=== PATIENT | female | born 1935 | race Caucasian/White ===

== ENCOUNTER → 2017-07-28 09:49 | Outpatient (CLI) | payer MEDICARE, MEDICAID, SELFPAY ==
[2017-07-28 10:22] LABS: Basophils % 0.8 % (0.1-2.0); Eosinophils # 0.3 K/mm3 (0.0-0.4); Eosinophils % 7.5 % (0.1-12.0); Hematocrit 26.3 % (37.0-47.0); Hemoglobin 8.1 g/dL (12.2-16.2); Lymphocytes # 1.2 K/mm3 (0.7-4.5); Lymphocytes % 28.3 K/mm3 (10-50); Mean Corpuscular HGB Conc 30.9 g/dL (31.8-35.4); Mean Corpuscular Hemoglobin 22.8 pg (27.0-31.2); Mean Platelet Volume 8.8 fl (7.4-10.4); Monocytes # 0.3 K/mm3 (0.1-1.0); Monocytes % 8.2 % (1.7-9.3); Neutrophils # 2.3 K/mm3 (1.8-7.8); Neutrophils % 55.3 % (37.0-80.0); Platelet Count 341 K/mm3 (142-424); Red Blood Count 3.56 M/mm3 (4.20-5.40); White Blood Count 4.1 K/mm3 (4.8-10.8)
[2017-07-28 11:20] LABS: Iron 14 ug/dl (28-170)
[2017-07-29 08:23] LABS: Iron 16 ug/dL (27-139); Iron Saturation 4 % (15-55); UIBC 377 ug/dL (118-369)
[2017-07-31 10:53] LABS: Immunoglobulin A, Qn 223 mg/dL (64-422); Tissue Transglutaminase IgA Ab <2 U/mL (0-3); Tissue Transglutaminase IgG Ab <2 U/mL (0-5)
== END ==
PROVIDERS: PCP Family Medicine Geriatric Medicine; Visit Provider Internal Medicine
DX: R06.09 Other forms of dyspnea (principal); D64.9 Anemia, unspecified; R53.83 Other fatigue
CPT/HCPCS: 36415; 82784; 83516; 83540; 83550; 85025

== ENCOUNTER → 2017-08-27 15:15 | Outpatient (CLI) | payer MEDICARE, MEDICAID, SELFPAY ==
[2017-08-27 16:11] LABS: Basophils % 0.7 % (0.1-2.0); Eosinophils # 0.3 K/mm3 (0.0-0.4); Eosinophils % 5.5 % (0.1-12.0); Hematocrit 28.2 % (37.0-47.0); Hemoglobin 8.4 g/dL (12.2-16.2); Lymphocytes # 1.5 K/mm3 (0.7-4.5); Lymphocytes % 26.1 K/mm3 (10-50); Mean Corpuscular HGB Conc 29.7 g/dL (31.8-35.4); Mean Corpuscular Hemoglobin 21.6 pg (27.0-31.2); Mean Corpuscular Volume 72.6 fl (81-99); Mean Platelet Volume 7.7 fl (7.4-10.4); Monocytes # 0.4 K/mm3 (0.1-1.0); Monocytes % 6.6 % (1.7-9.3); Neutrophils # 3.5 K/mm3 (1.8-7.8); Neutrophils % 61.1 % (37.0-80.0); Platelet Count 396 K/mm3 (142-424); Red Blood Count 3.88 M/mm3 (4.20-5.40); Red Cell Distribution Width 14.7 % (11.5-17.5); White Blood Count 5.7 K/mm3 (4.8-10.8)
[2017-08-27 19:28] LABS: Alanine Aminotransferase 21 U/L (12-78); Albumin Level 3.7 gm/dL (3.4-5.0); Albumin/Globulin Ratio 1.2 (1.1-1.8); Alkaline Phosphatase 110 U/L (46-116); Anion Gap 14.2 mEq/L (5-15); Aspartate Amino Transferase 14 U/L (15-37); Bilirubin,Total 0.4 mg/dL (0.2-1.0); Blood Urea Nitrogen 7 mg/dL (7-18); Calcium 8.6 mg/dL (8.5-10.1); Carbon Dioxide 28 mmol/L (21.0-32.0); Chloride 102 mmol/L (98-107); Creatinine,Serum 0.84 mg/dL (0.55-1.02); Estimated Glomerular Filt Rate 65 ml/min (>60); Free T4 (Free Thyroxine) 1.02 ng/dl (0.76-1.46); GFR (African American) 79 ML/MIN (>60); Glucose 90 mg/dL (74-106); Potassium 3.2 mmoL/L (3.5-5.1); Sodium 141 mmol/L (136-145); Thyroid Stimulating Hormone 2.14 uIU/ml (0.358-3.740); Total Protein,Serum 6.7 gm/dL (6.4-8.2)
[2017-08-29 15:18] LABS: Peripheral Smear Review Scanned Result
[2017-08-29 18:30] LABS: Folate 6.2 ng/mL (>3.0); Vitamin B12 431 pg/mL (232-1245)
== END ==
PROVIDERS: Visit Provider Nurse Practitioner Family
DX: D50.9 Iron deficiency anemia, unspecified (principal); I10 Essential (primary) hypertension
CPT/HCPCS: 36415; 80053; 82607; 82746; 84439; 84443; 85025

== ENCOUNTER → 2017-09-16 14:56 | Outpatient (POV) | payer MEDICARE, MEDICAID, SELFPAY ==
[2017-09-16 15:26] LABS: Basophils % 0.7 % (0.1-2.0); Eosinophils # 0.2 K/mm3 (0.0-0.4); Eosinophils % 3.7 % (0.1-12.0); Hematocrit 30.2 % (37.0-47.0); Lymphocytes # 1.4 K/mm3 (0.7-4.5); Lymphocytes % 24.8 K/mm3 (10-50); Mean Corpuscular HGB Conc 29.8 g/dL (31.8-35.4); Mean Corpuscular Hemoglobin 21.6 pg (27.0-31.2); Mean Corpuscular Volume 72.4 fl (81-99); Mean Platelet Volume 8.1 fl (7.4-10.4); Monocytes # 0.3 K/mm3 (0.1-1.0); Monocytes % 5.1 % (1.7-9.3); Neutrophils # 3.6 K/mm3 (1.8-7.8); Neutrophils % 65.8 % (37.0-80.0); Platelet Count 386 K/mm3 (142-424); Red Blood Count 4.18 M/mm3 (4.20-5.40); Red Cell Distribution Width 15.7 % (11.5-17.5); Reticulocyte % (Auto) 1.6 % (0.9-3.2); White Blood Count 5.5 K/mm3 (4.8-10.8)
[2017-09-16 18:13] LABS: Ferritin 8 ng/mL (8-388)
[2017-09-18 08:25] LABS: Iron 17 ug/dL (27-139); UIBC 459 ug/dL (118-369)
[2017-09-18 09:48] LABS: Iron Saturation 4 % (15-55)
== END ==
PROVIDERS: Visit Provider Nurse Practitioner
DX: D50.9 Iron deficiency anemia, unspecified (principal)
CPT/HCPCS: 36415; 82728; 83550; 85025; 85044

== ENCOUNTER → 2017-09-17 12:00 | Outpatient (CLI) | payer MEDICARE, MEDICAID, SELFPAY ==
[2017-09-18 14:15] LABS: Occult Blood,Stool Negative (Negative)
[2017-09-18 14:16] LABS: Occult Blood,Stool Negative (Negative)
== END ==
PROVIDERS: Visit Provider Nurse Practitioner
DX: D50.9 Iron deficiency anemia, unspecified (principal)
CPT/HCPCS: 82272; G0328

== ENCOUNTER → 2017-09-18 13:11 | Outpatient (CLI) | payer MEDICARE, MEDICAID, SELFPAY ==
[2017-09-18 14:16] LABS: Occult Blood,Stool Negative (Negative)
== END ==
PROVIDERS: Visit Provider Nurse Practitioner
DX: D50.9 Iron deficiency anemia, unspecified (principal)
CPT/HCPCS: 82272; G0328

== ENCOUNTER 2017-09-28 12:40 | Outpatient (CLI) | payer MEDICARE, MEDICAID, SELFPAY ==
[2017-09-28 13:18] VITALS: BP 152/81; PULSE 81; RESP 18; TEMP 36.4; O2SAT 97
[2017-09-28 13:33] VITALS: BP 151/79; PULSE 79; RESP 18; O2SAT 96
[2017-09-28 13:48] VITALS: BP 157/80; PULSE 80; RESP 18; O2SAT 97
[2017-09-28 14:04] VITALS: BP 150/72; PULSE 78; RESP 18; O2SAT 97
[2017-09-28 14:20] VITALS: BP 154/81; PULSE 85; RESP 18; TEMP 36.5; O2SAT 96
== END 2017-09-28 14:30 | disposition home or self-care (01) ==
LOC: INF 12:43
PROVIDERS: Family Provider Family Medicine Geriatric Medicine; PCP Nurse Practitioner Family; Visit Provider Internal Medicine
DX: D50.9 Iron deficiency anemia, unspecified (principal); D64.9 Anemia, unspecified; T45.4X5A Adverse effect of iron and its compounds, initial encounter
CPT/HCPCS: 96365; J1756

== ENCOUNTER → 2017-10-01 12:44 | Outpatient (CLI) | payer MEDICARE, MEDICAID, SELFPAY | PROVIDERS: PCP Internal Medicine Adolescent Medicine; Visit Provider Internal Medicine | DX: G47.33 Obstructive sleep apnea (adult) (pediatric) (principal) | CPT/HCPCS: G0399 ==

== ENCOUNTER 2017-10-05 12:25 | Outpatient (CLI) | payer MEDICARE, MEDICAID, SELFPAY ==
[2017-10-05 12:54] VITALS: BP 152/84; PULSE 76; RESP 18; TEMP 36.3; O2SAT 97
[2017-10-05 13:09] VITALS: BP 149/89; PULSE 74; RESP 18; O2SAT 97
[2017-10-05 13:24] VITALS: BP 151/80; PULSE 75; RESP 18; O2SAT 97
[2017-10-05 13:45] VITALS: BP 154/82; PULSE 71; RESP 18; TEMP 36.5; O2SAT 96
== END 2017-10-05 13:50 | disposition home or self-care (01) ==
LOC: INF 12:41
PROVIDERS: Family Provider Family Medicine Geriatric Medicine; PCP Internal Medicine Adolescent Medicine; Visit Provider Internal Medicine
DX: D50.9 Iron deficiency anemia, unspecified (principal); T45.4X5A Adverse effect of iron and its compounds, initial encounter
CPT/HCPCS: 96365; J1756

== ENCOUNTER 2017-10-12 12:35 | Outpatient (CLI) | payer MEDICARE, MEDICAID, SELFPAY ==
[2017-10-12 13:05] VITALS: BP 153/79; PULSE 73; RESP 18; TEMP 36.8
[2017-10-12 13:35] VITALS: BP 155/91; PULSE 73; RESP 18
[2017-10-12 14:05] VITALS: BP 166/72; PULSE 69; RESP 18
[2017-10-12 14:13] VITALS: BP 166/86; PULSE 69; RESP 18
[2017-10-12 14:20] VITALS: BP 166/86; PULSE 69; RESP 18
== END 2017-10-12 14:33 | disposition home or self-care (01) ==
LOC: INF 12:35
PROVIDERS: Family Provider Family Medicine Geriatric Medicine; PCP Internal Medicine Adolescent Medicine; Visit Provider Internal Medicine
DX: D50.9 Iron deficiency anemia, unspecified (principal); T45.4X5A Adverse effect of iron and its compounds, initial encounter
CPT/HCPCS: 96365; J1756

== ENCOUNTER 2017-10-22 12:46 | Outpatient (CLI) | payer MEDICARE, MEDICAID, SELFPAY ==
[2017-10-22 13:23] VITALS: BP 146/84; PULSE 81; RESP 18; TEMP 36.6; O2SAT 96
[2017-10-22 13:50] VITALS: BP 150/81; PULSE 75; RESP 18
[2017-10-22 14:15] VITALS: BP 134/79; PULSE 75; RESP 20; TEMP 36.6; O2SAT 97
[2017-10-22 14:30] VITALS: BP 146/84; PULSE 79; RESP 18
== END 2017-10-22 14:35 | disposition home or self-care (01) ==
LOC: INF 12:46
PROVIDERS: Family Provider Family Medicine Geriatric Medicine; PCP Internal Medicine Adolescent Medicine; Visit Provider Internal Medicine
DX: D50.9 Iron deficiency anemia, unspecified (principal); D64.9 Anemia, unspecified
CPT/HCPCS: 96365; J1756

== ENCOUNTER → 2017-10-28 13:54 | Outpatient (CLI) | payer MEDICARE, MEDICAID, SELFPAY ==
--- NOTE | 2017-10-28 13:57 | XR_ITS ---
XR acute abdomen series Ordering Physician: Estela Hills Patient Age: 81 years: Female HISTORY: ITS.REASON: ABD PAIN S/P RECENT COLONOSCOPY, ANEMIA TECHNIQUE: Upright chest with flat and upright views of abdomen COMPARISON : 2 view chest 05/22/2017 CT chest... February 2017. CT abdomen January 15 FINDINGS :...... CHEST:: No free air beneath the diaphragm no acute findings Stable chest lungs clear nothing definitely acute. No CHF. No focal infiltrate or consolidation. Tiny nodular density midlung most likely compatible with partially calcified granuloma here and at left base as seen on previous CT 03/23/2017 Tortuous aorta..Hiatal hernia accounts for density retrocardiac region Previous RCT repair right shoulder ABDOMEN FLAT AND UPRIGHT IMPRESSION: Nonspecific bowel gas pattern. Moderate stool and gas throughout the large bowel most evident at the right and transverse colon. No bowel dilatation or obstruction. No organomegaly. Postsurgical changes right abdomen and 2 additional small linear metallic densities project over the right colon either ingested elements or possible reflect postsurgical changes here since December 2016. Less likely an overlying clothing No organomegaly prominent degenerative changes T spine with levoscoliosis. -----IMPRESSION------ 1. Nonspecific bowel gas pattern no bowel dilatation or obstruction. No free air Moderate stool throughout the right and transverse colon stool 2. Stable chest no active disease. Lungs clear Hiatal hernia. Density again noted. Old granulomas disease
== END ==
PROVIDERS: Family Provider Family Medicine Geriatric Medicine; PCP Nurse Practitioner Family; Visit Provider Nurse Practitioner
DX: R10.9 Unspecified abdominal pain (principal); D64.9 Anemia, unspecified
CPT/HCPCS: 74021

== ENCOUNTER → 2017-10-29 19:30 | Outpatient (CLI) | payer MEDICARE, MEDICAID, SELFPAY ==
[2017-11-03 12:19] LABS: Occult Blood,Stool Positive (Negative)
== END ==
PROVIDERS: Visit Provider Internal Medicine Gastroenterology
DX: D64.9 Anemia, unspecified (principal)
CPT/HCPCS: 82272; G0328

== ENCOUNTER → 2017-10-31 15:00 | Outpatient (CLI) | payer MEDICARE, MEDICAID, SELFPAY ==
[2017-11-03 12:19] LABS: Occult Blood,Stool Negative (Negative)
== END ==
PROVIDERS: Visit Provider Internal Medicine Gastroenterology
DX: D64.9 Anemia, unspecified (principal)
CPT/HCPCS: 82272; G0328

== ENCOUNTER → 2017-11-01 15:00 | Outpatient (CLI) | payer MEDICARE, MEDICAID, SELFPAY ==
[2017-11-03 12:20] LABS: Occult Blood,Stool Negative (Negative)
== END ==
PROVIDERS: Visit Provider Internal Medicine Gastroenterology
DX: D64.9 Anemia, unspecified (principal)
CPT/HCPCS: 82272; G0328

== ENCOUNTER → 2017-11-12 15:53 | Outpatient (CLI) | payer MEDICARE, MEDICAID, SELFPAY ==
[2017-11-12 16:13] LABS: Basophils % 0.6 % (0.1-2.0); Eosinophils # 0.3 K/mm3 (0.0-0.4); Eosinophils % 3.8 % (0.1-12.0); Lymphocytes # 1.8 K/mm3 (0.7-4.5); Lymphocytes % 27.9 K/mm3 (10-50); Mean Corpuscular HGB Conc 31.7 g/dL (31.8-35.4); Mean Corpuscular Hemoglobin 24.6 pg (27.0-31.2); Mean Corpuscular Volume 77.8 fl (81-99); Mean Platelet Volume 8.1 fl (7.4-10.4); Monocytes # 0.4 K/mm3 (0.1-1.0); Monocytes % 6.5 % (1.7-9.3); Neutrophils % 61.1 % (37.0-80.0); Platelet Count 319 K/mm3 (142-424); Red Blood Count 4.88 M/mm3 (4.20-5.40); Red Cell Distribution Width 19.5 % (11.5-17.5); White Blood Count 6.5 K/mm3 (4.8-10.8)
[2017-11-12 21:05] LABS: Ferritin 115 ng/mL (8-388)
[2017-11-14 07:22] LABS: Iron 43 ug/dL (27-139); UIBC 288 ug/dL (118-369)
[2017-11-14 18:39] LABS: Iron Saturation 13 % (15-55)
== END ==
PROVIDERS: Visit Provider Internal Medicine
DX: D50.9 Iron deficiency anemia, unspecified (principal)
CPT/HCPCS: 36415; 82728; 83550; 85025

== ENCOUNTER → 2018-01-20 13:39 | Outpatient (CLI) | payer MEDICARE, MEDICAID, SELFPAY ==
[2018-01-20 14:13] LABS: Basophils % 0.7 % (0.1-2.0); Eosinophils # 0.3 K/mm3 (0.0-0.4); Eosinophils % 5.3 % (0.1-12.0); Hematocrit 38.4 % (37.0-47.0); Hemoglobin 12.4 g/dL (12.2-16.2); Lymphocytes # 1.4 K/mm3 (0.7-4.5); Lymphocytes % 29.3 K/mm3 (10-50); Mean Corpuscular HGB Conc 32.4 g/dL (31.8-35.4); Mean Corpuscular Hemoglobin 26.7 pg (27.0-31.2); Mean Corpuscular Volume 82.6 fl (81-99); Mean Platelet Volume 7.6 fl (7.4-10.4); Monocytes # 0.3 K/mm3 (0.1-1.0); Monocytes % 7.3 % (1.7-9.3); Neutrophils # 2.7 K/mm3 (1.8-7.8); Neutrophils % 57.4 % (37.0-80.0); Platelet Count 295 K/mm3 (142-424); Red Blood Count 4.65 M/mm3 (4.20-5.40); Red Cell Distribution Width 14.8 % (11.5-17.5); White Blood Count 4.7 K/mm3 (4.8-10.8)
[2018-01-20 15:01] LABS: Alanine Aminotransferase 20 U/L (12-78); Albumin Level 3.7 gm/dL (3.4-5.0); Albumin/Globulin Ratio 1.2 (1.1-1.8); Alkaline Phosphatase 116 U/L (46-116); Anion Gap 10.4 mEq/L (5-15); Aspartate Amino Transferase 9 U/L (15-37); Bilirubin,Total 0.3 mg/dL (0.2-1.0); Blood Urea Nitrogen 7 mg/dL (7-18); Calcium 9.3 mg/dL (8.5-10.1); Carbon Dioxide 30 mmol/L (21.0-32.0); Chloride 106 mmol/L (98-107); Creatinine,Serum 0.82 mg/dL (0.55-1.02); Estimated Glomerular Filt Rate 67 ml/min (>60); GFR (African American) 81 ML/MIN (>60); Globulin 3.2 gm/dl (1.3-3.2); Glucose 80 mg/dL (74-106); Potassium 4.4 mmoL/L (3.5-5.1); Sodium 142 mmol/L (136-145); Thyroid Stimulating Hormone 2.39 uIU/ml (0.358-3.740); Total Protein,Serum 6.9 gm/dL (6.4-8.2)
== END ==
PROVIDERS: Visit Provider Internal Medicine
DX: D50.9 Iron deficiency anemia, unspecified (principal); R53.83 Other fatigue
CPT/HCPCS: 36415; 80053; 84443; 85025

== ENCOUNTER → 2018-02-19 12:03 | Outpatient (CLI) | payer MEDICARE, MEDICAID, SELFPAY ==
[2018-02-19 13:21] LABS: Basophils % 0.7 % (0.1-2.0); Eosinophils # 0.4 K/mm3 (0.0-0.4); Eosinophils % 7.3 % (0.1-12.0); Hematocrit 37.4 % (37.0-47.0); Hemoglobin 12.4 g/dL (12.2-16.2); Lymphocytes # 1.2 K/mm3 (0.7-4.5); Mean Corpuscular HGB Conc 33.2 g/dL (31.8-35.4); Mean Corpuscular Volume 84.5 fl (81-99); Mean Platelet Volume 7.5 fl (7.4-10.4); Monocytes # 0.4 K/mm3 (0.1-1.0); Monocytes % 7.7 % (1.7-9.3); Neutrophils % 60.2 % (37.0-80.0); Platelet Count 322 K/mm3 (142-424); Red Blood Count 4.42 M/mm3 (4.20-5.40); Red Cell Distribution Width 14.7 % (11.5-17.5)
[2018-02-19 14:17] LABS: Alanine Aminotransferase 19 U/L (12-78); Albumin Level 3.7 gm/dL (3.4-5.0); Albumin/Globulin Ratio 1.2 (1.1-1.8); Alkaline Phosphatase 123 U/L (46-116); Anion Gap 11.3 mEq/L (5-15); Aspartate Amino Transferase 13 U/L (15-37); Bilirubin,Total 0.5 mg/dL (0.2-1.0); Blood Urea Nitrogen 7 mg/dL (7-18); Calcium 8.9 mg/dL (8.5-10.1); Carbon Dioxide 31 mmol/L (21.0-32.0); Chloride 104 mmol/L (98-107); Creatinine,Serum 0.95 mg/dL (0.55-1.02); Estimated Glomerular Filt Rate 56 ml/min (>60); GFR (African American) 68 ML/MIN (>60); Globulin 3.2 gm/dl (1.3-3.2); Glucose 88 mg/dL (74-106); Potassium 4.3 mmoL/L (3.5-5.1); Sodium 142 mmol/L (136-145); Total Protein,Serum 6.9 gm/dL (6.4-8.2); Uric Acid 4.5 mg/dL (2.6-7.2)
[2018-02-19 15:53] LABS: Erythrocyte Sedimentation Rate 19 mm/hr (0-30)
[2018-02-20 08:19] LABS: Iron 76 ug/dL (27-139); Iron Saturation 25 % (15-55); UIBC 232 ug/dL (118-369)
[2018-02-22 12:55] LABS: RA Latex Turbid. 14.6 IU/mL (0.0-13.9)
[2018-02-24 08:45] LABS: Anti-Cyclic Citrullinated Pept 6 units (0-19); Antinuclear Antibodies, IFA Positive (.)
== END ==
PROVIDERS: PCP Nurse Practitioner Family; Visit Provider Nurse Practitioner Family
DX: D50.9 Iron deficiency anemia, unspecified (principal); I10 Essential (primary) hypertension; M25.50 Pain in unspecified joint; E55.9 Vitamin D deficiency, unspecified
CPT/HCPCS: 36415; 80053; 82652; 83540; 83550; 84550; 85025; 85651; 86038; 86200; 86431

== ENCOUNTER → 2018-07-13 15:40 | Outpatient (CLI) | payer MEDICARE, SELFPAY ==
[2018-07-13 16:35] LABS: Basophils % 0.7 % (0.1-2.0); Eosinophils # 0.2 K/mm3 (0.0-0.4); Eosinophils % 3.6 % (0.1-12.0); Hematocrit 37.5 % (37.0-47.0); Hemoglobin 11.9 g/dL (12.2-16.2); Lymphocytes # 1.7 K/mm3 (0.7-4.5); Lymphocytes % 30.2 % (10-50); Mean Corpuscular HGB Conc 31.8 g/dL (31.8-35.4); Mean Corpuscular Hemoglobin 27.8 pg (27.0-31.2); Mean Corpuscular Volume 87.5 fl (81-99); Mean Platelet Volume 7.1 fl (7.4-10.4); Monocytes # 0.4 K/mm3 (0.1-1.0); Monocytes % 6.4 % (1.7-9.3); Neutrophils # 3.3 K/mm3 (1.8-7.8); Neutrophils % 59.1 % (37.0-80.0); Platelet Count 335 K/mm3 (142-424); Red Blood Count 4.28 M/mm3 (4.20-5.40); Red Cell Distribution Width 13.9 % (11.5-17.5); White Blood Count 5.5 K/mm3 (4.8-10.8)
[2018-07-13 16:51] LABS: Hemoglobin A1C 5.5 % (0.0-7.0)
[2018-07-13 17:13] LABS: Alanine Aminotransferase 21 U/L (12-78); Albumin Level 3.6 gm/dL (3.4-5.0); Albumin/Globulin Ratio 1.1 (1.1-1.8); Alkaline Phosphatase 108 U/L (46-116); Anion Gap 12.5 mEq/L (5-15); Aspartate Amino Transferase 12 U/L (15-37); Bilirubin,Total 0.4 mg/dL (0.2-1.0); Blood Urea Nitrogen 7 mg/dL (7-18); Carbon Dioxide 28 mmol/L (21.0-32.0); Chloride 103 mmol/L (98-107); Chol/HDL Ratio 4.9 (1-3.5); Cholesterol 196 mg/dL (140-200); Creatinine,Serum 0.89 mg/dL (0.55-1.02); Estimated Glomerular Filt Rate 61 ml/min (>60); GFR (African American) 73 ML/MIN (>60); Globulin 3.4 gm/dl (1.3-3.2); Glucose 91 mg/dL (74-106); HDL Cholesterol 40 mg/dL (29-89); LDL Cholesterol 125 mg/dL (0-130); Potassium 4.5 mmoL/L (3.5-5.1); Sodium 139 mmol/L (136-145); Triglycerides 154 mg/dL (30-200); VLDL Cholesterol 31 mg/dL (0-40)
[2018-07-16 17:08] LABS: Vitamin B12 291 pg/mL (232-1245); Vitamin D 25 Hydroxy 34.3 ng/mL (30.0-100.0)
== END ==
PROVIDERS: Visit Provider Internal Medicine Adolescent Medicine
DX: D50.9 Iron deficiency anemia, unspecified (principal); I10 Essential (primary) hypertension; M79.2 Neuralgia and neuritis, unspecified; Z79.899 Other long term (current) drug therapy
CPT/HCPCS: 36415; 80053; 80061; 82607; 82652; 83036; 85025

== ENCOUNTER → 2018-07-23 14:32 | Outpatient (CLI) | payer MEDICARE, MEDICAID, SELFPAY ==
--- NOTE | 2018-07-23 | CA_ITS ---
PROCEDURE: 2-D M-mode and color Doppler study INDICATIONS FOR THE TEST: Chest pain COPD Heart Murmur Tobacco SmokingEX Palpitations Fatigue Syncope Edema Hypertension+Diabetes Mellitus Rheumatic Fever SOB VARGAS Obesity Hyperlipidemia Family History HD + Additional History History of PE's PATIENT INFORMATION HEIGHT: 62 WEIGHT: 151 GENDER: Female B/P: 146/74 2-D/M-MODE INTERPRETATION: 2-D MEASUREMENTS OBSERVED VALUES IN CMS Right Ventricular Dimension (RVDd) 2.3 Interventricular Septum (Thickness)(IVsd) 0.9 Left Ventricular Internal Dimensions(LVIDd) 3.6 Left Ventricular Posterior Wall (Thickness)(LVPWd) 0.9 Aortic Root 2.7 Aortic Cusp Separation 2.1 Left Atrial Dimensions (LAD) 4.4 2D 1. Left atrium is mildly enlarged, left ventricle is normal size, there is mild concentric left ventricular hypertrophy, visually estimated ejection fraction 55% motion abnormality. 2. The right atrium and right ventricle are qualitatively mildly enlarged with normal contractility. 3. The aortic valve is minimally thickened and fibrosed to continue to display mobility. 4. The mitral and tricuspid valve leaflets are minimally thickened 5. The pulmonic valve is poorly visualized. 6. No significant pericardial effusion noted. DOPPLER INTERROGATION: Doppler interrogation of the aortic, mitral and tricuspid valvular presence of mild aortic, mild mitral and tricuspid agitation, calculated of ventricular systolic pressure is 48 mmHg consistent with moderate pulmonary hypertension, grade 1 diastolic dysfunction seen with tissue Doppler evidence of raised left atrial pressure. CONCLUSION: 1. Mildly enlarged left atrium, normal left ventricular size, mild concentric left ventricular hypertrophy, visually estimated ejection fraction 55% with no wall motion abnormality, grade 1 diastolic dysfunction seen with tissue Doppler evidence of raised left atrial pressure. 2. Mildly enlarged right ventricle with normal contractility. 3. Mild aortic, mild mitral and tricuspid, calculated right ventricular systolic pressure is 48 mmHg system with moderate pulmonary hypertension. 4. No Significant pericardial effusion noted.
== END ==
PROVIDERS: PCP Internal Medicine Adolescent Medicine; Visit Provider Internal Medicine Adolescent Medicine
DX: I27.20 Pulmonary hypertension, unspecified (principal)
CPT/HCPCS: 93306

== ENCOUNTER → 2018-10-12 11:26 | Outpatient (POV) | payer MEDICARE, SELFPAY ==
[2018-10-12 12:52] LABS: Basophils % 0.7 % (0.1-2.0); Eosinophils # 0.2 K/mm3 (0.0-0.4); Eosinophils % 4.4 % (0.1-12.0); Hematocrit 38.8 % (37.0-47.0); Lymphocytes # 1.6 K/mm3 (0.7-4.5); Lymphocytes % 30.7 % (10-50); Mean Corpuscular HGB Conc 33.5 g/dL (31.8-35.4); Mean Corpuscular Hemoglobin 28.8 pg (27.0-31.2); Mean Corpuscular Volume 86.1 fl (81-99); Mean Platelet Volume 7.6 fl (7.4-10.4); Monocytes # 0.3 K/mm3 (0.1-1.0); Monocytes % 6.1 % (1.7-9.3); Neutrophils % 58.1 % (37.0-80.0); Platelet Count 329 K/mm3 (142-424); Red Blood Count 4.51 M/mm3 (4.20-5.40); Red Cell Distribution Width 13.7 % (11.5-17.5); White Blood Count 5.1 K/mm3 (4.8-10.8)
== END ==
PROVIDERS: Nurse Practitioner Family; Visit Provider Internal Medicine
DX: D64.9 Anemia, unspecified (principal); J44.9 Chronic obstructive pulmonary disease, unspecified
CPT/HCPCS: 36415; 85025

== ENCOUNTER → 2018-10-13 07:57 | Outpatient (CLI) | payer MEDICARE, SELFPAY ==
--- NOTE | 2018-10-13 08:01 | CT_ITS ---
CT abdomen pelvis wo con CLINICAL INDICATION: Right flank pain, right lower quadrant pain, microscopic hematuria ITS.REASON: MICROSCOPIC HEMATURIA, RT FLANK PAIN ORDERING PHYSICIAN: Gina Rios PATIENT AGE: 82 years COMPARISON: 01/16/2017 TECHNIQUE: Axial images obtained with sagittal and coronal reformats. All CT scans at the facility use one or more dose reduction, viz: automated exposure control, ma/kV adjustment per patient size (including targeted exams where dose is matched to indication, i.e. head), or iterative reconstruction technique. PROCEDURE: Oral Contrast: None IV Contrast: None . FINDINGS: There is a moderate-sized hiatal hernia. There are coronary artery calcifications. Prior cholecystectomy. The liver, spleen, adrenal glands, pancreas, and kidneys have an unremarkable unenhanced appearance. No renal or ureteral calculi.. No obvious renal mass on this unenhanced exam. There is a moderate amount retained colonic feces. There is diverticulosis of the sigmoid colon but no evidence of diverticulitis. Prior appendectomy and hysterectomy. No pelvic mass abnormal fluid collection or focal inflammatory change of the pelvis. Urinary bladder has an unremarkable appearance. There is degenerative disc disease of the lumbar spine. IMPRESSION: 1. No renal or ureteral calculi. 2. Moderate amount of retained colonic feces with sigmoid diverticulosis. 3. Moderate-sized hiatal hernia 4. No acute abdominal or pelvic findings.
== END ==
PROVIDERS: PCP Internal Medicine Adolescent Medicine; Visit Provider Nurse Practitioner Family
DX: R10.9 Unspecified abdominal pain (principal); R31.29 Other microscopic hematuria
CPT/HCPCS: 74176

== ENCOUNTER → 2019-04-04 12:23 | Outpatient (POV) | payer MEDICARE, SELFPAY ==
[2019-04-04 12:57] VITALS: BP 133/65; PULSE 81; RESP 16; O2SAT 95; BMI 28.8
--- NOTE | 2019-04-05 09:01 | HMH.PMCON ---
Assessment and Plan (1) Degenerative disc disease Current visit: Yes Status: Chronic Qualifiers: Spinal region: lumbar Qualified Code(s): M51.36 - Other intervertebral disc degeneration, lumbar region Category: Medical (2) Lumbar spondylosis Current visit: Yes Status: Chronic Category: Medical Code(s): M47.816 - Spondylosis without myelopathy or radiculopathy, lumbar region (3) Knee pain Current visit: Yes Status: Chronic Category: Medical Code(s): M25.569 - Pain in unspecified knee - Assessment and plan all Dx Assessment and Plan for all problems:: We will schedule medial branch block at L3-L4 L4-5 L5-S1 bilaterally. We will see if this is beneficial for the patient. Patient's been instructed to call the office if she has any issues prior to her next appointment. I will follow-up with her after this. We did have a long discussion in regards to the diagnostic nature of this injection. She may be a neurotomy candidate. She is not having any active infections at this time. She is continuing a home stretching program. She is not on any anticoagulation therapy. Dr. Hawkins has reviewed this note and agrees with this plan of care. This note was dictated using voice recognition software and may contain errors or omissions HPI - Data of Consult Consult date: 04/04/19 Requesting Physician: Bianca Galvan APRN Primary Care Provider: Gina Rios APRN - Consult Narrative Reason for consult: Back pain, knee pain History of present illness: Ms. Arriaga is a 83 year old female who presents today for consultation in regards to her back and knee pain. Patient's been seen by neurosurgeons in the past she states Dr. Hutson did not do nothing . Patient states also she has had 30 shots in her knees and she states she now refuses steroid injections because it is like a glass of water she has no numbness and tingling in her legs. She pointed at the pain pump advertisement and she states that ain't going to have a packet put in my back it almost killed my daughter patient states that her daughter had a pain pump put in by a physician in [place] several years ago it was removed the next day. She rates her pain an 8 out of 10 mostly in her low back. She does have noted facet arthropathy and lumbar spondylosis on her MRI. Patient and I discussed medial branch blocks. She states she is willing to try this at this point. She is not on any anticoagulation therapy. She has completed physical therapy and is continuing a home stretching program. We also briefly discussed potential genicular blocks for her knees. CC: Bianca Galvan APRN [facility] History I have reviewed the patient's past medical history: Yes Medical History: Reports:: Asthma, Deep Vein Thrombosis, Depression, Hypertension, Lung Disease (PE history) Denies:: Cancer, Diabetes Mellitus Type 1, Diabetes Mellitus Type 2, Internal Pacemaker, MRSA, Seizures *Have you ever received a pneumonia vaccine?: Yes *Have you received a flu vaccine this season?: Yes Other Medical History: Reports: Anemia, Arthritis, Other. Denies: Blood Transfusion Reaction Other Surgeries: Yes: Cholecystectomy, , Hysterectomy-Total, Thyroidectomy, Other. No: Pacemaker Amputation: No Fractures: Yes (RIGHT ANKLE) - *Social History Smoking Status: Former smoker Tobacco Type: cigarettes # Packs/Day (cigarettes): 1 #Yrs smoked (if former smoker): 9 Alcohol Intake: never Substance Use Type: denies use *Occupational Status:: retired Housing: house Household Members: spouse *Travel in the last 8 weeks: None - Psychiatric History Pschychiatric History:: Reports:: Depression Family Hx:: Diabetes, Cancer, Heart Attack Review of Systems - Review of Systems ROS General: no recent weight change, no fever, no sleep disturbances Respiratory: no cough, no shortness of air, no recurring pulmonary infections Cardiovascular/Peripheral Vascular: No chest pain,
--- NOTE | 2019-04-05 09:04 | P.CONS_ITS ---
Assessment and Plan (1) Degenerative disc disease Current visit: Yes Status: Chronic Qualifiers: Spinal region: lumbar Qualified Code(s): M51.36 - Other intervertebral disc degeneration, lumbar region Category: Medical (2) Lumbar spondylosis Current visit: Yes Status: Chronic Category: Medical Code(s): M47.816 - Spondylosis without myelopathy or radiculopathy, lumbar region (3) Knee pain Current visit: Yes Status: Chronic Category: Medical Code(s): M25.569 - Pain in unspecified knee - Assessment and plan all Dx Assessment and Plan for all problems:: We will schedule medial branch block at L3-L4 L4-5 L5-S1 bilaterally. We will see if this is beneficial for the patient. Patient's been instructed to call the office if she has any issues prior to her next appointment. I will follow- up with her after this. We did have a long discussion in regards to the diagnostic nature of this injection. She may be a neurotomy candidate. She is not having any active infections at this time. She is continuing a home stretching program. She is not on any anticoagulation therapy. Dr. Hawkins has reviewed this note and agrees with this plan of care. This note was dictated using voice recognition software and may contain errors or omissions HPI - Data of Consult Consult date: 04/04/19 Requesting Physician: Bianca Galvan APRN Primary Care Provider: Gian Rios APRN - Consult Narrative Reason for consult: Back pain, knee pain History of present illness: Ms. Arriaga is a 83 year old female who presents today for consultation in regards to her back and knee pain. Patient's been seen by neurosurgeons in the past she states Dr. Hutson did not do nothing . Patient states also she has had 30 shots in her knees and she states she now refuses steroid injections because it is like a glass of water she has no numbness and tingling in her legs. She pointed at the pain pump advertisement and she states that ain't going to have a packet put in my back it almost killed my daughter patient states that her daughter had a pain pump put in by a physician in [place] several years ago it was removed the next day. She rates her pain an 8 out of 10 mostly in her low back. She does have noted facet arthropathy and lumbar spondylosis on her MRI. Patient and I discussed medial branch blocks. She states she is willing to try this at this point. She is not on any anticoagulation therapy. She has completed physical therapy and is continuing a home stretching program. We also briefly discussed potential genicular blocks for her knees. CC: Bianca Galvan APRN [facility] History I have reviewed the patient's past medical history: Yes Medical History: Reports:: Asthma, Deep Vein Thrombosis, Depression, Hypertension, Lung Disease (PE history) Denies:: Cancer, Diabetes Mellitus Type 1, Diabetes Mellitus Type 2, Internal Pacemaker, MRSA, Seizures *Have you ever received a pneumonia vaccine?: Yes *Have you received a flu vaccine this season?: Yes Other Medical History: Reports: Anemia, Arthritis, Other. Denies: Blood Transfusion Reaction Other Surgeries: Yes: Cholecystectomy, , Hysterectomy-Total, Thyroidectomy, Other. No: Pacemaker Amputation: No Fractures: Yes (RIGHT ANKLE) - *Social History Smoking Status: Former smoker Tobacco Type: cigarettes # Packs/Day (cigarettes): 1 #Yrs smoked (if former smoker): 9 Alcohol Intake: never Substance Use Type: denies use *Occupational Status:: retired Housing: house Household Members: spouse *Travel in the last 8 weeks: None - Psychiatric Hi
== END ==
PROVIDERS: PCP Nurse Practitioner Family; Visit Provider Clinical Nurse Specialist Family Health
DX: M51.36 Other intervertebral disc degeneration, lumbar region (principal); M47.816 Spondylosis without myelopathy or radiculopathy, lumbar region; M25.569 Pain in unspecified knee
CPT/HCPCS: 99202

== ENCOUNTER → 2019-04-14 12:31 | Outpatient (CLI) | payer MEDICARE, SELFPAY ==
--- NOTE | 2019-04-14 12:37 | XR_ITS ---
PROCEDURE: XR FOOT WT BEARING RT 3V CLINICAL INDICATION: pain The COMPARISON: Foot pain FINDINGS: Pes planus. Osteoarthritic changes are present at the navicular cuneiform junction and at the cuneiform metatarsal junction at the 1st 2nd and 3rd metatarsals as well as the cuboid metatarsal junction. No fracture or dislocation. There are prominent bony hypertrophic changes at the 1st metatarsal tarsal junction. Mild osteoarthritic changes are present at the 1st metatarsophalangeal joint. Hammertoe deformity is noted at the 2nd toe Other findings:Osteoarthritis of the ankle also noted IMPRESSION: Osteoarthritic change with pes planus Dictated by: Marcus Tellez MD 04/14/2019 16:22 Electronically signed by Marcus Tellez MD in [place] 04/14/2019 16:22
--- NOTE | 2019-04-14 12:37 | XR_ITS ---
PROCEDURE: XR FOOT WT BEARING LT 3V CLINICAL INDICATION: pain COMPARISON: No exams were available for comparison FINDINGS: No fracture or dislocation. No lytic or blastic change. There is normal mineralization. There is pes planus. There are osteoarthritic changes of the metatarsal tarsal joint and the mid cuneiform. Most prominent at the 1st metatarsal tarsal joint with bony protuberance posteriorly. There is hammertoe deformity of the 2nd and 3rd toes with osteoarthritic change of the 1st metatarsophalangeal joint, PIP 2nd digit, osteoarthritis of the 3rd metatarsophalangeal joint and PIP. There is a small calcaneal spur. The lateral view suggests some sclerosis as well as possible lucency in the subchondral region of the talus. Ankle films may confirm. Other findings:None. IMPRESSION: 1. 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 Pes planus. 3. 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 Consider ankle films for further evaluation Dictated by: Marcus Tellez MD 04/14/2019 16:31 Electronically signed by Marcus Tellez MD in [place] 04/14/2019 16:31
== END ==
PROVIDERS: PCP Internal Medicine Adolescent Medicine; Visit Provider Podiatrist
DX: M20.42 Other hammer toe(s) (acquired), left foot (principal); M20.41 Other hammer toe(s) (acquired), right foot
CPT/HCPCS: 73630

== ENCOUNTER → 2019-04-15 13:01 | Outpatient (CLI) | payer MEDICARE, SELFPAY ==
[2019-04-15 15:30] VITALS: PULSE 81
== END ==
PROVIDERS: PCP Internal Medicine Adolescent Medicine; Visit Provider Internal Medicine
DX: J45.909 Unspecified asthma, uncomplicated (principal); R06.02 Shortness of breath
CPT/HCPCS: 94060; 94640

== ENCOUNTER → 2019-05-30 15:03 | Outpatient (POV) | payer MEDICARE, SELFPAY ==
[2019-05-30 15:24] VITALS: BP 167/92; PULSE 85; RESP 18; O2SAT 99; BMI 28.7
--- NOTE | 2019-05-30 15:27 | HMH.PAINSOAP ---
[facility] Pain Management SOAP Note Subjective:: Patient is a very pleasant 83-year-old white female who presents today for follow-up after her medial branch block. Patient is pain-free. Patient's only pain today is in her right knee. Patient and I discussed genicular blocks she is had multiple intra-articular injections with no long-term relief. Patient rates her pain in her me a 4 out of 10. She does state that it makes ADLs difficult. ROS General: no recent weight change, no fever, no sleep disturbances Respiratory: no cough, no shortness of air, no recurring pulmonary infections Cardiovascular/Peripheral Vascular: No chest pain, No palpitations, no edema, no shortness of breath. Gastrointestinal: no new onset incontinence, normal bowel movements reported Genitourinary: no new onset incontinence Musculoskeletal: Right knee pain Psychiatric: normal mood/ affect Neurological: [denies new onset weakness in extremities], [denies new onset balance issues] Objective:: Physical Exam General: Alert and oriented x3, no acute distress, pleasant and cooperative, [on room air] Lungs: Resps E/U, Symmetrical chest expansion, Eyes: PERRL Musculoskeletal: Flexion and extension of lumbar spine somewhat guarded secondary to pain, deep tendon reflexes normal, strength in upper and lower extremities [5/5], [abnormal gait noted] decreased range of motion with right knee Neurological: speech clear, jewel sorter equal, no gross sensory deficits Assessment:: Right knee pain, spondylosis, facet arthropathy Plan:: Good stuff we will set the patient up for right genicular block. I will follow-up with her after this reassess her symptoms at that time she is been instructed to call the office if she has any issues prior to her next appointment. Dr. Hawkins has reviewed this note and agrees with this plan of care. This note was dictated using voice recognition software and may contain errors or omissions [facility] History I have reviewed the patient's past medical history: Yes Medical History: Reports:: Asthma, Deep Vein Thrombosis, Depression, Gastroesophageal Reflux Disease(GERD), Hiatal Hernia, Hypertension, Lung Disease, Pulmonary Embolism Denies:: Cancer, Diabetes Mellitus Type 1, Diabetes Mellitus Type 2, Internal Pacemaker, MRSA, Seizures *Have you ever received a pneumonia vaccine?: Yes *Have you received a flu vaccine this season?: Yes Other Medical History: Reports: Anemia, Arthritis, Other. Denies: Blood Transfusion Reaction Laterality Cases: Other Surgeries: Yes: Cholecystectomy, Colonoscopy, , Hysterectomy-Total, Thyroidectomy, Other. No: Pacemaker Amputation: No Fractures: Yes (RIGHT ANKLE) - *Social History Smoking Status: Former smoker Tobacco Type: cigarettes # Packs/Day (cigarettes): 1 #Yrs smoked (if former smoker): 9 Alcohol Intake: never Substance Use Type: denies use *Occupational Status:: other Housing: house Household Members: spouse *Travel in the last 8 weeks: None - Psychiatric History Pschychiatric History:: Reports:: Depression Family Hx:: Diabetes, Cancer, Heart Attack
== END ==
PROVIDERS: PCP Nurse Practitioner Family; Visit Provider Clinical Nurse Specialist Family Health
DX: M25.561 Pain in right knee (principal); M47.9 Spondylosis, unspecified; M12.9 Arthropathy, unspecified
CPT/HCPCS: 99212

== ENCOUNTER → 2019-09-12 10:48 | Outpatient (CLI) | payer MEDICARE, SELFPAY ==
[2019-09-12 11:34] LABS: Basophils % 0.8 % (0.1-2.0); Eosinophils # 0.3 K/mm3 (0.0-0.4); Eosinophils % 6.1 % (0.1-12.0); Hematocrit 39.9 % (37.0-47.0); Hemoglobin 12.8 g/dL (12.2-16.2); Lymphocytes # 1.5 K/mm3 (0.7-4.5); Lymphocytes % 29.4 % (10-50); Mean Corpuscular HGB Conc 32.1 g/dL (31.8-35.4); Mean Corpuscular Hemoglobin 27.8 pg (27.0-31.2); Mean Corpuscular Volume 86.5 fl (81-99); Mean Platelet Volume 8.4 fl (7.4-10.4); Monocytes # 0.3 K/mm3 (0.1-1.0); Monocytes % 6.3 % (1.7-9.3); Neutrophils % 57.4 % (37.0-80.0); Platelet Count 318 K/mm3 (142-424); Red Blood Count 4.61 M/mm3 (4.20-5.40); Red Cell Distribution Width 13.3 % (11.5-17.5); White Blood Count 5.1 K/mm3 (4.8-10.8)
[2019-09-12 13:30] LABS: Chloride 104 mmol/L (98-107)
[2019-09-12 13:31] LABS: Sodium 140 mmol/L (136-145)
[2019-09-12 13:33] LABS: Alanine Aminotransferase 17 U/L (12-78); Albumin Level 3.8 g/dl (3.5-5.0); Albumin/Globulin Ratio 1.5 (1.1-1.8); Alkaline Phosphatase 71 U/L (38-126); Aspartate Amino Transferase 23 U/L (14-36); Bilirubin,Total 0.4 mg/dl (0.2-1.3); Blood Urea Nitrogen 9 mg/dl (7-17); Calcium 9.7 mg/dl (8.4-10.2); Carbon Dioxide 29 mmol/L (22.0-30.0); Estimated Glomerular Filt Rate 68 ml/min (>60); GFR (African American) 83 ML/MIN (>60); Globulin 2.5 g/dL (1.3-3.2); Glucose 94 mg/dl (74-100); Total Protein,Serum 6.3 g/dl (6.3-8.2)
[2019-09-16 11:22] LABS: Vitamin D 25 Hydroxy 43.9 ng/mL (30.0-100.0)
== END ==
PROVIDERS: Visit Provider Nurse Practitioner Family
DX: I10 Essential (primary) hypertension (principal); Z86.2 Personal history of diseases of the blood and blood-forming organs and certain disorders involving the immune mechanism
CPT/HCPCS: 36415; 80053; 82652; 85025

== ENCOUNTER → 2020-03-16 09:32 | Outpatient (CLI) | payer MEDICARE, SELFPAY ==
--- NOTE | 2020-03-16 09:36 | US_ITS ---
PROCEDURE: US EXTREMITY RT LIMITED CLINICAL INDICATION: BAD ODOR OF URIN Soft tissue mass right sacrum, palpable abnormality right sacrum COMPARISON: CT ABDPELWO CT abdomen pelvis wo con from 10/13/2018 FINDINGS: There is an oval somewhat heterogeneous area of slight increased echogenicity in the subcutaneous region in the right sacral area corresponding to the palpable abnormality measuring 3.5 x 1.2 cm and a 2nd area measuring 3.3 x 1 cm consistent with lipomas. 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 Dictated by: Marcus Tellez MD 03/16/2020 16:26 Marcus Tellez MD in [place] 03/16/2020 16:26
== END ==
PROVIDERS: PCP Nurse Practitioner Family; Visit Provider Nurse Practitioner Family
DX: R82.90 Unspecified abnormal findings in urine (principal)
CPT/HCPCS: 76882

== ENCOUNTER → 2020-04-30 13:33 | Outpatient (CLI) | payer MEDICARE, SELFPAY ==
[2020-04-30 15:23] LABS: Blood Urea Nitrogen 9 mg/dl (7-17); Estimated Glomerular Filt Rate 68 ml/min (>60); GFR (African American) 82 ML/MIN (>60)
== END ==
PROVIDERS: Visit Provider Surgery
DX: Z01.818 Encounter for other preprocedural examination (principal); R10.31 Right lower quadrant pain
CPT/HCPCS: 36415; 82565; 84520

== ENCOUNTER → 2020-05-07 10:00 | Outpatient (CLI) | payer MEDICARE, MEDICAID, SELFPAY ==
--- NOTE | 2020-05-07 10:00 | CT_ITS ---
PROCEDURE: CT ABDOMEN PELVIS W CON CLINICAL INDICATION: Rt lower quad pain/ rt sacroiliac pain Right lower quadrant pain for 1 year COMPARISON: CT ABDPELWO CT abdomen pelvis wo con from 10/13/2018 TECHNIQUE: IV Contrast: 75ML Isovue 370 Oral Contrast None Axial images obtained with sagittal and coronal reformats. All CT scans at the facility use one or more dose reduction, viz: automated exposure control, ma/kV adjustment per patient size (including targeted exams where dose is matched to indication, i.e. head), or iterative reconstruction technique. FINDINGS: LOWER THORAX: There is a medium-sized hiatal hernia. ABDOMEN & PELVIS: There has been a prior cholecystectomy. The liver, spleen, adrenal glands, and pancreas have an unremarkable appearance. No renal or ureteral calculi evident. There is a 1.6 cm cyst along the upper pole of the left kidney. No renal or ureteral calculi. No evidence of appendicitis. There is diverticulosis of the sigmoid colon. No evidence of diverticulitis. No intestinal obstruction or free air. Prior hysterectomy. There are mild osteoarthritic changes of the hips and there are degenerative changes of the lumbar spine with multilevel lumbar spondylosis. There is 4 mm anterolisthesis of L4 on L5. IMPRESSION: 1. No acute abdominal or pelvic findings. 2. Hiatal hernia. 3. Colonic diverticulosis without diverticulitis. Dictated by: Marcus Tellez MD 05/08/2020 13:48 Marcus Tellez MD in [place] 05/08/2020 13:48
== END ==
PROVIDERS: PCP Nurse Practitioner Family; Visit Provider Surgery
DX: R10.31 Right lower quadrant pain (principal)
CPT/HCPCS: 74177; Q9967

== ENCOUNTER 2020-05-17 11:42 | Emergency (ER) | payer MEDICARE, SELFPAY ==
[2020-05-17 12:43] VITALS: BP 118/78; PULSE 68; RESP 18; TEMP 36.9; O2SAT 99; BMI 28.5
--- NOTE | 2020-05-17 12:50 | HMH.EDUTC ---
[facility] [place] Disposition Clinical Impression: Exposure to COVID-19 virus Disposition: Home, Self-Care Condition on Discharge: Good Instructions: Preventing the Spread of Coronavirus Discharge Instructions Additional Instructions: *Monitor Temp, Over the counter Motrin or Tylenol as directed/as needed Tylenol every 4 hours and Motrin every 6 hours (as long as your family doctor has told you that you can take it) for fever or pain. and straight to ER if unable to lower temp less than 101.0 after medication given *Warm salt water gargles may help to soothe the throat *Throat Lozenges *Warm fluids like tea with honey may help to soothe the throat *Sleep elevated *Humidifier/Vaporizer Follow up IMMEDIATELY for new or worsening symptoms or no Noticeable improvement over the next 48-72 hours. 911 for difficulty breathing or swallowing You was tested for today for COVID19 your test result should be back in the next 24-48 hours, you may call to the [facility] later today or tomorrow to see if your test results are back and the result [phone] [facility] hours are 9am-9pm You was given a handout with instructions for Self Quarantine and Self isolation for while you wait on test results and what to do if they are positive If you are positive the Health Dept will be contacting you also Referrals: Gina Rios APRN [Primary Care Provider] - As needed Time of Disposition: 12:54 Medical Decision Making - Skip Inquiry Pt receiving controlled substance: No Skip was queried for this patient: No Vital Signs: 05/17/20 12:43 Temperature 98.4 F Temperature Source Oral Pulse Rate [Radial] 68 Respiratory Rate 18 Blood Pressure [Right Arm] 118/78 Blood Pressure Mean [Right Arm] 91 Blood Pressure Source [Right Arm] Automatic Cuff Blood Pressure Position [Right Arm] Sitting 02 Sat by Pulse Oximetry 99 Oxygen Delivery Method Room Air [facility] [place] HPI - General Stated complaint: covid exposure Time Seen by Provider: 05/17/20 12:50 Mode of Arrival: Ambulatory Source of Information: Patient Limitations: No Limitations Description of Symptoms (Recalled from Triage Doc. by RN): covid exposure HEENT Symptoms (Recalled from RN notes): No Resp Symptoms (Recalled from RN notes): No Skin Symptoms (Recalled from RN notes): No MS Symptoms (Recalled from RN notes): No Functional Status (Recalled from RN notes): wnl - History of Present Illness Provider Complaint: Patient states that she was exposed to COVID by her that tested positive yesterday States that she isnt having any symptoms but family doctor recommended that she come in and get checked - Related Data Home Medications Medication Instructions Recorded Confirmed ergocalciferol (vitamin D2) 50 mcg 50,000 unit PO WEEKLY tab 09/16/17 05/11/20 (2,000 unit) tablet fluticasone propionate 230 2 puff INHALATION Q12H 09/16/17 05/11/20 mcg-salmeterol 21 mcg/actuation HFA inhaler lisinopril 20 mg tablet 20 mg PO DAILY tab 09/16/17 05/11/20 meclizine 25 mg tablet 25 mg PO .prn tab 09/16/17 05/11/20 Metoclopramide HCl [Metoclopramide 5 mg PO POSTTR 04/27/18 05/11/20 10mg Tablet] hydrocodone 5 mg-acetaminophen 325 1 tab PO tab 04/30/20 05/11/20 mg tablet prednisone 5 mg tablet 5 mg PO tab 04/30/20 05/11/20 Allergies Allergy/AdvReac Type Severity Reaction Status Date / Time Penicillins Allergy Unknown I-HIVES Verified 05/11/20 10:48 Sulfa (Sulfonamide Allergy Unknown I-HIVES Verified 05/11/20 10:48 Antibiotics) - Worker's Comp Is this a Worker's Comp case?: No H History - Hepatitis A Screen Drug use history?: No High risk sexual behaviors?: No History of sexually transmitted infection?: No Currently employed?: No Childcare worker?: No Do you have indoor plumbing?: Yes Do you have electricity?: Yes Attestation statement:: This patient has been screened for Hepatitis A risk factors. I have reviewed the patient's past medical history: Yes Medical
[2020-05-17 13:06] VITALS: BP 118/78; PULSE 68; RESP 18; TEMP 36.9; O2SAT 99
== END 2020-05-17 13:06 | disposition home or self-care (01) ==
PROVIDERS: Emergency Provider Nurse Practitioner; PCP Nurse Practitioner Family
DX: Z20.828 Contact with and (suspected) exposure to other viral communicable diseases (principal); I10 Essential (primary) hypertension; J44.9 Chronic obstructive pulmonary disease, unspecified; K21.9 Gastro-esophageal reflux disease without esophagitis; Z79.899 Other long term (current) drug therapy
CPT/HCPCS: G0463; 99201; U0003

== ENCOUNTER 2020-05-29 14:22 | Inpatient (IN) | payer MEDICARE, SELFPAY ==
[2020-05-29] VITALS (15 sets, daily range): BP systolic 95–164; BP diastolic 54–87; PULSE 72–121; RESP 18–37; TEMP 36.6–38.2; O2SAT 88–97; BMI 28.1
--- NOTE | 2020-05-29 14:32 | HMH.EDGENADL ---
ED Disposition Clinical Impression: Acute respiratory failure with hypoxia, COVID-19 virus infection, Hypokalemia, Pneumonia due to COVID-19 virus Pulmonary emboli Qualifiers: Pulmonary embolism type: multiple subsegmental (without acute cor pulmonale) Qualified Code(s): I26.94 - Multiple subsegmental pulmonary emboli without acute cor pulmonale Disposition: Admitted As Inpatient Condition on Discharge: Serious Referrals: Jv Reddy MD [Primary Care Provider] - - Critical Care Critical Care Time: Yes Attestation: On 05/29/20, the high probability of a clinically significant, sudden or life threatening deterioration of the following system(s) required my full and direct attention, intervention and personal management. The time I documented below is in addition to time spent performing reported procedures but includes the following listed in this critical care notation. Total Critical Care Time: 40 Vital system(s) involved:: Respiratory Failure My critical care processes included: Assessment & monitoring of V/S, Initial and Re-exams, Data Review/Interpretation, Coordinating Care, Medication Orders and management, Documentation Medical Decision Making - Medical Records Medical records reviewed: Yes: I reviewed the patient's medical records. MR Comment: The patient was seen here in the urgent treatment center on 05/17/2020 and had a Covid test that returned as negative. Her daughter says that she had a rapid test done at PCP's office after that on 05/21/2020 that came back positive. - Skip Inquiry Pt receiving controlled substance: No Vital Signs: 05/29/20 14:23 05/29/20 14:25 05/29/20 15:30 Temperature 100.7 F H Temperature Source Oral Pulse Rate [Radial] 119 H 121 H Respiratory Rate 34 H 21 Blood Pressure [Right Arm] 164/80 H 150/83 H Blood Pressure Mean [Right Arm] 108 105 Blood Pressure Source [Right Arm] Automatic Cuff Blood Pressure Position [Right Arm] Sitting Sitting 02 Sat by Pulse Oximetry 88 L 93 L 91 L Oxygen Delivery Method Room Air Nasal Cannula Nasal Cannula Oxygen Flow Rate (LPM) 3 4 05/29/20 16:00 05/29/20 16:30 05/29/20 17:00 Temperature Temperature Source Pulse Rate [Radial] 110 H 117 H 113 H Respiratory Rate 37 H 28 H 36 H Blood Pressure [Right Arm] 147/81 H 145/83 H 149/81 H Blood Pressure Mean [Right Arm] 103 103 103 Blood Pressure Source [Right Arm] Automatic Cuff Automatic Cuff Automatic Cuff Blood Pressure Position [Right Arm] Sitting Sitting Sitting 02 Sat by Pulse Oximetry 94 L 95 94 L Oxygen Delivery Method Room Air Room Air Nasal Cannula Oxygen Flow Rate (LPM) 4 05/29/20 18:00 05/29/20 18:30 Temperature Temperature Source Pulse Rate [Radial] 99 H 100 H Respiratory Rate Blood Pressure [Right Arm] 141/87 H 123/71 Blood Pressure Mean [Right Arm] 105 88 Blood Pressure Source [Right Arm] Automatic Cuff Automatic Cuff Blood Pressure Position [Right Arm] Sitting Sitting 02 Sat by Pulse Oximetry 94 L 93 L Oxygen Delivery Method Nasal Cannula Nasal Cannula Oxygen Flow Rate (LPM) 4 4 - Lab Data Lab Results 05/29/20 11:45: D-Dimer 2.47 05/29/20 14:45: PT 12.0 H, INR 1.09, APTT 27.0 05/29/20 14:48: WBC 17.6 H, RBC 4.68, Hgb 13.1, Hct 40.5, MCV 86.5, MCH 28.0, MCHC 32.4, RDW 14.2, Plt Count 364, MPV 8.6, Neut % (Auto) 88.1 H, Lymph % (Auto) 6.9 L, [place] % (Auto) 4.6, Eos % (Auto) 0.2, Baso % (Auto) 0.2, Neut # (Auto) 15.5 H, Lymph # (Auto) 1.2, [place] # (Auto) 0.8, Eos # (Auto) 0.0, Baso # (Auto) 0.0, Total Counted 100, Neutrophils % (Manual) 94 H, Lymphocytes % (Manual) 4 L, Monocytes % (Manual) 2, Platelet Estimate Normal, RBC Morphology Normal 05/29/20 14:48: Sodium 133 L, Potassium 2.9 L*, Chloride 97 L, Carbon Dioxide 27, Anion Gap 11.9, BUN 17, Creatinine 0.80, Estimated Creat Clear 47, Estimated GFR 68, Est GFR ( Amer) 82, Glucose 121 H, Calcium 8.6, Total Bilirubin 1.1, AST 30, ALT 24, Alkaline Phosphatase 91, Troponin I 0.06 H, Total Protein 6.9
--- NOTE | 2020-05-29 14:36 | ECG_ITS ---
APPROVED REPORT Exam: Resting ECG HR:112 bpm ECG Measurements Heart Rate 112 AXES [place] 126 P 46 QRSd 82 QRS -1 QT 346 T 78 QTc 472 Conclusion Sinus tachycardia with premature atrial complexes Nonspecific ST and T wave abnormality Abnormal ECG Electronically signed by : Amauri Lockwood, 05/29/2020 19:04:26
--- NOTE | 2020-05-29 15:06 | XR_ITS ---
PROCEDURE: XR CHEST PORTABLE CLINICAL HISTORY: soa, cough, covid-19 COMPARISON: CR CXR CHEST(2 VIEWS-NOT PORTABLE) from 07/27/2013 CR CXR CHEST(2 VIEWS-NOT PORTABLE) from 01/22/[address] [facility] [address] CHEST W/O CONTRAST from 03/23/2017 DX CXR CHEST(2 VIEWS-NOT PORTABLE) from 05/22/2017 FINDINGS: The cardiomediastinal silhouette and pulmonary vascularity are within normal limits. Areas of infiltrate. The left lung is clear. Postsurgical changes right shoulder. IMPRESSION: Patchy areas of atelectasis or infiltrate in the right upper and right lower lobe. Dictated by: Marcus Tellez MD 05/29/2020 15:56 Marcus Tellez MD in [place] 05/29/2020 15:56
[2020-05-29 15:11] LABS: Basophils % 0.2 % (0.1-2.0); Eosinophils % 0.2 % (0.1-12.0); Hematocrit 40.5 % (37.0-47.0); Hemoglobin 13.1 g/dL (12.2-16.2); Lymphocytes # 1.2 K/mm3 (0.7-4.5); Lymphocytes % 6.9 % (10-50); Mean Corpuscular HGB Conc 32.4 g/dL (31.8-35.4); Mean Corpuscular Volume 86.5 fl (81-99); Mean Platelet Volume 8.6 fl (7.4-10.4); Monocytes # 0.8 K/mm3 (0.1-1.0); Monocytes % 4.6 % (1.7-9.3); Neutrophils # 15.5 K/mm3 (1.8-7.8); Neutrophils % 88.1 % (37.0-80.0); Platelet Count 364 K/mm3 (142-424); Red Blood Count 4.68 M/mm3 (4.20-5.40); Red Cell Distribution Width 14.2 % (11.5-17.5); White Blood Count 17.6 K/mm3 (4.8-10.8)
[2020-05-29 15:14] LABS: Chloride 97 mmol/L (98-107); Sodium 133 mmol/L (136-145)
[2020-05-29 15:17] LABS: Alanine Aminotransferase 24 U/L (12-78); Albumin Level 3.9 g/dl (3.5-5.0); Albumin/Globulin Ratio 1.3 (1.1-1.8); Alkaline Phosphatase 91 U/L (38-126); Anion Gap 11.9 mEq/L (5-15); Aspartate Amino Transferase 30 U/L (14-36); Bilirubin,Total 1.1 mg/dl (0.2-1.3); Blood Urea Nitrogen 17 mg/dl (7-17); Calcium 8.6 mg/dl (8.4-10.2); Carbon Dioxide 27 mmol/L (22.0-30.0); Creatinine Clearance Estimated 47 mL/min (50-200); Estimated Glomerular Filt Rate 68 ml/min (>60); GFR (African American) 82 ML/MIN (>60); Glucose 121 mg/dl (74-100); Total Protein,Serum 6.9 g/dl (6.3-8.2)
--- NOTE | 2020-05-29 15:19 | PC.NURSE ---
Radiology at bedside
--- NOTE | 2020-05-29 15:22 | PC.NURSE ---
Critical lab value: Potassium is 2.9 , MD notified.
[2020-05-29 15:25] LABS: Potassium 2.9 mmoL/L (3.5-5.1)
--- NOTE | 2020-05-29 15:28 | CT_ITS ---
PROCEDURE: CT ANGIO CHEST CLINCIAL INDICATION: soa, covid-19, h/o PE Shortness of air, history of pulmonary embolus, cough, chest pain COMPARISON: CR XR CHEST PORTABLE from 05/29/2020 TECHNIQUE: IV Contrast: 70ML Isovue 370 Axial images obtained with sagittal and coronal reformats. All CT scans at the facility use one or more dose reduction, viz: automated exposure control, ma/kV adjustment per patient size (including targeted exams where dose is matched to indication, i.e. head), or iterative reconstruction technique. FINDINGS: There is no evidence of aortic aneurysm or dissection. There is tortuosity of the descending thoracic aorta. Scattered small bilateral pulmonary emboli noted in the segmental and subsegmental branches of both upper and lower lobes. No large pulmonary embolus. No central embolus and no saddle embolus. There are scattered patchy multi segmental areas of ground-glass attenuation mostly peripheral in nature. This may be seen with Covid19 pneumonia. No effusions are evident. There are changes of COPD in there are scattered areas of atelectasis or fibrotic change. There is some more dense consolidation in the right upper lobe posteriorly which may contain a small central cavitation. There is a calcified granuloma in the left upper lobe. There are degenerative changes in the thoracic spine. There is a moderate-sized hiatal hernia. No evidence of right ventricular strain IMPRESSION: 1. Scattered small segmental and subsegmental pulmonary emboli in both upper and lower lobes. 2. Scattered bilateral multi segmental areas of ground-glass attenuation suspicious for Covid19 pneumonia as described above. Small area of cavitation noted in the right upper lobe posteriorly. 3. Moderate-sized hiatal hernia Dictated by: Marcus Tellez MD 05/29/2020 16:51 Marcus Tellez MD in [place] 05/29/2020 16:51
[2020-05-29 15:29] LABS: Troponin I 0.06 ng/ml (0.00-0.034)
[2020-05-29 15:32] LABS: MANUAL DIFFERENTIAL MANUAL DIFFERENTIAL (MANUAL DIFF)
[2020-05-29 15:42] LABS: Coronavirus 19 IgG Antibody Negative (Negative); Coronavirus 19 IgM Antibody Negative (Negative)
--- NOTE | 2020-05-29 16:01 | PC.NURSE ---
Patient going to Radiology for CT
[2020-05-29 16:08] LABS: Lymphocytes % 4 % (10-50); Monocytes % 2 % (2-9); Neutrophils % 94 % (42-76); Total Cells Counted 100
[2020-05-29 16:09] LABS: Platelet Estimate Normal; RBC Morphology Normal
--- NOTE | 2020-05-29 16:28 | PC.NURSE ---
Pt returning from radiology
[2020-05-29 16:55] LABS: Procalcitonin 0.198 ng/mL (0.0-2.0)
--- NOTE | 2020-05-29 17:04 | PC.NURSE ---
speaking with Doretha
[2020-05-29 17:13] LABS: D-Dimer 2.47 ug/mL (0.15-8.0)
[2020-05-29 17:14] LABS: Microscopic, Urine URINE MICROSCOPIC (MICROSCOPIC)
[2020-05-29 17:22] LABS: Appearance,Urine CLEAR (Clear); Bilirubin,Urine Negative (Negative); Blood, Urine 1+ (Negative); Color,Urine YELLOW (Yellow); Glucose,Urine (UA) Negative (Negative); Ketones,Urine Negative (Negative); Leukocyte Esterase,Urine Negative (Negative); Nitrate,Urine Negative (Negative); Protein,Urine TRACE (Negative); Specific Gravity, Urine 1.015 (1.005-1.030)
[2020-05-29 17:34] LABS: INR 1.09 (0.9-1.1)
--- NOTE | 2020-05-29 17:36 | PC.NURSE ---
PT AND FAMILY UPDATED ON PLAN OF CARE
--- NOTE | 2020-05-29 18:15 | PC.NURSE ---
PT AND FAMILY UPDATED ON PLAN OF CARE
[2020-05-29 19:02] LABS: Troponin I 0.07 ng/ml (0.00-0.034)
--- NOTE | 2020-05-29 19:22 | PC.NURSE ---
received report from [facility]. waiting on pts COVID swabs for admission.
--- NOTE | 2020-05-29 19:53 | PC.NURSE ---
spoke with lab to get COVID swab status. lab stated swab had about 8 minutes left
[2020-05-29 20:15] LABS: Adenovirus,PCR Not Detected (NotDetected); Bordetella Pertussis Not Detected (NotDetected); Chlamydophila Pneumoniae, PCR Not Detected (NotDetected); Coronavirus 229E Not Detected (NotDetected); Coronavirus NL63 Not Detected (NotDetected); Coronavirus OC43 Not Detected (NotDetected); Coronovirus HKU1,PCR Not Detected (NotDetected); Human Metapneumovirus Not Detected (NotDetected); Influenza A, PCR Not Detected (NotDetected); Influenza AH1, 2009 Not Detected (NotDetected); Influenza AH1, PCR Not Detected (NotDetected); Influenza AH3,PCR Not Detected (NotDetected); Influenza B, PCR Not Detected (NotDetected); Mycoplasma Pneumoniae, PCR Not Detected (NotDetected); Parainfluenza 1, PCR Not Detected (NotDetected); Parainfluenza 2, PCR Not Detected (NotDetected); Parainfluenza 3, PCR Not Detected (NotDetected); Parainfluenza 4, PCR Not Detected (NotDetected); Respiratory Syncytial Virus Not Detected (NotDetected); Rhinovirus/Enterovirus Not Detected (NotDetected)
[2020-05-29 20:18] LABS: Coronavirus 19, PCR Detected (NotDetected)
--- NOTE | 2020-05-29 20:30 | PC.NURSE ---
+ COVID results came reported at 2018
[2020-05-29 22:04] LABS: Troponin I 0.05 ng/ml (0.00-0.034)
[2020-05-30] VITALS (17 sets, daily range): BP systolic 115–164; BP diastolic 64–95; PULSE 63–92; RESP 17–26; TEMP 36.6–37.4; O2SAT 90–97; BMI 28.1
--- NOTE | 2020-05-30 01:21 | PC.NURSE ---
She is currently in contact and airborne precautions. Continues on 4LPM n/c. She requested her 's jacket and shoes and that the rest of his belongings be thrown away. She stated she does not want to take all of those germs home. She is soft-spoken. NSR on telemetry with an occasional PACs.
[2020-05-30 06:16] LABS: Chloride 105 mmol/L (98-107)
[2020-05-30 06:17] LABS: Sodium 137 mmol/L (136-145)
[2020-05-30 06:19] LABS: Blood Urea Nitrogen 19 mg/dl (7-17); Creatinine Clearance Estimated 47 mL/min (50-200); Estimated Glomerular Filt Rate 80 ml/min (>60); GFR (African American) 96 ML/MIN (>60)
[2020-05-30 06:20] LABS: Calcium 8.4 mg/dl (8.4-10.2); Carbon Dioxide 27 mmol/L (22.0-30.0); Glucose 142 mg/dl (74-100)
--- NOTE | 2020-05-30 07:11 | HMH.PHAVTE ---
[facility] Pharmacy VTE Monitoring - Patient Demographics Admission date: 05/29/20 Report Date: 05/30/20 Time: 07:11 Allergies/Adverse Reactions: Patient Allergies Penicillins Allergy (Unknown, Verified 05/29/20 21:23) I-HIVES Sulfa (Sulfonamide Antibiotics) Allergy (Unknown, Verified 05/29/20 21:23) I-HIVES Height: 1.6 m Weight: 72.121 kg Patient Problems: Current Active Problems Acute respiratory failure with hypoxia (Acute) COVID-19 virus infection (Acute) Hypokalemia (Acute) Pulmonary emboli (Acute) Pneumonia due to COVID-19 virus (Acute) - VTE Risk Labs: VTE Related Lab Results Hgb 13.1 g/dL (12.2-16.2) 05/29/20 14:48 Hct 40.5 % (37.0-47.0) 05/29/20 14:48 Plt Count 364 K/mm3 (142-424) 05/29/20 14:48 PT 12.0 seconds (9.4-11.8) H 05/29/20 14:45 INR 1.09 (0.9-1.1) 05/29/20 14:45 APTT 27.0 seconds (23.6-34.0) 05/29/20 14:45 BUN 19 mg/dl (7-17) H 05/30/20 05:55 Creatinine 0.70 mg/dl (0.52-1.04) 05/30/20 05:55 Estimated Creat Clear 47 mL/min (50-200) 05/30/20 05:55 VTE Score: 2 Clinical Trial Participant: No - Prophylaxis VTE Prophylaxis Ordered?: Yes Types of VTE Prophylaxis: TEDS Knee High, Pharmacological Location of Applied Device: Bilateral Lower Extremeties Pharmacologic Type: Enoxaparin - VTE Diagnosis Confirmed Treatment or plan recommended: Add Enoxaparin
--- NOTE | 2020-05-30 07:38 | HMH.PHAINT ---
Medication reconciliation completed using pharmacy claims data.
--- NOTE | 2020-05-30 08:25 | HMH.HP ---
*Admission Date: 05/29/20 *Chief complaint: Dyspnea/fatigue *History of present illness: 84-year-old white female with history of COPD and history of recurrent pulmonary embolism diagnosed by Dr. Mcdowell from pulmonology service several years ago who has only been on aspirin therapy recently because of fall risk, who has been living at home with her who has been diagnosed with COVID-19 pneumonitis and went into significant respiratory failure and has been intubated for the past week and last night was transferred to [facility]. I saw her in the office 5 days ago, she had similar symptoms, rapid antigen testing was positive for Covid 19, and we elected to do supportive care as her oxygen saturations were normal as were her vital signs. Unfortunately over the past 24 hours she has become progressively worse, significant dyspnea and fatigue, came to the emergency department, hypoxic, was found on CTA scanning to have recurrent small pulmonary embolism and was admitted to hospital. [facility] History I have reviewed the patient's past medical history: Yes Medical History: Reports:: Asthma, Deep Vein Thrombosis, Depression, Gastroesophageal Reflux Disease(GERD), Hiatal Hernia, Hypertension, Lung Disease, Pulmonary Embolism Denies:: Cancer, Diabetes Mellitus Type 1, Diabetes Mellitus Type 2, Internal Pacemaker, MRSA, Seizures *Have you ever received a pneumonia vaccine?: Yes *Have you received a flu vaccine this season?: Yes Other Medical History: Reports: Anemia, Arthritis, Cataracts, Thyroid Disease, Other. Denies: Blood Transfusion Reaction Laterality Cases: Right: Arthroscopy Shoulder Other Surgeries: Yes: Cholecystectomy, Colonoscopy, , Hysterectomy-Total, Thyroidectomy, Other. No: Pacemaker Amputation: No Fractures: Yes (RIGHT ANKLE) - *Social History Last grade of school completed: 7th or 8th Smoking Status: Former smoker Tobacco Type: cigarettes # Packs/Day (cigarettes): 1 #Yrs smoked (if former smoker): 3 Smoking End Date: 60 years ago Alcohol Intake: never Substance Use Type: denies use *Occupational Status:: retired Housing: house Household Members: spouse *Travel in the last 8 weeks: None - Psychiatric History Pschychiatric History:: Reports:: Depression Family Hx:: Cancer, Heart Attack, Hyperlipidemia, Hypertension Review of Systems - Review of Systems Review of systems:: pertinent systems reviewed and negative unless documented below - Constitutional Reports anorexia, Reports fatigue, Reports fever(s) - Eyes Denies blind spots, Denies bulging eyes - ENT Reports poor balance, Reports dizziness - *Cardiovascular Denies chest pain - *Respiratory Reports chest congestion, Reports cough, Reports shortness of breath, Denies change in phlegm color - *Gastrointestinal Denies abdominal pain - *Neurologic Reports headache(s) Meds Home Medications Medication Instructions Recorded Confirmed Type meclizine 25 mg tablet 25 mg PO DAILYP PRN tab 09/16/17 05/29/20 History hydrocodone 5 mg-acetaminophen 325 1 tab PO BID tab 04/30/20 05/29/20 History mg tablet prednisone 5 mg tablet 5 mg PO DAILY tab 04/30/20 05/29/20 History Metoclopramide HCl [Metoclopramide 5 mg PO DAILY 05/30/20 05/30/20 History 5mg Tab] Pantoprazole Sodium 40 mg PO DAILY 05/30/20 05/30/20 History lisinopriL [Lisinopril 10mg Tab] 10 mg PO DAILY 05/30/20 05/30/20 History Allergies Allergy/AdvReac Type Severity Reaction Status Date / Time Penicillins Allergy Unknown I-HIVES Verified 05/29/20 21:23 Sulfa (Sulfonamide Allergy Unknown I-HIVES Verified 05/29/20 21:23 Antibiotics) Exam Vital signs and Labs for Last 24 Hours: Temp Pulse Resp BP Pulse Ox 97.9 F 66 18 161/85 H 90 L 05/30/20 06:00 05/30/20 06:04 05/30/20 06:00 05/30/20 06:04 05/30/20 06:35 Laboratory Results - last 24 hr 05/29/20 11:45: D-Dimer 2.47 05/29/20 14:45: PT 12.0 H, INR 1.09, APTT 27.0 05/29/20
--- NOTE | 2020-05-30 16:17 | PC.NURSE ---
Remains on 4 L O2 per nasal cannula, tolerating well. Pt does have a productive cough, sputum specimen was sent to lab this shift. Lungs coarse throughout all kim. Pt does c/o a sore throat. Abdomen soft, non-tender w/ active BS. PT had a small BM this shift. Skin intact. No edema present. Pt is independently mobile. Transfer from bed to BSC w/o safety concerns, tolerating activity well. Voiding w/o difficulty. Has ate most of her trays this shift. Has been in contact w/ family and staff @ this shift about her husbands current condition. No needs voiced this shift. Call william w/in reach.
[2020-05-31] VITALS (9 sets, daily range): BP systolic 121–153; BP diastolic 71–75; PULSE 58–94; RESP 18–24; TEMP 36.6–37; O2SAT 91–97; BMI 27.8
--- NOTE | 2020-05-31 03:34 | PC.NURSE ---
Pt has rested well this shift. Pt is A&Ox4. Lung sounds have coarse crackles heard t/o with expiratory wheezing auscultated. Pt continues to be on 4L NC with favorable results. o2 sats maintain between 92-96%. No cough noted this shift. Bowel sounds are active in all 4 quads. Pt continues to take self to BSC independently w/o complaining of SOA or weakness. No other complaints or acute changes at this time. Will continue to monitor.
[2020-05-31 05:52] LABS: Chloride 108 mmol/L (98-107); Potassium 4.3 mmoL/L (3.5-5.1); Sodium 136 mmol/L (136-145)
[2020-05-31 05:54] LABS: Alanine Aminotransferase 15 U/L (12-78); Aspartate Amino Transferase 25 U/L (14-36); Blood Urea Nitrogen 20 mg/dl (7-17); Creatinine Clearance Estimated 46 mL/min (50-200); Estimated Glomerular Filt Rate 80 ml/min (>60); GFR (African American) 96 ML/MIN (>60)
[2020-05-31 05:55] LABS: Albumin Level 2.7 g/dl (3.5-5.0); Alkaline Phosphatase 58 U/L (38-126); Anion Gap 7.3 mEq/L (5-15); Bilirubin,Total 0.5 mg/dl (0.2-1.3); Carbon Dioxide 25 mmol/L (22.0-30.0); Globulin 2.7 g/dL (1.3-3.2); Glucose 104 mg/dl (74-100); Total Protein,Serum 5.4 g/dl (6.3-8.2)
--- NOTE | 2020-05-31 16:12 | PC.NURSE ---
Currently on 3 L O2 per nasal cannula. When ambulating and transferring back and forth to chair from bed pt will desat to 84-86%, but will recover in 5-10 minutes. Lungs remain coarse throughout. Productive cough noted, pt's sputum is thick green and blood tinged. Noted by MD this shift that pt has developed thrush. Oral care provided as well as cleaning her dentures. Pt was started on nystatin suspension. IS has been encourage throughout day. IS @ best =1250. Abdomen is soft,non-tender w/ active BS in all quads. No Bm this shift. Voiding per BSC independently. Skin intact w/ scattered bruising to abdomen from lovenox injections. No edema noted. Pt has been up to chair for meals. Appetite remains poor. Pt has been restless and anxious some of the shift d/t pt's family calling repeatedly throughout shift. Nursing staff have tried to promote rest by turning off lights, adjusting in bed and pulling curtains to the best of our abilities. Staff have spoke w/ family members and let them know that pt is trying to rest, but have continued to call pt's cellphone and room phone. Pt is currently lying in bed watching tv. No needs voiced. Call william w/in reach.
--- NOTE | 2020-05-31 23:19 | HMH.ACPN2 ---
Internal Medicine - PN: Subj *Date: 05/31/20 *Time: 13:30 Interval history: 84-year-old female with COVID-19 pneumonia. Increased oxygen requirement this morning to 8 L. Improved after receiving albuterol nebulizer. Has been producing some thick darkly colored sputum overnight. Afebrile for the past 24 hours. Denies nausea or vomiting. Does complain of being significantly weak however. Also complaining of some oral pain, after removing her dentures is noted to have white plaques on the roof of her mouth. Denies chest pain, confusion. Exam Vital signs and Labs for Last 24 Hours: Temp Pulse Resp BP Pulse Ox 98.6 F 83 22 153/72 H 91 L 05/31/20 20:00 05/31/20 20:00 05/31/20 20:00 05/31/20 20:00 05/31/20 20:00 Laboratory Results - last 24 hr 05/31/20 04:45: Sodium 136, Potassium 4.3, Chloride 108 H, Carbon Dioxide 25, Anion Gap 7.3, BUN 20 H, Creatinine 0.70, Estimated Creat Clear 46, Estimated GFR 80, Est GFR ( Amer) 96, Glucose 104 H D, Calcium 8.0 L, Total Bilirubin 0.5, AST 25, ALT 15 D, Alkaline Phosphatase 58, Total Protein 5.4 L, Albumin 2.7 L, Globulin 2.7, Albumin/Globulin Ratio 1.0 L I & O for Last 24 hours: Intake & Output 05/28/20 05/29/20 05/30/20 05/31/20 23:59 23:59 23:59 23:59 Intake Total 2345 / 2345 2288 / 2288 Output Total 750 / 750 2200 / 2200 Balance 1595 / 1595 88 / 88 Weight 72.121 kg 72 kg 71.441 kg Microbiology Reports for the Last 24 Hours: Microbiology 05/29/20 14:48 Blood Blood Culture - Preliminary NO GROWTH AFTER 48 HOURS 05/29/20 14:48 Blood Blood Culture - Preliminary NO GROWTH AFTER 48 HOURS 05/30/20 09:23 Sputum - Expectorated Sputum Gram Stain - Final 05/30/20 09:23 Sputum - Expectorated Sputum Sputum Culture - Preliminary Narrative: - Constitutional mild distress Comments: Appears weak and tired. Breathing easily. - *Routine HEENT Exam Head: Present: normocephalic Eye: Present: EOMI, PERRL ENT: Present: mucous membranes moist; thrush on hard palate, significant white plaque along gum appreciable after removing her upper dentures - *Routine Neck Exam Present: supple. Absent: lymphadenopathy - *Routine Respiratory Exam Present: CTA bilaterally, no crackle, no wheeze - *Routine Cardiovascular Exam Present: RRR - *Routine Abdominal Exam Present: soft, normoactive bowel sounds. Absent: tenderness - *Routine Extremities Exam Absent: cyanosis, clubbing, edema - *Routine Skin Exam Present: warm. Absent: rash - *Routine Neurological Exam Present: alert, oriented X3 Assessment and Plan (1) Acute respiratory failure with hypoxia Status: Acute Category: Medical Code(s): J96.01 - Acute respiratory failure with hypoxia (2) COVID-19 virus infection Status: Acute Category: Medical Code(s): U07.1 - COVID-19 (3) Pulmonary emboli Status: Acute Qualifiers: Pulmonary embolism type: multiple subsegmental (without acute cor pulmonale) Qualified Code(s): I26.94 - Multiple subsegmental pulmonary emboli without acute cor pulmonale Category: Medical Code(s): I26.99 - Other pulmonary embolism without acute cor pulmonale (4) Thrush Status: Acute Category: Medical Code(s): B37.0 - Candidal stomatitis Initiate nystatin swish and swallow. - Assessment and plan all Dx Assessment and Plan for all problems:: 84-year-old female with acute hypoxemic respiratory failure secondary to COVID-19 pneumonia. Noted to have multiple subsegmental PEs on presentation as well. Admitted to our isolation unit for further management of her respiratory failure and thromboembolic events. - Slight increase in oxygen requirement overnight, however is improved during the day with breathing treatments. - Continue nasal cannula oxygen with goal saturation greater 90% -Continue Lovenox for treatment of PEs. Continue maintenance IV fluids. Patient eati
[2020-06-01] VITALS (9 sets, daily range): BP systolic 132–164; BP diastolic 68–98; PULSE 60–93; RESP 16–21; TEMP 36.7–37.3; O2SAT 90–97; BMI 30.4
--- NOTE | 2020-06-01 04:52 | PC.NURSE ---
While at rest, pt. o2 sat 92-97% on 3l nc; with movement pt. sat 77-80% on 3l nc and recovers slowly. At 0430 pt. transferred to [facility], when back in bed pt. o2 sat sustained at 83-86% on 3.5l nc; increased o2 to 4.5l nc at this time with o2 sat 88-90%, pt. is currently eating a pudding. SOA increases with movement and a nonproductive intermittent cough is noted. Pt. has not c/o n/v/d, dizziness or pain t/o this shift.
[2020-06-01 06:16] LABS: Chloride 107 mmol/L (98-107)
[2020-06-01 06:17] LABS: Potassium 4.2 mmoL/L (3.5-5.1); Sodium 135 mmol/L (136-145)
[2020-06-01 06:19] LABS: Blood Urea Nitrogen 21 mg/dl (7-17); Creatinine Clearance Estimated 46 mL/min (50-200); Estimated Glomerular Filt Rate 95 ml/min (>60); GFR (African American) 115 ML/MIN (>60)
[2020-06-01 06:20] LABS: Alanine Aminotransferase 19 U/L (12-78); Albumin Level 2.7 g/dl (3.5-5.0); Alkaline Phosphatase 44 U/L (38-126); Anion Gap 7.2 mEq/L (5-15); Aspartate Amino Transferase 35 U/L (14-36); Bilirubin,Total 0.6 mg/dl (0.2-1.3); Calcium 8.1 mg/dl (8.4-10.2); Carbon Dioxide 25 mmol/L (22.0-30.0); Globulin 2.8 g/dL (1.3-3.2); Glucose 102 mg/dl (74-100); Total Protein,Serum 5.5 g/dl (6.3-8.2)
[2020-06-01 06:27] LABS: Basophils % 0.1 % (0.1-2.0); Eosinophils % 0.2 % (0.1-12.0); Hematocrit 30.8 % (37.0-47.0); Lymphocytes # 0.8 K/mm3 (0.7-4.5); Lymphocytes % 7.3 % (10-50); Mean Corpuscular HGB Conc 32.3 g/dL (31.8-35.4); Mean Corpuscular Hemoglobin 28.9 pg (27.0-31.2); Mean Corpuscular Volume 89.5 fl (81-99); Mean Platelet Volume 8.8 fl (7.4-10.4); Monocytes # 0.6 K/mm3 (0.1-1.0); Monocytes % 5.5 % (1.7-9.3); Neutrophils # 9.3 K/mm3 (1.8-7.8); Neutrophils % 86.9 % (37.0-80.0); Platelet Count 321 K/mm3 (142-424); Red Blood Count 3.44 M/mm3 (4.20-5.40); Red Cell Distribution Width 14.4 % (11.5-17.5); White Blood Count 10.7 K/mm3 (4.8-10.8)
--- NOTE | 2020-06-01 06:34 | HMH.ACPN2 ---
Internal Medicine - PN: Subj *Date: 06/01/20 *Time: 12:05 Interval history: 84-year-old with Covid pneumonia. Overall did well overnight with essentially stable oxygen requirement. Has significant dyspnea and desaturation with exertion but is otherwise comfortable at rest. No fever in over 24 hours. Hemodynamically stable. Reviewed labs this morning, no significant abnormalities. Patient continues to complain of fatigue, shortness of breath, denies chest pain, nausea, vomiting. Poor appetite but is eating some of her trays Exam Vital signs and Labs for Last 24 Hours: Temp Pulse Resp BP Pulse Ox 98.6 F 60 21 136/73 95 06/01/20 04:00 06/01/20 04:00 06/01/20 04:00 06/01/20 04:00 06/01/20 06:12 I & O for Last 24 hours: Intake & Output 05/29/20 05/30/20 05/31/20 06/01/20 23:59 23:59 23:59 23:59 Intake Total 2345 / 2345 2288 / 2528 240 / 240 Output Total 750 / 750 2200 / 2600 1000 / 1000 Balance 1595 / 1595 88 / -72 -760 / -760 Weight 72.121 kg 72 kg 71.441 kg 78.018 kg Microbiology Reports for the Last 24 Hours: Microbiology 05/29/20 14:48 Blood Blood Culture - Preliminary NO GROWTH AFTER 48 HOURS 05/29/20 14:48 Blood Blood Culture - Preliminary NO GROWTH AFTER 48 HOURS 05/30/20 09:23 Sputum - Expectorated Sputum Gram Stain - Final 05/30/20 09:23 Sputum - Expectorated Sputum Sputum Culture - Preliminary Narrative: - Constitutional mild distress Comments: Appears weak and tired. Breathing easily. - *Routine HEENT Exam Head: Present: normocephalic Eye: Present: EOMI, PERRL ENT: Present: mucous membranes moist; thrush on hard palate, significant white plaque along gum appreciable after removing her upper dentures - *Routine Neck Exam Present: supple. Absent: lymphadenopathy - *Routine Respiratory Exam Present: CTA bilaterally, no crackle, no wheeze - *Routine Cardiovascular Exam Present: RRR - *Routine Abdominal Exam Present: soft, normoactive bowel sounds. Absent: tenderness - *Routine Extremities Exam Absent: cyanosis, clubbing, edema - *Routine Skin Exam Present: warm. Absent: rash - *Routine Neurological Exam Present: alert, oriented X3 Assessment and Plan (1) Acute respiratory failure with hypoxia Status: Acute Category: Medical Code(s): J96.01 - Acute respiratory failure with hypoxia (2) COVID-19 virus infection Status: Acute Category: Medical Code(s): U07.1 - COVID-19 (3) Pulmonary emboli Status: Acute Qualifiers: Pulmonary embolism type: multiple subsegmental (without acute cor pulmonale) Qualified Code(s): I26.94 - Multiple subsegmental pulmonary emboli without acute cor pulmonale Category: Medical Code(s): I26.99 - Other pulmonary embolism without acute cor pulmonale (4) Thrush Status: Acute Category: Medical Code(s): B37.0 - Candidal stomatitis (5) Obesity, Class I, BMI 30-34.9 Status: Chronic Category: Medical Code(s): E66.9 - Obesity, unspecified Complicates all aspects of her care - Assessment and plan all Dx Assessment and Plan for all problems:: 84-year-old female with acute hypoxemic respiratory failure secondary to COVID-19 pneumonia. Noted to have multiple subsegmental PEs on presentation as well. Admitted to our isolation unit for further management of her respiratory failure and thromboembolic events. -Oxygen requirement stable at this time on 4 L nasal cannula oxygen. -Continue breathing treatments as ordered - Continue nasal cannula oxygen with goal saturation greater 88% - Continue Lovenox for treatment of PEs. Continue maintenance IV fluids. Patient eating small portions of her trays, continue protein supplementation with meals. -Continue COVID-19 protocol including vitamins, remdesivir, dexamethasone. -Continue Levaquin 750 mg for coverage of pneumonia given thick dark sputum -Continues to require inpatient m
[2020-06-01 06:36] LABS: MANUAL DIFFERENTIAL MANUAL DIFFERENTIAL (MANUAL DIFF)
[2020-06-01 06:52] LABS: Magnesium 1.8 mg/dl (1.6-2.3)
--- NOTE | 2020-06-01 06:53 | PC.NURSE ---
Pt. has c/o nausea (see md notification). Titrated o2 to 3.5 L nc at this time with o2 sat 90-94%
[2020-06-01 07:39] LABS: Lymphocytes % 5 % (10-50); Monocytes % 5 % (2-9); Neutrophils % 90 % (42-76); Total Cells Counted 100
[2020-06-01 07:41] LABS: Platelet Estimate Normal; RBC Morphology Normal
--- NOTE | 2020-06-01 12:30 | HMH.PTEV ---
Physical Therapy Evaluation Rehab PT IP Evaluation Start: 06/01/20 09:19 Freq: ONCE Status: Active Protocol: Document 06/01/20 12:27 PHORPAT (Rec: 06/01/20 12:30 PHORNE [id number]) Subjective/History History History 84 yowf adm to [facility] with COVID- 19, PE, and PNA. She reports being independent with all mobility at home with cane or walker prior to adm. Subjective Subjective Pt reports no new c/o this am, feels less weak than yesterday. Rehab PT IP Eval Objective Appearance Patient Behavior Appropriate Patient Orientation Person,Place,Time Difficulty following instructions none Speech Pattern Clear Ambulation Patient Able to Ambulate Yes Ambulation Observation IP General Gait Pattern Observation Antalgic Gait Ambulation Distance (feet) 10 Ambulation Assistive Device None Ambulation Ability Supervision/Stand by Balance Ability to Arise Able, uses arms to help Sitting Balance Steady, safe Standing Balance Narrow stance w/o support Dynamic Sitting Balance Ability Good Dynamic Standing Balance Ability Fair Transfers Bed Transfer Ability Independent Chair Transfer Ability Supervision/Stand by Sit to Stand Bed Transfer Ability Supervision/Stand by Sit to Stand Chair Transfer Ability Supervision/Stand by ROM All Extremities PT ROM Status WFL MMT All Extremities PT MMT WFL Rehab PT IP prob,goals,plan Problems Date of Evaluation: 06/01/20 Discharge Plan PT Discharge Plan Pt is independent with all mobility at thie time and only limited physically by O2 requirements with exertion. She is appropriate to return home once medically stable. G -code Required No Eval Complexity Eval Charge Codes 55726 - High Complexity PHYSICIAN CERTIFICATION: I certify the specified therapy services for Yudith Arriaga are required, authorized, and reviewed every 30 days.
--- NOTE | 2020-06-01 13:06 | DIET.NUTRFU ---
PO intakes 30%, pt with nausea today, restlessness at times. Good acceptance protein supplements TID. Pt may have any additional snacks/supplements by request/RN offer at any time.
--- NOTE | 2020-06-01 17:50 | PC.NURSE ---
Patient is sitting in chair in room. Neurologically alert and oriented x 4. Pupils are equal and reactive. Pulmonary patient is on 2l nc. Incentive spirometer in patients room, education given and encouraged patient to use IS 10 times an hour. GI patients appetite is diminished, refused dinner tray and lunch, requested pimento cheese and pudding which patient has eaten. No nausea, vomiting or diarrhea. patient has had roughly 600ml of clear yellow urine in bedside commode. Patient is up ad raina, ambulates well in room. Patient only has one IV now, which is infusing fine. Patient is content with no concerns or complaints.
[2020-06-02] VITALS (11 sets, daily range): BP systolic 143–160; BP diastolic 70–84; PULSE 70–96; RESP 18–24; TEMP 36.6–37.2; O2SAT 90–96; BMI 30.1
--- NOTE | 2020-06-02 03:54 | PC.NURSE ---
Pt. o2 sat at rest is 90-94% on 2l nc. With movement pt. o2 sat 83-88% on 2l nc; during ambulation o2 is increased to 4.5l, pt.'s recovery time to >88% has improved compared to last night. Pt. currently on 2L nc with o2 sat 90%. Pt. is more talkative tonight and expresses the desire to go home. Some SOA reported at rest and is increased with movement or conversation.
--- NOTE | 2020-06-02 06:48 | PC.NURSE ---
Attempted several times to obtain labs, unable to obtain blood sample for lab. Contacted lab at [phone] to notify dept of this; stated they would send someone from the department to obtain labs.
--- NOTE | 2020-06-02 08:02 | HMH.ACPN2 ---
Internal Medicine - PN: Subj *Date: 06/02/20 *Time: 08:02 Interval history: 84-year-old female with COVID-19 pneumonia, acute hypoxemic respiratory failure. Doing better over the past 24 hours. Tolerating weaning of oxygen down to 2 L and maintaining saturations in the low 90s. Today is day 4 of 5 of room does appear. Tolerating fair p.o. intake. Physical therapy saw her yesterday and feels that she is appropriate to go home as she is at her baseline level of function. Weakness is mainly related to hypoxia with exertion she desaturates fairly easily however at rest is quite comfortable. Has family at home (her daughter) who can assist with her care as well. Denies chest pain, nausea, vomiting. Still complains of weakness and shortness of breath with exertion. Of note, mouth still sore but improving with treatment for thrush with nystatin Exam Vital signs and Labs for Last 24 Hours: Temp Pulse Resp BP Pulse Ox 98.6 F 82 24 156/77 H 91 L 06/02/20 04:00 06/02/20 04:00 06/02/20 04:00 06/02/20 04:00 06/02/20 06:53 I & O for Last 24 hours: Intake & Output 05/30/20 05/31/20 06/01/20 06/02/20 23:59 23:59 23:59 23:59 Intake Total 2345 / 2345 2288 / 2528 2904 / 2904 Output Total 750 / 750 2200 / 2600 2425 / 2425 700 / 700 Balance 1595 / 1595 88 / -72 479 / 479 -700 / -700 Weight 72 kg 71.441 kg 78.018 kg 77.111 kg Microbiology Reports for the Last 24 Hours: Microbiology 05/30/20 09:23 Sputum - Expectorated Sputum Gram Stain - Final 05/30/20 09:23 Sputum - Expectorated Sputum Sputum Culture - Preliminary Staphylococcus aureus Narrative: - Constitutional mild distress; Appears weak and tired. Breathing easily. - *Routine HEENT Exam Head: Present: normocephalic Eye: Present: EOMI, PERRL ENT: Present: mucous membranes moist; thrush on hard palate, improvement in white plaque along gum appreciable after removing her upper dentures - *Routine Neck Exam Present: supple. Absent: lymphadenopathy - *Routine Respiratory Exam Present: CTA bilaterally, no crackle, no wheeze - *Routine Cardiovascular Exam Present: RRR - *Routine Abdominal Exam Present: soft, normoactive bowel sounds. Absent: tenderness - *Routine Extremities Exam Absent: cyanosis, clubbing, edema - *Routine Skin Exam Present: warm. Absent: rash - *Routine Neurological Exam Present: alert, oriented X3 Assessment and Plan (1) Acute respiratory failure with hypoxia Status: Acute Category: Medical Code(s): J96.01 - Acute respiratory failure with hypoxia (2) COVID-19 virus infection Status: Acute Category: Medical Code(s): U07.1 - COVID-19 (3) Pulmonary emboli Status: Acute Qualifiers: Pulmonary embolism type: multiple subsegmental (without acute cor pulmonale) Qualified Code(s): I26.94 - Multiple subsegmental pulmonary emboli without acute cor pulmonale Category: Medical Code(s): I26.99 - Other pulmonary embolism without acute cor pulmonale (4) Thrush Status: Acute Category: Medical Code(s): B37.0 - Candidal stomatitis (5) Obesity, Class I, BMI 30-34.9 Status: Chronic Category: Medical Code(s): E66.9 - Obesity, unspecified - Assessment and plan all Dx Assessment and Plan for all problems:: 84-year-old female with acute hypoxemic respiratory failure secondary to COVID-19 pneumonia. Noted to have multiple subsegmental PEs on presentation as well. Admitted to our isolation unit for further management of her respiratory failure and thromboembolic events. - Oxygen requirement somewhat improved down to 2 L nasal cannula oxygen. Anticipate discharge home with oxygen when patient medically appropriate for discharge; titrate oxygen to goal saturation greater than 88% - Continue breathing treatments as ordered - Continue Lovenox for treatment of PEs; would benefit from transition to oral anticoagulant when discharged home to continue for t
[2020-06-02 08:40] LABS: Basophils % 0.1 % (0.1-2.0); Eosinophils # 0.1 K/mm3 (0.0-0.4); Eosinophils % 0.7 % (0.1-12.0); Hematocrit 32.7 % (37.0-47.0); Hemoglobin 10.7 g/dL (12.2-16.2); Lymphocytes # 1.2 K/mm3 (0.7-4.5); Lymphocytes % 9.9 % (10-50); Mean Corpuscular HGB Conc 32.6 g/dL (31.8-35.4); Mean Corpuscular Hemoglobin 28.6 pg (27.0-31.2); Mean Corpuscular Volume 87.8 fl (81-99); Mean Platelet Volume 8.6 fl (7.4-10.4); Monocytes # 0.6 K/mm3 (0.1-1.0); Monocytes % 5.5 % (1.7-9.3); Neutrophils # 9.7 K/mm3 (1.8-7.8); Neutrophils % 83.7 % (37.0-80.0); Platelet Count 422 K/mm3 (142-424); Red Blood Count 3.73 M/mm3 (4.20-5.40); Red Cell Distribution Width 14.9 % (11.5-17.5); White Blood Count 11.6 K/mm3 (4.8-10.8)
[2020-06-02 08:45] LABS: Potassium 3.4 mmoL/L (3.5-5.1); Sodium 136 mmol/L (136-145)
[2020-06-02 08:46] LABS: Chloride 102 mmol/L (98-107)
[2020-06-02 08:47] LABS: Blood Urea Nitrogen 20 mg/dl (7-17); Creatinine Clearance Estimated 50 mL/min (50-200); Estimated Glomerular Filt Rate 80 ml/min (>60); GFR (African American) 96 ML/MIN (>60)
[2020-06-02 08:48] LABS: Alanine Aminotransferase 20 U/L (12-78); Alkaline Phosphatase 64 U/L (38-126); Anion Gap 8.4 mEq/L (5-15); Aspartate Amino Transferase 34 U/L (14-36); Bilirubin,Total 0.6 mg/dl (0.2-1.3); Calcium 8.5 mg/dl (8.4-10.2); Carbon Dioxide 29 mmol/L (22.0-30.0); Globulin 2.9 g/dL (1.3-3.2); Glucose 94 mg/dl (74-100); Total Protein,Serum 5.9 g/dl (6.3-8.2)
[2020-06-02 08:49] LABS: Magnesium 1.7 mg/dl (1.6-2.3)
--- NOTE | 2020-06-02 09:13 | PC.NURSE ---
cleaned denture cup out, brushed teeth and and rinsed put teeth back in denture cup with half water and half mouth wash. patient watched staff as this was done.
--- NOTE | 2020-06-02 10:07 | XR_ITS ---
PROCEDURE: XR CHEST PORTABLE CLINICAL HISTORY: progression of pneumonia COMPARISON: CR CXR CHEST(2 VIEWS-NOT PORTABLE) from 01/22/2016 DX CXR CHEST(2 VIEWS-NOT PORTABLE) from 05/22/[address] ANGIO CHEST from 05/29/2020 CR XR CHEST PORTABLE from 05/29/2020 FINDINGS: Mild cardiomegaly without failure. There is a small hiatal hernia. Peripheral ground-glass opacities in the right lower lobe and left perihilar region noted unchanged on the right and slightly worse in the left perihilar area. No acute bony abnormalities. IMPRESSION: Bilateral ground-glass opacities consistent with pneumonia unchanged on the right and slightly worse in the left perihilar region Dictated by: Marcus Tellez MD 06/02/2020 15:44 Marcus Tellez MD in [facility] 06/02/2020 15:44
--- NOTE | 2020-06-02 10:42 | PC.NURSE ---
Have called and ensured radiology that pt has a cxr ordered. States she will be here as soon as possible. Also, notified [facility] pt needed a vanc IV dosed and Dr. eRddy made aware as well when rounding this am. Dr. Reddy has chose to hold off on vanc at this time. PRN docusate/senna ordered 1 /day as well per Dr. Reddy. Will cont to mx this shift.
--- NOTE | 2020-06-02 17:16 | PC.NURSE ---
Pt is alert and oriented x 4. Remains on 2 L NC. RR even and unlabored at this time. NAD. Pt has sit up to chair some this shift. IV saline locked. No complaints at this time, has had no further c/o of nausea or pain. CB in reach. Scattered geovani exp. rhonchi. Did give prn senna/docusate and pt has not had a successful bm thus far. No edema noted. Has been sinus arrythmia on tele. Currently sats 93% on 2 L. VSS. Remains safe, will cont to mx.
--- NOTE | 2020-06-02 17:16 | PC.NURSE ---
pt stated her family was bringing her supper, she demanded i throw the supper out from the hospital.
--- NOTE | 2020-06-02 17:18 | PC.NURSE ---
nurse oskar offered wash cloths and towels with basin for bath and patient refused all the above.
[2020-06-03] VITALS (10 sets, daily range): BP systolic 130–157; BP diastolic 64–86; PULSE 60–84; RESP 18–24; TEMP 36.7–37.2; O2SAT 85–95; BMI 29.2
--- NOTE | 2020-06-03 04:53 | PC.NURSE ---
Pt A&OX4 rhonchi t/o. O2 sats upper 90s on 2L NC. pt medicated for nausea per MAR x 1. pt voids per BSC. pt has rested quietly this shift
[2020-06-03 07:04] LABS: Basophils % 0.2 % (0.1-2.0); Eosinophils # 0.1 K/mm3 (0.0-0.4); Eosinophils % 1.2 % (0.1-12.0); Hematocrit 27.8 % (37.0-47.0); Lymphocytes # 1.1 K/mm3 (0.7-4.5); Lymphocytes % 15.1 % (10-50); Mean Corpuscular HGB Conc 30.8 g/dL (31.8-35.4); Mean Corpuscular Hemoglobin 27.1 pg (27.0-31.2); Mean Corpuscular Volume 87.9 fl (81-99); Monocytes # 0.6 K/mm3 (0.1-1.0); Monocytes % 7.5 % (1.7-9.3); Neutrophils # 5.6 K/mm3 (1.8-7.8); Neutrophils % 75.9 % (37.0-80.0); Platelet Count 364 K/mm3 (142-424); Red Blood Count 3.16 M/mm3 (4.20-5.40); Red Cell Distribution Width 14.2 % (11.5-17.5); White Blood Count 7.3 K/mm3 (4.8-10.8)
[2020-06-03 07:15] LABS: Magnesium 1.7 mg/dl (1.6-2.3)
[2020-06-03 07:53] LABS: Hemoglobin 8.6 g/dL (12.2-16.2)
--- NOTE | 2020-06-03 08:20 | HMH.ACPN2 ---
Internal Medicine - PN: Subj *Date: 06/03/20 *Time: 11:56 Interval history: Ms. Arriaga has done well overnight. Slept better last night per her report. Still no bowel movement but denies nausea, vomiting. Tolerating portions of her nutrition, staying well-hydrated with good p.o. intake. No IV fluids running at this time. Mouth intervally improved but still sore. Overall she states she is feeling better today. Still has significant fatigue however. Afebrile, normotensive. Saturations in the low 90s on 2 L nasal cannula. Exam Vital signs and Labs for Last 24 Hours: Temp Pulse Resp BP Pulse Ox 98.9 F 60 20 154/70 H 93 L 06/03/20 04:00 06/03/20 04:00 06/03/20 04:00 06/03/20 04:00 06/03/20 07:20 Laboratory Results - last 24 hr 06/02/20 08:35: WBC 11.6 H, RBC 3.73 L, Hgb 10.7 L, Hct 32.7 L, MCV 87.8, MCH 28.6, MCHC 32.6, RDW 14.9, Plt Count 422 D, MPV 8.6, Neut % (Auto) 83.7 H, Lymph % (Auto) 9.9 L, Bee % (Auto) 5.5, Eos % (Auto) 0.7, Baso % (Auto) 0.1, Neut # (Auto) 9.7 H, Lymph # (Auto) 1.2, Bee # (Auto) 0.6, Eos # (Auto) 0.1, Baso # (Auto) 0.0 06/02/20 08:35: Magnesium 1.7 06/02/20 08:35: Sodium 136, Potassium 3.4 L, Chloride 102, Carbon Dioxide 29, Anion Gap 8.4, BUN 20 H, Creatinine 0.70, Estimated Creat Clear 50, Estimated GFR 80, Est GFR ( Amer) 96, Glucose 94, Calcium 8.5, Total Bilirubin 0.6, AST 34, ALT 20, Alkaline Phosphatase 64, Total Protein 5.9 L, Albumin 3.0 L D, Globulin 2.9, Albumin/Globulin Ratio 1.0 L 06/03/20 05:20: WBC 7.3 D, RBC 3.16 L, Hgb 8.6 L D, Hct 27.8 L, MCV 87.9, MCH 27.1, MCHC 30.8 L, RDW 14.2, Plt Count 364, MPV 9.0, Neut % (Auto) 75.9, Lymph % (Auto) 15.1, Bee % (Auto) 7.5, Eos % (Auto) 1.2, Baso % (Auto) 0.2, Neut # (Auto) 5.6, Lymph # (Auto) 1.1, Bee # (Auto) 0.6, Eos # (Auto) 0.1, Baso # (Auto) 0.0 06/03/20 05:20: Magnesium 1.7 I & O for Last 24 hours: Intake & Output 05/31/20 06/01/20 06/02/20 06/03/20 23:59 23:59 23:59 23:59 Intake Total 2288 / 2528 2904 / 2904 960 / 960 250 / 250 Output Total 2200 / 2600 2425 / 2425 2100 / 2100 900 / 900 Balance 88 / -72 479 / 479 -1140 / -1140 -650 / -650 Weight 71.441 kg 78.018 kg 77.111 kg 74.843 kg Microbiology Reports for the Last 24 Hours: Microbiology 05/30/20 09:23 Sputum - Expectorated Sputum Gram Stain - Final 05/30/20 09:23 Sputum - Expectorated Sputum Sputum Culture - Preliminary Staphylococcus aureus Narrative: - Constitutional No acute distress; Appears weak and tired. Breathing easily/bili on 2 L nasal cannula - *Routine HEENT Exam Head: Present: normocephalic Eye: Present: EOMI, PERRL ENT: Present: mucous membranes moist; improvement in thrush on hard palate, mild erythema roof of mouth. - *Routine Neck Exam Present: supple. Absent: lymphadenopathy - *Routine Respiratory Exam Present: CTA bilaterally, no crackle, no wheeze - *Routine Cardiovascular Exam Present: RRR - *Routine Abdominal Exam Present: soft, normoactive bowel sounds. Absent: tenderness - *Routine Extremities Exam Absent: cyanosis, clubbing, edema - *Routine Skin Exam Present: warm. Absent: rash - *Routine Neurological Exam Present: alert, oriented X3 Assessment and Plan (1) Acute respiratory failure with hypoxia Status: Acute Category: Medical Code(s): J96.01 - Acute respiratory failure with hypoxia (2) COVID-19 virus infection Status: Acute Category: Medical Code(s): U07.1 - COVID-19 (3) Pulmonary emboli Status: Acute Qualifiers: Pulmonary embolism type: multiple subsegmental (without acute cor pulmonale) Qualified Code(s): I26.94 - Multiple subsegmental pulmonary emboli without acute cor pulmonale Category: Medical Code(s): I26.99 - Other pulmonary embolism without acute cor pulmonale (4) Thrush Status: Acute Category: Medical Code(s): B37.0 - Candidal stomatitis (5) Obesity, Class I, BMI 30-34.9 Status: Chronic Category:
--- NOTE | 2020-06-03 11:53 | PC.NURSE ---
Dr. Reddy here and rounded on pt. He d/cd IV doxycycline and is changing to po. Pt currently sating 89 % on RA. Remains safe. Will cont to mx. VSS.
--- NOTE | 2020-06-03 17:54 | PC.NURSE ---
Pt is alert and oriented and able to make needs known. Pt has had food brought from home this shift and did refused lunch and supper trays and ate chicken salad and a milkshake(for lunch) and fish (for supper) from home. Pt is on lovenox for vte. Pt has been up to chair this shift. Pt did desat to 85% on RA. Pt is back on 2 L at this time and currently 94%. CB in reach. Lungs cta/diminished bases, prn stool softner given this shift. Bruising to abd. NO bm at this time. Have encouraged po water and high fiber foods and sitting up in chair. Have encouraged use of incentive spirometer. Has been sinus arrythmia on tele. Remains safe. Will cont to mx. VSS at this time.
[2020-06-04] VITALS: BP 124/70; PULSE 63; PULSE 70; RESP 20; TEMP 36.6; O2SAT 97
[2020-06-04 04:00] VITALS: BP 142/74; PULSE 60; PULSE 65; RESP 22; TEMP 36.2; O2SAT 96
[2020-06-04 06:00] VITALS: BMI 29.0
--- NOTE | 2020-06-04 06:50 | PC.NURSE ---
Pt is A&Ox4 and [place] [facility] [place] in room several time this shift and tolerates well. Pt still c/o being weak and feeling sick and tired . Pt has also c/o the discomfort of the bed. Continues on 2LPM of O2, sao2 94-96% this shift. pt reports SOA with exertion and pt has refused to use combivent inhaler d/t she believes it has worsened her mouth sores. Pt does take nystatin for oral thrush. Pt encouraged to use IS, pt able to get just under 1,000ml. Diminished lungs sounds to posterior. Lovenox per AUG. Pt has has good oral intake and has had 1650ml output. Still no BM, pt on stool softener. Sinus Arrhythmia & NSR with occasional PAC on tele. Call light within reach.
[2020-06-04 06:56] LABS: Chloride 100 mmol/L (98-107); Potassium 3.8 mmoL/L (3.5-5.1); Sodium 134 mmol/L (136-145)
[2020-06-04 06:58] LABS: Basophils % 0.2 % (0.1-2.0); Blood Urea Nitrogen 27 mg/dl (7-17); Creatinine Clearance Estimated 49 mL/min (50-200); Eosinophils # 0.1 K/mm3 (0.0-0.4); Eosinophils % 1.3 % (0.1-12.0); Estimated Glomerular Filt Rate 95 ml/min (>60); GFR (African American) 115 ML/MIN (>60); Hematocrit 29.8 % (37.0-47.0); Hemoglobin 9.9 g/dL (12.2-16.2); Lymphocytes # 1.5 K/mm3 (0.7-4.5); Lymphocytes % 14.5 % (10-50); Mean Corpuscular HGB Conc 33.3 g/dL (31.8-35.4); Mean Corpuscular Hemoglobin 28.7 pg (27.0-31.2); Mean Corpuscular Volume 86.2 fl (81-99); Mean Platelet Volume 8.8 fl (7.4-10.4); Monocytes # 0.6 K/mm3 (0.1-1.0); Neutrophils # 7.9 K/mm3 (1.8-7.8); Platelet Count 419 K/mm3 (142-424); Red Blood Count 3.46 M/mm3 (4.20-5.40); Red Cell Distribution Width 14.6 % (11.5-17.5); White Blood Count 10.1 K/mm3 (4.8-10.8)
[2020-06-04 06:59] LABS: Alanine Aminotransferase 17 U/L (12-78); Albumin Level 2.8 g/dl (3.5-5.0); Alkaline Phosphatase 47 U/L (38-126); Anion Gap 8.8 mEq/L (5-15); Aspartate Amino Transferase 31 U/L (14-36); Bilirubin,Total 0.6 mg/dl (0.2-1.3); Carbon Dioxide 29 mmol/L (22.0-30.0); Globulin 2.7 g/dL (1.3-3.2); Total Protein,Serum 5.5 g/dl (6.3-8.2)
[2020-06-04 07:00] LABS: Calcium 8.4 mg/dl (8.4-10.2); Glucose 83 mg/dl (74-100)
--- NOTE | 2020-06-04 07:25 | HMH.DCSUM ---
General - General Admission date:: 05/29/20 Discharge date: 06/04/20 HPI HPI: 84-year-old white female with history of COPD and history of recurrent pulmonary embolism diagnosed by Dr. Mcdowell from pulmonology service several years ago who has only been on aspirin therapy recently because of fall risk, who has been living at home with her who has been diagnosed with COVID-19 pneumonitis and went into significant respiratory failure and has been intubated for the past week and last night was transferred to [facility]. I saw her in the office 5 days ago, she had similar symptoms, rapid antigen testing was positive for Covid 19, and we elected to do supportive care as her oxygen saturations were normal as were her vital signs. Unfortunately over the past 24 hours she has become progressively worse, significant dyspnea and fatigue, came to the emergency department, hypoxic, was found on CTA scanning to have recurrent small pulmonary embolism and was admitted to hospital. Hospital Course Hospital Course: Ms. Arriaga is an 84-year-old female who presented with acute respiratory failure, ARDS due to COVID-19 pneumonia. She was initiated on supplemental oxygen and COVID-19 protocol including steroids, remdesivir, and vitamin supplementation. Sputum culture positive for staph leading to initiation of doxycycline and discontinuation of empiric Levaquin that was started on admission. She finished her 5-day course of remdesivir and has done quite well during her admission with gradual decrease in her oxygen requirement. Physical therapy assessed her during hospitalization and recommended that she was stable to go home as she was at her baseline function with desaturations with exertion but otherwise independent. Patient tolerated blood pressure regimen, stool softener, regular diet during admission and has been off of IV fluids for over 48 hours maintaining adequate hydration. Extensive discussion with patient on day of discharge about her fatigue and anticipated long course to regain energy back to level of function prior to getting sick. She will continue to need oxygen and nebulizers once home. Finish antibiotics in the outpatient setting. We will have close follow-up with her in the clinic in the next week. Denies chest pain, nausea, vomiting. Had bowel movement on day of discharge. Shortness of breath stable. Remains afebrile. Hemodynamically stable. [place] with her and her daughter today (spoke with daughter over the phone) for more than 30 minutes about discharge planning, follow-up plan, continue treatment course in the outpatient setting, and anticipated time course of illness. Patient and daughter both state understanding. Medically stable for discharge home. DME required as patient has hospital bed, bedside commode, walker is in the home setting. Pt will need Home O2, 2L continuous. RA sat 85% 06/03/20. Also needs Nebulizer. please note Discharge counseling greater than 30 minutes for billing. Objective Vital signs: Temp Pulse Resp BP Pulse Ox 97.9 F 63 20 124/70 97 06/04/20 00:00 06/04/20 00:00 06/04/20 00:00 06/04/20 00:00 06/04/20 00:00 Narrative: - Constitutional No acute distress; Appears weak and tired. Breathing easily/bili on 2 L nasal cannula - *Routine HEENT Exam Head: Present: normocephalic Eye: Present: EOMI, PERRL ENT: Present: mucous membranes moist; improvement in thrush on hard palate, mild erythema roof of mouth. - *Routine Neck Exam Present: supple. Absent: lymphadenopathy - *Routine Respiratory Exam Present: CTA bilaterally, no crackle, no wheeze - *Routine Cardiovascular Exam Present: RRR - *Routine Abdominal Exam Present: soft, normoactive bowel sounds. Absent: tenderness - *Routine Extremities Exam Absent: cyanosis, clubbing, edema - *Routine Skin Exam Present: warm. Absent: rash - *Routine Neurological Exam Present
--- NOTE | 2020-06-04 09:26 | SW/DCPLANNER ---
SET UP HOME 02 AND NEBULIZER FOR THIS PATIENT IN ORDER TO DISCHARGE TO HOME TODAY. GEORGI WILL BE BRINGING A PORTABLE TANK UP TO HER ROOM PRIOR TO DISCHARGE...
[2020-06-04 09:50] VITALS: BP 140/84; PULSE 72; RESP 20; TEMP 36.7; O2SAT 95
[2020-06-04 10:14] VITALS: PULSE 72; RESP 20; O2SAT 95
[2020-06-04 12:00] VITALS: BP 144/80; PULSE 84; RESP 20; TEMP 36.2; O2SAT 94
== END 2020-06-04 12:45 | disposition home or self-care (01) | DRG 177 ==
LOC: ER 17:19 → ICU 05-30 06:32
PROVIDERS: Admitting Provider Internal Medicine Adolescent Medicine; Emergency Provider Emergency Medicine; PCP Internal Medicine Adolescent Medicine; Visit Provider Internal Medicine Adolescent Medicine
DX: U07.1 COVID-19 (principal); J12.89 Other viral pneumonia; J96.01 Acute respiratory failure with hypoxia; I26.94 Multiple subsegmental thrombotic pulmonary emboli without acute cor pulmonale; B37.0 Candidal stomatitis; J44.9 Chronic obstructive pulmonary disease, unspecified; I10 Essential (primary) hypertension; Z79.52 Long term (current) use of systemic steroids; Z88.0 Allergy status to penicillin; Z88.2 Allergy status to sulfonamides; Z79.899 Other long term (current) drug therapy
CPT/HCPCS: 36415; 71045; 71275; 80048; 80053; 81001; 83605; 83735; 84145; 84484; 85007; 85025; 85378; 85610; 85730; 86328; 87040; 87070; 87077; 87186; 87205; 87581; 87633; 87798; 93005; 94640; 94761; 96372; 96374; 96375; 97163; 99282; J2405; Q9967

== ENCOUNTER → 2020-07-10 15:43 | Outpatient (CLI) | payer MEDICARE, SELFPAY ==
--- NOTE | 2020-07-10 16:23 | XR_ITS ---
PROCEDURE: XR CHEST 2V CLINICAL HISTORY: COPD W/ CHRONIC BRONCHITIS COMPARISON: DX CXR CHEST(2 VIEWS-NOT PORTABLE) from 05/22/[address] ANGIO CHEST from 05/29/2020 CR XR CHEST PORTABLE from 05/29/2020 CR XR CHEST PORTABLE from 06/02/2020 FINDINGS: Borderline cardiomegaly without failure. Hiatal hernia is noted. There is an ill-defined parenchymal opacity in the right upper lobe laterally at 5.5 by 2.7 cm. This is not apparent on a previous CT scan of 05/29/2020 and may be related to an area masslike consolidation/pneumonia. Cannot exclude the possibility of a rapidly developing neoplasm. Follow-up suggested. Postsurgical changes in the right shoulder IMPRESSION: 5.5 x 2.7 cm area of masslike consolidation in the right upper lobe which may represent pneumonia. Recommend following till clear as rapidly developing neoplasm is an additional consideration Dictated by: Marcus Tellez MD 07/10/2020 17:44 Marcus Tellez MD in [facility] 07/10/2020 17:44
[2020-07-10 17:01] LABS: Basophils # 0.1 K/mm3 (0-0.2); Basophils % 0.9 % (0.1-2.0); Eosinophils # 0.3 K/mm3 (0.0-0.4); Eosinophils % 4.4 % (0.1-12.0); Hematocrit 30.6 % (37.0-47.0); Hemoglobin 9.4 g/dL (12.2-16.2); Lymphocytes # 1.6 K/mm3 (0.7-4.5); Lymphocytes % 20.4 % (10-50); Mean Corpuscular HGB Conc 30.6 g/dL (31.8-35.4); Mean Corpuscular Hemoglobin 26.5 pg (27.0-31.2); Mean Corpuscular Volume 86.6 fl (81-99); Mean Platelet Volume 8.2 fl (7.4-10.4); Monocytes # 0.6 K/mm3 (0.1-1.0); Monocytes % 7.9 % (1.7-9.3); Neutrophils # 5.1 K/mm3 (1.8-7.8); Neutrophils % 66.4 % (37.0-80.0); Platelet Count 436 K/mm3 (142-424); Red Blood Count 3.54 M/mm3 (4.20-5.40); Red Cell Distribution Width 14.4 % (11.5-17.5); White Blood Count 7.7 K/mm3 (4.8-10.8)
[2020-07-10 17:23] LABS: Alanine Aminotransferase 13 U/L (12-78); Albumin Level 3.5 g/dl (3.5-5.0); Albumin/Globulin Ratio 1.3 (1.1-1.8); Alkaline Phosphatase 74 U/L (38-126); Anion Gap 7.5 mEq/L (5-15); Aspartate Amino Transferase 19 U/L (14-36); Bilirubin,Total 0.4 mg/dl (0.2-1.3); Blood Urea Nitrogen 14 mg/dl (7-17); Calcium 9.7 mg/dl (8.4-10.2); Carbon Dioxide 37 mmol/L (22.0-30.0); Chloride 100 mmol/L (98-107); Estimated Glomerular Filt Rate 60 ml/min (>60); GFR (African American) 72 ML/MIN (>60); Globulin 2.8 g/dL (1.3-3.2); Glucose 143 mg/dl (74-100); Potassium 3.5 mmoL/L (3.5-5.1); Sodium 141 mmol/L (136-145); Total Protein,Serum 6.3 g/dl (6.3-8.2)
[2020-07-10 17:32] LABS: NT Pro Brain Natriuretic Pep. 974 pg/mL (0-450)
== END ==
PROVIDERS: Visit Provider Internal Medicine Adolescent Medicine
DX: I10 Essential (primary) hypertension (principal); J44.9 Chronic obstructive pulmonary disease, unspecified; R06.00 Dyspnea, unspecified
CPT/HCPCS: 36415; 71046; 80053; 83880; 85025

== ENCOUNTER → 2020-08-21 13:49 | Outpatient (CLI) | payer MEDICARE, SELFPAY ==
[2020-08-21 14:30] LABS: Basophils # 0.1 K/mm3 (0-0.2); Basophils % 0.8 % (0.1-2.0); Eosinophils # 0.9 K/mm3 (0.0-0.4); Eosinophils % 12.1 % (0.1-12.0); Hematocrit 31.1 % (37.0-47.0); Hemoglobin 9.7 g/dL (12.2-16.2); Lymphocytes # 1.7 K/mm3 (0.7-4.5); Lymphocytes % 22.3 % (10-50); Mean Corpuscular HGB Conc 31.2 g/dL (31.8-35.4); Mean Corpuscular Hemoglobin 24.4 pg (27.0-31.2); Mean Corpuscular Volume 78.3 fl (81-99); Monocytes # 0.7 K/mm3 (0.1-1.0); Monocytes % 8.6 % (1.7-9.3); Neutrophils # 4.3 K/mm3 (1.8-7.8); Neutrophils % 56.3 % (37.0-80.0); Platelet Count 368 K/mm3 (142-424); Red Blood Count 3.97 M/mm3 (4.20-5.40); Red Cell Distribution Width 15.3 % (11.5-17.5); White Blood Count 7.7 K/mm3 (4.8-10.8)
[2020-08-21 16:13] LABS: Chloride 100 mmol/L (98-107); Sodium 137 mmol/L (136-145)
[2020-08-21 16:16] LABS: Alanine Aminotransferase 13 U/L (12-78); Albumin Level 3.9 g/dl (3.5-5.0); Albumin/Globulin Ratio 1.4 (1.1-1.8); Alkaline Phosphatase 82 U/L (38-126); Aspartate Amino Transferase 28 U/L (14-36); Bilirubin,Total 0.4 mg/dl (0.2-1.3); Blood Urea Nitrogen 13 mg/dl (7-17); Calcium 9.6 mg/dl (8.4-10.2); Carbon Dioxide 33 mmol/L (22.0-30.0); Estimated Glomerular Filt Rate 60 ml/min (>60); GFR (African American) 72 ML/MIN (>60); Globulin 2.8 g/dL (1.3-3.2); Glucose 90 mg/dl (74-100); Total Protein,Serum 6.7 g/dl (6.3-8.2)
[2020-08-21 16:17] LABS: Magnesium 1.8 mg/dl (1.6-2.3)
[2020-08-21 16:25] LABS: NT Pro Brain Natriuretic Pep. 362 pg/mL (0-450)
== END ==
PROVIDERS: Visit Provider Internal Medicine Adolescent Medicine
DX: I10 Essential (primary) hypertension (principal); R06.02 Shortness of breath
CPT/HCPCS: 36415; 80053; 83735; 83880; 85025

== ENCOUNTER 2020-09-04 12:38 | Outpatient (RCR) | payer MEDICARE, SELFPAY ==
--- NOTE | 2020-09-04 16:27 | HMH.SLDYSPHA ---
Speech & Language Evaluation Speech/Language Dysphagia Evaluation Start: 09/04/20 14:35 Freq: ONCE Status: Active Protocol: Document 09/04/20 14:35 CMAY (Rec: 09/04/20 15:01 CMAY [id number]) Dysphagia Assess/Goals/Plan Assessment Date of Evaluation: 09/04/20 Evaluation Type Initial Certification Assessment/Problems Dysphagia Does Patient Qualify for Service Yes Qualify/Failure Comment Based on the results of today' s evaluation, it is recommended that Mrs. Arriaga receive a MBSS to determine a safe diet and r/o possible penetration/aspiration. Recommendations PHYSICIAN CERTIFICATION: The specified therapy services are required, authorized, and reviewed every 30 days. Pt will be seen # times/week 1 for # weeks 12 Diet Recommendations Mechanical Soft Liquid Type Recommendations Normal/Thin SL Swallow Guidelines Standard Aspiration Prec. Dysphagia Swallow Precautions/Strategies Sitting Upright (90 deg), Liquids from Straw,Small Bites and Sips Plan Anticipate reaching STG in # weeks 8 Anticipate reaching LTG in # weeks 12 Pt/Guardian verbally ack understanding Yes of dx/prognosis/goals Pt/Guardian verbally ack understanding Yes of/consent to tx prog G -code Required No Nursing Program Manager Goals Diet Mechanical Soft with Liquids Thin Liquids Education Instructions provided Education provided to patient regarding swallowing safety strategies to implement such as drinking small sips via straw, eating MS foods, sitting upright during intake and sitting upright for at least 45 minutes following intake. Pt/Caregiver able to recall information Able to recall/restate Reinforcement needed No Speech & Language HPI History Present Illness Description of Patient Problem Sore Mouth; Dysphagia Pt/Caregiver Concerns Patient voiced that she has a constant cough when eating/ drinking and when not eating/ drinking that is almost always productive. She reported that she had COVID-19 in early May and now has to wear oxygen every day. She stated that she has had her esophagus
== END 2020-09-04 12:40 | disposition home or self-care (01) ==
LOC: ST 12:38
PROVIDERS: PCP Internal Medicine Adolescent Medicine; Visit Provider Internal Medicine Adolescent Medicine
DX: K13.79 Other lesions of oral mucosa (principal)
CPT/HCPCS: 92610

== ENCOUNTER 2020-09-10 12:27 | Observation (INO) | payer MEDICARE, SELFPAY ==
[2020-09-10] VITALS (29 sets, daily range): BP systolic 124–188; BP diastolic 57–89; PULSE 68–88; RESP 17–20; TEMP 36.4–36.8; O2SAT 78–100; BMI 29.9; BMI 29.5
--- NOTE | 2020-09-10 13:11 | XR_ITS ---
PROCEDURE: XR CHEST PORTABLE CLINICAL HISTORY: rib pain COMPARISON: CT CT ANGIO CHEST from 05/29/2020 CR XR CHEST PORTABLE from 05/29/2020 CR XR CHEST PORTABLE from 06/02/2020 CR XR CHEST 2V from 07/10/2020 FINDINGS: Borderline cardiomegaly without failure. Right upper lobe nodular opacity once again noted measuring 2.4 cm. This appears somewhat less apparent than when compared to 07/10/2020 however, the nodule is better circumscribed on today's exam. Continued follow-up is suggested. There is a small hiatal hernia. There is patchy density in the left lower lobe suggesting an area of atelectasis or infiltrate. No acute bony abnormalities. IMPRESSION: Focal nodular density right upper lobe decreased in size but better circumscribed compared to the previous study. Consider follow-up CT for further evaluation to determine the etiology. Left lower lobe atelectasis or infiltrate. Dictated by: Marcus Tellez MD 09/10/2020 14:02 Marcus Tellez MD in [facility] 09/10/2020 14:02
--- NOTE | 2020-09-10 13:13 | HMH.EDGENADL ---
ED Disposition Clinical Impression: Lung mass LLL pneumonia Qualifiers: Pneumonia type: due to unspecified organism Qualified Code(s): J18.9 - Pneumonia, unspecified organism Disposition: Admitted as Observation Condition on Discharge: Good Instructions: DI for Acute Abdominal Pain Referrals: Jv Reddy MD [Primary Care Provider] - Time of Disposition: 18:29 - Critical Care Critical Care Time: No Attestation: On 09/10/20, the high probability of a clinically significant, sudden or life threatening deterioration of the following system(s) required my full and direct attention, intervention and personal management. The time I documented below is in addition to time spent performing reported procedures but includes the following listed in this critical care notation. Medical Decision Making - Skip Inquiry Pt receiving controlled substance: No Vital Signs: 09/10/20 12:28 09/10/20 13:18 09/10/20 13:29 Temperature 98.1 F Temperature Source Oral Pulse Rate Pulse Rate [Left Radial] 78 Respiratory Rate 18 Blood Pressure Blood Pressure [Right Arm] 161/74 H Blood Pressure Mean Blood Pressure Mean [Right Arm] 103 Blood Pressure Source [Right Arm] Automatic Cuff Blood Pressure Position [Right Arm] Sitting 02 Sat by Pulse Oximetry 98 96 95 Oxygen Delivery Method Nasal Cannula Oxygen Flow Rate (LPM) 2 09/10/20 13:30 09/10/20 13:31 09/10/20 13:50 Temperature Temperature Source Pulse Rate Pulse Rate [Left Radial] Respiratory Rate 18 Blood Pressure 154/71 H Blood Pressure [Right Arm] Blood Pressure Mean 98 Blood Pressure Mean [Right Arm] Blood Pressure Source [Right Arm] Blood Pressure Position [Right Arm] 02 Sat by Pulse Oximetry 95 78 L Oxygen Delivery Method Oxygen Flow Rate (LPM) 09/10/20 14:00 09/10/20 14:15 09/10/20 14:30 Temperature Temperature Source Pulse Rate Pulse Rate [Left Radial] Respiratory Rate 18 18 Blood Pressure 179/83 H 159/77 H Blood Pressure [Right Arm] Blood Pressure Mean 99 104 Blood Pressure Mean [Right Arm] Blood Pressure Source [Right Arm] Blood Pressure Position [Right Arm] 02 Sat by Pulse Oximetry 100 99 99 Oxygen Delivery Method Oxygen Flow Rate (LPM) 09/10/20 14:45 09/10/20 15:00 09/10/20 15:21 Temperature Temperature Source Pulse Rate Pulse Rate [Left Radial] Respiratory Rate Blood Pressure 169/72 H Blood Pressure [Right Arm] Blood Pressure Mean 104 Blood Pressure Mean [Right Arm] Blood Pressure Source [Right Arm] Blood Pressure Position [Right Arm] 02 Sat by Pulse Oximetry 98 99 97 Oxygen Delivery Method Oxygen Flow Rate (LPM) 09/10/20 15:30 09/10/20 15:45 09/10/20 16:00 Temperature Temperature Source Pulse Rate 72 76 Pulse Rate [Left Radial] Respiratory Rate 18 18 Blood Pressure 188/78 H 175/89 H Blood Pressure [Right Arm] Blood Pressure Mean 96 99 Blood Pressure Mean [Right Arm] Blood Pressure Source [Right Arm] Blood Pressure Position [Right Arm] 02 Sat by Pulse Oximetry 99 98 98 Oxygen Delivery Method Oxygen Flow Rate (LPM) 09/10/20 16:43 09/10/20 16:45 09/10/20 17:01 Temperature Temperature Source Pulse Rate Pulse Rate [Left Radial] Respiratory Rate Blood Pressure Blood Pressure [Right Arm] Blood Pressure Mean Blood Pressure Mean [Right Arm] Blood Pressure Source [Right Arm] Blood Pressure Position [Right Arm] 02 Sat by Pulse Oximetry 98 100 95 Oxygen Delivery Method Oxygen Flow Rate (LPM) 09/10/20 17:02 09/10/20 17:15 09/10/20 17:30 Temperature Temperature Source Pulse Rate Pulse Rate [Left Radial] Respiratory Rate Blood Pressure 176/68 H 174/57 H Blood Pressure [Right Arm] Blood Pressure Mean 104 96 Blood Pressure Mean [Right Arm] Blood Pressure Source [Right Arm] Blood Pressure P
--- NOTE | 2020-09-10 13:22 | ECG_ITS ---
APPROVED REPORT Exam: Resting ECG HR:72 bpm ECG Measurements Heart Rate 72 AXES OR 130 P 24 QRSd 80 QRS 2 QT 442 T 26 QTc 483 Conclusion Sinus rhythm with marked sinus arrhythmia with occasional premature ventricular complexes Minimal voltage criteria for LVH, may be normal variant Septal infarct, age undetermined Abnormal ECG Electronically signed by : Amauri Lockwood, 09/11/2020 19:38:03
[2020-09-10 13:35] LABS: Chloride 99 mmol/L (98-107); Potassium 3.8 mmoL/L (3.5-5.1); Sodium 136 mmol/L (136-145)
[2020-09-10 13:38] LABS: Anion Gap 8.8 mEq/L (5-15); Basophils % 0.2 % (0.1-2.0); Blood Urea Nitrogen 26 mg/dl (7-17); Carbon Dioxide 32 mmol/L (22.0-30.0); Creatinine Clearance Estimated 50 mL/min (50-200); Eosinophils % 0.2 % (0.1-12.0); Estimated Glomerular Filt Rate 68 ml/min (>60); GFR (African American) 82 ML/MIN (>60); Glucose 105 mg/dl (74-100); Hematocrit 30.7 % (37.0-47.0); Hemoglobin 9.6 g/dL (12.2-16.2); Lipase 203 U/L (23-300); Lymphocytes # 1.2 K/mm3 (0.7-4.5); Lymphocytes % 7.6 % (10-50); Mean Corpuscular HGB Conc 31.3 g/dL (31.8-35.4); Mean Corpuscular Hemoglobin 25.2 pg (27.0-31.2); Mean Corpuscular Volume 80.3 fl (81-99); Mean Platelet Volume 8.4 fl (7.4-10.4); Monocytes # 1.1 K/mm3 (0.1-1.0); Monocytes % 6.7 % (1.7-9.3); Neutrophils # 13.3 K/mm3 (1.8-7.8); Neutrophils % 85.2 % (37.0-80.0); Platelet Count 421 K/mm3 (142-424); Red Blood Count 3.82 M/mm3 (4.20-5.40); White Blood Count 15.6 K/mm3 (4.8-10.8)
[2020-09-10 13:40] LABS: MANUAL DIFFERENTIAL MANUAL DIFFERENTIAL (MANUAL DIFF)
[2020-09-10 15:27] LABS: Microscopic, Urine URINE MICROSCOPIC (MICROSCOPIC)
--- NOTE | 2020-09-10 15:33 | CT_ITS ---
PROCEDURE: CT ANGIO CHEST CLINCIAL INDICATION: R lung pain, LUQ pain Left lower chest pain COMPARISON: CT CT ANGIO CHEST from 05/29/[address] ABDOMEN PELVIS W CON from 09/10/2020 TECHNIQUE: IV Contrast: 70ML Isovue 370 Axial images obtained with sagittal and coronal reformats. All CT scans at the facility use one or more dose reduction, viz: automated exposure control, ma/kV adjustment per patient size (including targeted exams where dose is matched to indication, i.e. head), or iterative reconstruction technique. FINDINGS: HEART AND MEDIASTINAL STRUCTURES: No evidence of pulmonary embolus, aortic aneurysm, or aortic dissection. Tortuosity noted of the descending thoracic aorta. LUNGS AND PLEURAL SPACES: There is a 3.4 x 1.8 cm masslike area of consolidation with some internal lucencies. There is evidence of old granulomatous disease. Atelectatic changes or scarring is present in the left lung base.. No pleural effusions. The multifocal ground-glass infiltrates have overall improved from the previous exam. BONY STRUCTURES: Degenerative changes thoracic spine UPPER ABDOMEN: Hiatal hernia ADDITIONAL FINDINGS: Asymmetric thickening of the lower left thoracic wall musculature extending into the abdominal wall musculature consistent with hematoma. There is focal rectus sheath hematoma also noted. Please see abdomen report for further description. IMPRESSION: 1. Diffuse enlargement of the left lower thoracic wall and abdominal musculature consistent with hematoma with some mild stranding of the fat in this region. 2. Right upper lobe mass at 3.4 x 1.8 cm. There is some internal lucencies. This could be due to masslike area of pneumonia. Neoplasm is not excluded and follow-up is suggested. There are atelectatic changes in left lower lobe.. 3. No evidence of pulmonary embolus Dictated by: Marcus Tellez MD 09/11/2020 07:14 Marcus Tellez MD in [facility] 09/11/2020 07:14
--- NOTE | 2020-09-10 15:33 | CT_ITS ---
PROCEDURE: CT ABDOMEN PELVIS W CON CLINICAL INDICATION: R lung pain, LUQ pain COMPARISON: CT CT ABDOMEN PELVIS W CON from 05/07/2020 TECHNIQUE: IV Contrast: 75ML Isovue 370 Oral Contrast None Axial images obtained with sagittal and coronal reformats. All CT scans at the facility use one or more dose reduction, viz: automated exposure control, ma/kV adjustment per patient size (including targeted exams where dose is matched to indication, i.e. head), or iterative reconstruction technique. FINDINGS: Asymmetric enlargement noted of the left upper abdominal wall musculature with stranding of the subcutaneous tissues. Asymmetric enlargement of the left rectus abdominus muscle consistent with abdominal musculature and rectus sheath hematoma. The rectus hematoma is approximately 5 cm by 5 cm. Medium-sized hiatal hernia. There has been a prior cholecystectomy with intra and extrahepatic biliary dilatation. The spleen and adrenal glands and pancreas have an unremarkable appearance. There is a small left renal cyst at 14 mm. No renal or ureteral calculi. No evidence of appendicitis. There is colonic diverticulosis but no evidence of diverticulitis. There has been a prior hysterectomy. The bowel gas pattern is nonspecific with some nondistended fluid-filled loops of small bowel. Degenerative changes are present in the lumbar spine. IMPRESSION: 1. Left rectus hematoma. There is diffuse enlargement of the oblique musculature on the left as well consistent with hemorrhage along with some stranding of the subcutaneous soft tissues. 2. Colonic diverticulosis without diverticulitis. Dictated by: Marcus Tellez MD 09/11/2020 07:21 Marcus Tellez MD in [facility] 09/11/2020 07:21
[2020-09-10 15:52] LABS: Appearance,Urine CLEAR (Clear); Bilirubin,Urine Negative (Negative); Blood, Urine Negative (Negative); Color,Urine STRAW (Yellow); Glucose,Urine (UA) Negative (Negative); Ketones,Urine Negative (Negative); Leukocyte Esterase,Urine Negative (Negative); Nitrate,Urine Negative (Negative); Protein,Urine Negative (Negative); Urobilinogen,Urine 0.2 EU/dl (0.2)
[2020-09-10 16:11] LABS: Adenovirus,PCR Not Detected (NotDetected); Bordetella Pertussis Not Detected (NotDetected); Chlamydophila Pneumoniae, PCR Not Detected (NotDetected); Coronavirus 19, PCR Not Detected (NotDetected); Coronavirus 229E Not Detected (NotDetected); Coronavirus NL63 Not Detected (NotDetected); Coronavirus OC43 Not Detected (NotDetected); Coronovirus HKU1,PCR Not Detected (NotDetected); Human Metapneumovirus Not Detected (NotDetected); Influenza A, PCR Not Detected (NotDetected); Influenza AH1, 2009 Not Detected (NotDetected); Influenza AH1, PCR Not Detected (NotDetected); Influenza AH3,PCR Not Detected (NotDetected); Influenza B, PCR Not Detected (NotDetected); Mycoplasma Pneumoniae, PCR Not Detected (NotDetected); Parainfluenza 1, PCR Not Detected (NotDetected); Parainfluenza 2, PCR Not Detected (NotDetected); Parainfluenza 3, PCR Not Detected (NotDetected); Parainfluenza 4, PCR Not Detected (NotDetected); Respiratory Syncytial Virus Not Detected (NotDetected); Rhinovirus/Enterovirus Not Detected (NotDetected)
--- NOTE | 2020-09-10 16:21 | PC.NURSE ---
Patient to ct.
--- NOTE | 2020-09-10 16:40 | PC.NURSE ---
Patient back from ct.
[2020-09-10 16:43] LABS: Bacteria,Urine Trace /lpf; WBC,Urine Occasional #/hpf (0-3)
--- NOTE | 2020-09-10 17:52 | PC.NURSE ---
Provider at bedside discussing results and possible admission.
[2020-09-10 18:04] LABS: Hypochromasia 1+; Lymphocytes % 7 % (10-50); Monocytes % 6 % (2-9); Neutrophils % 87 % (42-76); Total Cells Counted 100
[2020-09-10 18:05] LABS: Platelet Estimate Slight Increase
--- NOTE | 2020-09-10 19:34 | PC.NURSE ---
called lab for update on covid swab, stated it would be about 20min
--- NOTE | 2020-09-10 21:19 | PC.NURSE ---
patient up to floor via wheelchair.
[2020-09-11] VITALS (8 sets, daily range): BP systolic 106–148; BP diastolic 50–68; PULSE 83–103; RESP 16–19; TEMP 36.6–36.8; O2SAT 92–99; BMI 29.6
--- NOTE | 2020-09-11 06:59 | PC.NURSE ---
no acute changes since prior assessment, remains on 2L NC, lungs CTA, no complaints of SOA or chest pain, abdomen is tender to touch, has rested well t/o shift,
--- NOTE | 2020-09-11 07:00 | HMH.HP ---
*Admission Date: 09/10/20 *Chief complaint: Shortness of breath, fatigue *History of present illness: Ms. Arriaga is a pleasant 84-year-old female with a recent diagnosis of Covid back in May. Required hospitalization at that time but has been at home since with the assistance of her daughter. Presented to the ER because of worsening abdominal pain in her left upper quadrant and persistent cough. Of note she has had a cough since her diagnosis in May of Covid. On presentation to the ER, noted to have leukocytosis and some abnormalities on chest imaging including calcified lymph nodes on chest CT and consolidated/masslike lesion right upper lobe. Admitted for possible pneumonia and further work-up of lesion on her chest. On exam this morning she complains of left upper quadrant pain is her main concern. She also reports having had cough overnight that was productive and has had some blood-tinged sputum. Denies nette fever but has had elevated temperatures for herself in the high 99's. [facility] History I have reviewed the patient's past medical history: Yes Medical History: Reports:: Asthma, Deep Vein Thrombosis, Depression, Gastroesophageal Reflux Disease(GERD), Hiatal Hernia, Hypertension, Lung Disease, Palpitations, Pulmonary Embolism Denies:: Cancer, Diabetes Mellitus Type 1, Diabetes Mellitus Type 2, Internal Pacemaker, MRSA, Seizures *Have you ever received a pneumonia vaccine?: Yes *Have you received a flu vaccine this season?: Yes Other Medical History: Reports: Anemia, Arthritis, Cataracts (implants), Thyroid Disease, Other. Denies: Blood Transfusion Reaction Laterality Cases: Right: Arthroscopy Shoulder Other Surgeries: Yes: Cholecystectomy, Colonoscopy, , Hysterectomy-Total, Thyroidectomy, Other. No: Pacemaker Amputation: No Fractures: Yes (RIGHT ANKLE) - *Social History Last grade of school completed: 7th or 8th Smoking Status: Former smoker Tobacco Type: cigarettes # Packs/Day (cigarettes): 1 #Yrs smoked (if former smoker): 3 Alcohol Intake: never Substance Use Type: denies use *Occupational Status:: retired Housing: house Household Members: family *Travel in the last 8 weeks: None - Psychiatric History Pschychiatric History:: Reports:: Depression Family Hx:: Hyperlipidemia, Hypertension Review of Systems - Review of Systems Review of systems:: pertinent systems reviewed and negative unless documented below (14 point review of systems performed, pertinent positives and negatives as per HPI) Meds Home Medications Medication Instructions Recorded Confirmed Type meclizine 25 mg tablet 25 mg PO DAILYP PRN tab 09/16/17 09/10/20 History Metoclopramide HCl [Metoclopramide 5 mg PO DAILY 05/30/20 09/10/20 History 5mg Tab] Pantoprazole Sodium 40 mg PO DAILY 05/30/20 09/10/20 History Ipratropium/Albuterol Sulfate 3 ml IH Q4HP PRN 30 Days #100 06/04/20 09/10/20 Rx [Duoneb 3mL neb] ampul.neb Sennosides/Docusate Sodium 1 tab PO DAILYP PRN 14 Days #14 tab 06/04/20 09/11/20 Rx [Senokot-S Tablet] Ferrous Gluconate [Ferrous 324 mg PO DAILY 09/10/20 09/10/20 History Gluconate 324mg Tab] Furosemide [Furosemide 40MG tAB*] 40 mg PO DAILY 09/10/20 09/10/20 History Quetiapine Fumarate [Seroquel] 100 mg PO HSP PRN 09/10/20 09/11/20 History Ascorbic Acid [Vitamin C] 500 mg PO DAILY 09/11/20 09/11/20 History Aspirin [Aspirin 81mg chewable 81 mg PO DAILY 09/11/20 09/11/20 History tab] Citalopram Hydrobromide 20 mg PO DAILY 09/11/20 09/11/20 History [Citalopram 20mg Tablet] Cyanocobalamin (Vitamin B-12) 1,000 mcg PO DAILY 09/11/20 09/11/20 History [Vitamin B-12 1000mcg Tablet] Ergocalciferol (Vitamin D2) 50,000 unit PO WEEKLY 09/11/20 09/11/20 History [Vitamin D2] Famotidine [Acid Controller] 20 mg PO BID 09/11/20 09/11/20 History Hydrocodone/Acetaminophen 1 each PO TIDP PRN 09/11/20 09/11/20 History [Hydrocodone-Acetamin 5-325 mg] Ipratropium/Albuterol Sulfate 1 puff IH QID
[2020-09-11 07:44] LABS: Basophils % 0.3 % (0.1-2.0); Eosinophils # 0.2 K/mm3 (0.0-0.4); Eosinophils % 1.7 % (0.1-12.0); Hematocrit 30.3 % (37.0-47.0); Hemoglobin 9.3 g/dL (12.2-16.2); Lymphocytes # 2.2 K/mm3 (0.7-4.5); Lymphocytes % 21.1 % (10-50); Mean Corpuscular HGB Conc 30.5 g/dL (31.8-35.4); Mean Corpuscular Hemoglobin 24.6 pg (27.0-31.2); Mean Corpuscular Volume 80.6 fl (81-99); Mean Platelet Volume 8.3 fl (7.4-10.4); Monocytes # 0.9 K/mm3 (0.1-1.0); Neutrophils # 7.2 K/mm3 (1.8-7.8); Platelet Count 424 K/mm3 (142-424); Red Blood Count 3.76 M/mm3 (4.20-5.40); Red Cell Distribution Width 18.3 % (11.5-17.5); White Blood Count 10.5 K/mm3 (4.8-10.8)
--- NOTE | 2020-09-11 08:16 | HMH.PHAVTE ---
[facility] Pharmacy VTE Monitoring - Patient Demographics Admission date: 09/11/20 Report Date: 09/11/20 Time: 08:16 Allergies/Adverse Reactions: Patient Allergies Penicillins Allergy (Unknown, Verified 05/29/20 21:23) I-HIVES Sulfa (Sulfonamide Antibiotics) Allergy (Unknown, Verified 05/29/20 21:23) I-HIVES Height: 1.6 m Weight: 75.892 kg Patient Problems: Current Active Problems Lung mass (Acute) LLL pneumonia (Acute) - VTE Risk Labs: VTE Related Lab Results Hgb 9.3 g/dL (12.2-16.2) L 09/11/20 05:30 Hct 30.3 % (37.0-47.0) L 09/11/20 05:30 Plt Count 424 K/mm3 (142-424) 09/11/20 05:30 BUN 26 mg/dl (7-17) H 09/10/20 13:15 Creatinine 0.80 mg/dl (0.52-1.04) 09/10/20 13:15 Estimated Creat Clear 50 mL/min (50-200) 09/10/20 13:15 Was VTE Risk Assessment Performed: Yes VTE Score: 6 VTE Risk Level: Moderate Risk Clinical Trial Participant: No - Prophylaxis VTE Prophylaxis Ordered?: Yes Types of VTE Prophylaxis: TEDS Knee High
--- NOTE | 2020-09-11 10:05 | HMH.PULMCON ---
*Admission Date: 09/11/20 *Reason for consult:: Pneumonia *History of present illness: Ms. Arriaga is a 84-year-old female carries a diagnosis of COPD, recurrent PE previously anticoagulation recently stopped by her primary care physician, previous smoker, last smoked 65 years ago when she was in 20s, recent diagnosis of COVID-19 pneumonia in May 2021 along with MRSA pneumonia for which she was discharged on doxycycline presented to the hospital with worsening respiratory failure and was admitted to the hospital for further management. [facility] History Medical History: Reports:: Asthma, Deep Vein Thrombosis, Depression, Gastroesophageal Reflux Disease(GERD), Hiatal Hernia, Hypertension, Lung Disease, Palpitations, Pulmonary Embolism Denies:: Cancer, Diabetes Mellitus Type 1, Diabetes Mellitus Type 2, Internal Pacemaker, MRSA, Seizures *Have you ever received a pneumonia vaccine?: Yes *Have you received a flu vaccine this season?: Yes Other Medical History: Reports: Anemia, Arthritis, Cataracts (implants), Thyroid Disease, Other. Denies: Blood Transfusion Reaction Laterality Cases: Right: Arthroscopy Shoulder Other Surgeries: Yes: Cholecystectomy, Colonoscopy, , Hysterectomy-Total, Thyroidectomy, Other. No: Pacemaker Amputation: No Fractures: Yes (RIGHT ANKLE) - *Social History Last grade of school completed: 7th or 8th Smoking Status: Former smoker Tobacco Type: cigarettes # Packs/Day (cigarettes): 1 #Yrs smoked (if former smoker): 3 Alcohol Intake: never Substance Use Type: denies use *Occupational Status:: retired Housing: house Household Members: family *Travel in the last 8 weeks: None - Psychiatric History Pschychiatric History:: Reports:: Depression Family Hx:: Hyperlipidemia, Hypertension ROS - Cons Reports body ache(s), Reports chills - Eyes Reports blurry vision - Card Reports shortness of breath with activity, Reports leg swelling - Resp Respiratory: Reports cough, Reports dyspnea on exertion, Reports excessive phlegm production - GI Gastrointestingal: Reports: system reviewed and no additional complaints, except as docu - [place] Musculoskeletal: Reports joint stiffness Meds Home Medications Medication Instructions Recorded Confirmed Type meclizine 25 mg tablet 25 mg PO DAILYP PRN tab 09/16/17 09/10/20 History Metoclopramide HCl [Metoclopramide 5 mg PO DAILY 05/30/20 09/10/20 History 5mg Tab] Pantoprazole Sodium 40 mg PO DAILY 05/30/20 09/10/20 History Ipratropium/Albuterol Sulfate 3 ml IH Q4HP PRN 30 Days #100 06/04/20 09/10/20 Rx [Duoneb 3mL neb] ampul.tony Sennosides/Docusate Sodium 1 tab PO DAILYP PRN 14 Days #14 tab 06/04/20 09/10/20 Rx [Senokot-S Tablet] Apixaban [Eliquis 5mg tab] 5 mg PO DIRECTED 09/10/20 09/10/20 History Ferrous Gluconate [Ferrous 324 mg PO DAILY 09/10/20 09/10/20 History Gluconate 324mg Tab] Furosemide [Furosemide 40MG tAB*] 40 mg PO DAILY 09/10/20 09/10/20 History Nystatin [Nystatin Susp 500,000 5 ml PO QID 09/10/20 09/10/20 History Units/5mL Udc] Quetiapine Fumarate [Seroquel] 100 mg PO HSP PRN 09/10/20 09/11/20 History Ascorbic Acid [Vitamin C] 500 mg PO DAILY 09/11/20 09/11/20 History Aspirin [Aspirin 81mg chewable 81 mg PO DAILY 09/11/20 09/11/20 History tab] Citalopram Hydrobromide 20 mg PO DAILY 09/11/20 09/11/20 History [Citalopram 20mg Tablet] Cyanocobalamin (Vitamin B-12) 1,000 mcg PO DAILY 09/11/20 09/11/20 History [Vitamin B-12 1000mcg Tablet] Ergocalciferol (Vitamin D2) 50,000 unit PO WEEKLY 09/11/20 09/11/20 History [Vitamin D2] Famotidine [Acid Controller] 20 mg PO BID 09/11/20 09/11/20 History Hydrocodone/Acetaminophen 1 each PO TIDP PRN 09/11/20 09/11/20 History [Hydrocodone-Acetamin 5-325 mg] Ipratropium/Albuterol Sulfate 1 puff IH QID 09/11/20 09/11/20 History [Combivent Respimat Inh] Magnesium 250 mg PO DAILY 09/11/20 09/11/20 History Potassium Gluconate [Potassium] 595 mg PO DAILY
--- NOTE | 2020-09-11 18:51 | PC.NURSE ---
Addendum entered by Shakila Blandon RN 09/11/20 18:56: Pt has been instructed to provide a sputum specimen and a specimen cup is at bedside. Original Note: Pt has been pleasant and cooperative this shift. A&O X4. Pt has complained of pain X3 thus far this shift and received Morphine/[place] per MAR with favorable results. No complaints of SOA. Pt is receiving O2 via NC @ 2 LPM with sats. >90%. Lungs CTA. No edema noted. Pt ambulates independently to/from the bathroom and throughout the room. Pt voids clear, yellow urine without issue. No BM this shift. 20 G peripheral IV in the RT hand is patent and SL. 20 G peripheral IV in the LT AC is patent and SL. VSS. Call light within reach. Will continue to monitor.
[2020-09-12] VITALS (18 sets, daily range): BP systolic 113–186; BP diastolic 62–90; PULSE 84–105; RESP 16–20; TEMP 36.2–36.9; O2SAT 92–99; BMI 29.5
--- NOTE | 2020-09-12 01:24 | PC.NURSE ---
She is A&Ox4. She denies any cough. She is aware of the need for a sputum and the cup is available at the bedside. She is afebrile. She continues in airborne precautions. Denies pain. Ambulates independently with a walker to the bathroom. She refuses the non-skid socks stating she wants to use her own house slippers. Continues on 2LPM n/c.
[2020-09-12 06:27] LABS: Basophils # 0.1 K/mm3 (0-0.2); Basophils % 0.9 % (0.1-2.0); Eosinophils # 0.4 K/mm3 (0.0-0.4); Eosinophils % 4.4 % (0.1-12.0); Hematocrit 30.3 % (37.0-47.0); Hemoglobin 9.4 g/dL (12.2-16.2); Lymphocytes # 1.8 K/mm3 (0.7-4.5); Lymphocytes % 21.8 % (10-50); Mean Corpuscular HGB Conc 31.2 g/dL (31.8-35.4); Mean Corpuscular Hemoglobin 24.9 pg (27.0-31.2); Mean Corpuscular Volume 79.7 fl (81-99); Mean Platelet Volume 7.8 fl (7.4-10.4); Monocytes # 0.8 K/mm3 (0.1-1.0); Monocytes % 9.4 % (1.7-9.3); Neutrophils # 5.3 K/mm3 (1.8-7.8); Neutrophils % 63.5 % (37.0-80.0); Platelet Count 430 K/mm3 (142-424); White Blood Count 8.3 K/mm3 (4.8-10.8)
[2020-09-12 06:34] LABS: Alanine Aminotransferase 20 U/L (12-78); Albumin Level 3.3 g/dl (3.5-5.0); Albumin/Globulin Ratio 1.3 (1.1-1.8); Alkaline Phosphatase 53 U/L (38-126); Anion Gap 10.1 mEq/L (5-15); Aspartate Amino Transferase 21 U/L (14-36); Bilirubin,Total 0.3 mg/dl (0.2-1.3); Blood Urea Nitrogen 22 mg/dl (7-17); Calcium 8.5 mg/dl (8.4-10.2); Carbon Dioxide 30 mmol/L (22.0-30.0); Chloride 101 mmol/L (98-107); Creatinine Clearance Estimated 49 mL/min (50-200); Estimated Glomerular Filt Rate 53 ml/min (>60); GFR (African American) 64 ML/MIN (>60); Globulin 2.6 g/dL (1.3-3.2); Glucose 105 mg/dl (74-100); Potassium 4.1 mmoL/L (3.5-5.1); Sodium 137 mmol/L (136-145); Total Protein,Serum 5.9 g/dl (6.3-8.2)
--- NOTE | 2020-09-12 08:16 | HMH.ACPN2 ---
Internal Medicine - PN: Subj *Date: 09/12/20 *Time: 08:16 Interval history: Patient is pleasant, talkative, oriented x3. Complains of some pain in the left upper quadrant where her abdominal wall hematoma is noted. Breathing has stabilized somewhat, has been able to obtain 1 sputum sample for acid-fast bacilli. Exam Vital signs and Labs for Last 24 Hours: Temp Pulse Resp BP Pulse Ox 98.0 F 84 19 113/67 99 09/12/20 03:54 09/12/20 03:54 09/12/20 03:54 09/12/20 03:54 09/12/20 03:54 Laboratory Results - last 24 hr 09/12/20 05:53: WBC 8.3, RBC 3.80 L, Hgb 9.4 L, Hct 30.3 L, MCV 79.7 L, MCH 24.9 L, MCHC 31.2 L, RDW 18.0 H, Plt Count 430 H, MPV 7.8, Neut % (Auto) 63.5, Lymph % (Auto) 21.8, [place] % (Auto) 9.4 H, Eos % (Auto) 4.4, Baso % (Auto) 0.9, Neut # (Auto) 5.3, Lymph # (Auto) 1.8, [place] # (Auto) 0.8, Eos # (Auto) 0.4, Baso # (Auto) 0.1 09/12/20 05:53: Sodium 137, Potassium 4.1, Chloride 101, Carbon Dioxide 30, Anion Gap 10.1, BUN 22 H, Creatinine 1.00 D, Estimated Creat Clear 49, Estimated GFR 53 L, Est GFR ( Amer) 64 D, Glucose 105 H, Calcium 8.5, Magnesium 2.0, Total Bilirubin 0.3, AST 21, ALT 20, Alkaline Phosphatase 53, Total Protein 5.9 L, Albumin 3.3 L, Globulin 2.6, Albumin/Globulin Ratio 1.3 I & O for Last 24 hours: Intake & Output 09/09/20 09/10/20 09/11/20 09/12/20 11:59 11:59 11:59 11:59 Intake Total 240 / 240 650 / 650 Output Total 0 / 0 0 / 0 Balance 240 / 240 650 / 650 Weight 167 lb 5 oz 167 lb Microbiology Reports for the Last 24 Hours: Microbiology 09/10/20 14:00 Sputum - Expectorated Sputum Gram Stain - Final Narrative: Patient is awake, pleasant. Oriented x3. Anterior lung kim are clear. Has some rhonchi in the lower lung kim posteriorly. Heart rate regular. Abdomen soft, abdominal wall hematoma slightly tender but no evidence of extension over her admission exam from yesterday. Lower abdominal kim are soft and nontender. No edema or clubbing in the extremities. Neurologically intact, no rash Assessment and Plan (1) Abdominal pain Status: Acute Category: Medical Code(s): R10.9 - Unspecified abdominal pain (2) Cough Status: Acute Category: Medical Code(s): R05 - Cough (3) Lung mass Status: Acute Category: Medical Code(s): R91.8 - Other nonspecific abnormal finding of lung field (4) Iron deficiency anemia Status: Acute Category: Medical Code(s): D50.9 - Iron deficiency anemia, unspecified (5) History of COVID-19 Status: Resolved Category: Medical Code(s): Z86.16 - Personal history of COVID-19 (6) Overweight (BMI 25.0-29.9) Status: Chronic Category: Medical - Assessment and plan all Dx Assessment and Plan for all problems:: Continue work-up for possible tuberculosis. Patient in negative pressure room. Follow-up with pulmonary. If patient feels better and we get the appropriate samples patient could be discharged tomorrow with outpatient follow-up for bronchoscopy.
--- NOTE | 2020-09-12 09:32 | HMH.PULMPN ---
Internal Medicine - PN: Subj *Date: 09/12/20 *Time: 09:32 Interval history: No acute respiratory events overnight Exam - Constitutional Constitutional:: Present: no acute distress, comfortable - HENMT Exam HENMT: Present: normocephalic, atraumatic - Eye Exam Eyes:: Present: eyelids normal - Neck Exam Neck:: Present: thyroid normal - Respiratory Exam Respiratory:: Present: able to speak in complete sentences, no respiratory distress, normal respiratory effort, crackles - Cardiovascular Exam Cardiac:: Present: S1, S2 - GI Exam GI:: Present: soft, no hepatosplenomegaly - Skin Exam Skin: Present: warm, no rash, dry - Neurological Exam Neurological: Present: alert, awake, normal cognition - Extremities Exam Extremities: Present: no cyanosis, no clubbing, no edema Assessment and Plan (1) Abdominal pain Status: Acute Category: Medical Code(s): R10.9 - Unspecified abdominal pain (2) Cough Status: Acute Category: Medical Code(s): R05 - Cough (3) Lung mass Status: Acute Category: Medical Code(s): R91.8 - Other nonspecific abnormal finding of lung field (4) Iron deficiency anemia Status: Acute Category: Medical Code(s): D50.9 - Iron deficiency anemia, unspecified (5) History of COVID-19 Status: Resolved Category: Medical Code(s): Z86.16 - Personal history of COVID-19 (6) Overweight (BMI 25.0-29.9) Status: Chronic Category: Medical - Assessment and plan all Dx Assessment and Plan for all problems:: #History of COVID-19 pneumonia: # H/O MRSA pneumonia: # Community Acquired Pneumonia: 84-year-old with no significant smoking history, carries a diagnosis COPD and recurrent pulmonary embolism with history of COVID-19 pneumonia in May 2020 but hospital for 3 days and discharged home on doxycycline for her MRSA pneumonia at the time presented to the hospital again with worsening respiratory failure along with cough and productive phlegm. Patient also complains of intermittent streaks of blood with her cough. 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 But however never tested for latent TB infection. Her daughter was treated for latent TB infection. CT chest reviewed and compared from her prior CTA from May 2020, the noted groundglass opacities improved however patient noted to have a new left upper lobe infiltrate with small internal lucencies along with left lower lobe bandlike pulmonary infiltrate / atelectasis . Patient has 1 sputum sample collected for bacterial Gram stain which is any liquid/poor sample. Patient denies any productive phlegm this morning. We will proceed with bronchoscopy. Plan - NPO now (Pt arleth not had her breakfast yet) - We will schedule the patient for bronchoscopy and transbronchial biopsy, will follow with the OR to determine the availability for this procedure. - F/U BC and TB quantiferon - Sputum for Gram stain culture along with ADWOA prep. - Continue clindamycin levofloxacin for possible community-acquired MRSA pneumonia and for pseudomonal coverage - Serum fungal serologies and Aspergillus IgE - Duo nebs Q6 hrs PRN #Thank you for involving pulmonary in this patient care. We will continue to follow.
--- NOTE | 2020-09-12 13:36 | P.PN_ITS ---
[facility] Anesthesia Checklist - Patient Identification Patient Identification: Arm Band - Structural Data Admitted From: Inpatient Planned Operative Procedure/s: Brochoscopy with biopsy Consent for Planned Operative Procedure(s) Verified: Yes Verified Documents: Surgical Consent, History and Physical - NPO Status Verified Time NPO: 06:30 (light breakfast) - Additional verifications Anesthesia Reactions: No Hx Blood Transfusions: No Blood Transfusion Reaction: No - Airway Assessment C-Spine Mobility Assessed: Yes (mp2) TMJ Mobility Assessed: Yes Dentition: Edentulous - Neurological Assessment Level of Consciousness: Awake, Alert - Anesthesia Plan Anesthesia Risk discussed: Yes Anesthesia Plan: Verified ASA Class: III Anesthesia Type: General [facility] History I have reviewed the patient's past medical history: Yes Medical History: Reports:: Asthma, Deep Vein Thrombosis, Depression, Gastroesophageal Reflux Disease(GERD), Hiatal Hernia, Hypertension, Lung Disease, Palpitations, Pulmonary Embolism Denies:: Cancer, Diabetes Mellitus Type 1, Diabetes Mellitus Type 2, Internal Pacemaker, MRSA, Seizures *Have you ever received a pneumonia vaccine?: Yes *Have you received a flu vaccine this season?: Yes Other Medical History: Reports: Anemia, Arthritis, Cataracts (implants), Thyroid Disease, Other. Denies: Blood Transfusion Reaction Anesthesia experience/problems:: nac Laterality Cases: Right: Arthroscopy Shoulder Other Surgeries: Yes: Cholecystectomy, Colonoscopy, , Hysterectomy- Total, Thyroidectomy, Other. No: Pacemaker Amputation: No Fractures: Yes (RIGHT ANKLE) - *Social History Last grade of school completed: 7th or 8th Smoking Status: Former smoker Tobacco Type: cigarettes # Packs/Day (cigarettes): 1 #Yrs smoked (if former smoker): 3 Alcohol Intake: never Substance Use Type: denies use *Occupational Status:: retired Housing: house Household Members: family *Travel in the last 8 weeks: None - Psychiatric History Pschychiatric History:: Reports:: Depression Family Hx:: Hyperlipidemia, Hypertension
--- NOTE | 2020-09-12 14:01 | XR_ITS ---
PROCEDURE: XR CHEST AP CLINICAL INDICATION: RIGHT LUNG BRONCH IN OR 2:29 FLUORO TIME COMPARISON: CR XR CHEST PORTABLE from 06/02/2020 CR XR CHEST 2V from 07/10/[address] ANGIO CHEST from 09/10/2020 CR XR CHEST PORTABLE from 09/10/2020 FINDINGS: Fluoroscopy time: 2 minutes and 29 seconds. Single AP view is submitted demonstrating a bronchus scope in place with biopsy catheter overlying the right lower lobe. IMPRESSION: Fluoroscopic assisted lung biopsy Dictated by: Marcus Tellez MD 10/20/2020 18:49 Marcus Tellez MD in [place] 10/20/2020 18:49
--- NOTE | 2020-09-12 14:02 | P.PN_ITS ---
[facility] Anesthesia Record Part I Intake, IV Amount: 600 Estimated blood loss (mL): 0 Urine output (mL): 0 Blood Pressure: 144/75 SaO2: 93 Pulse Rate: 92 Respiratory Rate: 16 Temperature: 97.1 F Patient is:: Drowsy, Stable Stable to PACU at:: 13:55
--- NOTE | 2020-09-12 14:29 | HMH.BRONCH ---
- Procedure: Date: 09/12/20 Patient Date of :: 1935 Procedure Performed:: Bronchoscopy with bronchoalveolar lavage and transbronchial biopsy Indications:: Pneumonia Performing Provider:: Angela Camacho MD Referring Provider:: Dr. Lockwood Sedation:: General anesthesia Procedure:: Bronchoscopy with bronchoalveolar lavage and transbronchial biopsy: In clinic. Diagnostic bronchoscopy advance the ET tube. Airways were examined up to 6 transbronchial patient noted thick mucoid secretions throughout her airways. No obvious evidence of mucous plugging noted. No bleeding or prior blood clots noted. Airway examination appears grossly normal up to subsegmental bronchi. Bronchoalveolar lavage was performed the right upper with a total of 60 cc instilled with a return of 20 cc. BAL fluid was sent for cell count - differential along with bacterial, fungal and acid-fast staining and culture. Transbronchial biopsies were also performed the right upper lobe under fluoroscopy guidance. A total of 8 biopsies was performed, 6 were sent in formalin for cytopathology. 2 biopsies were sent for bacterial, fungal and AFB staining and culture. Patient tolerated the procedure well without any complications. Entire procedure was performed under airborne isolation precautions. Findings:: See the procedure note Specimens:: Bronchoalveolar lavage and transbronchial biopsy specimens Recommendations:: We will follow with the results Complications:: None Estimated blood obtained (mL): 5
--- NOTE | 2020-09-12 17:19 | HMH.ANESII ---
[facility] Anesthesia Record Part II Discharge Time: 14:35 Destination: Medical Surgical Department PACU nurse assessment reviewed?: Yes Patient Condition:: Good Anesthesia Complications:: None Swallowing reflex intact?: Yes Cyanosis?: No Blood Pressure: 122/90 Pulse Rate: 99 Temperature: 97.1 F Mental Status: Alert & Oriented Pain level:: 0 Nausea and/or vomitting:: None Intake, IV Amount: 0
--- NOTE | 2020-09-12 20:09 | PC.NURSE ---
RA SATS 89%. RETURN PT TO 2L N/C
[2020-09-13] VITALS: BP 115/62; PULSE 93; RESP 20; TEMP 36.5; O2SAT 94
--- NOTE | 2020-09-13 00:33 | PC.NURSE ---
She is A&Ox4. She continues on O2 @ 2LPM n/c. She continues in airborne precautions. Ambulates independently with a walker. Received PRN medication for abdominal pain.
[2020-09-13 03:52] VITALS: BP 104/59; PULSE 80; RESP 18; TEMP 36.7; O2SAT 98
[2020-09-13 05:52] VITALS: BMI 27.8
[2020-09-13 07:00] VITALS: O2SAT 99
[2020-09-13 08:00] VITALS: BP 111/55; PULSE 91; RESP 18; TEMP 36.7; O2SAT 95
--- NOTE | 2020-09-13 08:50 | HMH.DCSUM ---
General - General Admission date:: 09/10/20 Discharge date: 09/13/20 HPI HPI: Ms. Arriaga is a pleasant 84-year-old female with a recent diagnosis of Covid back in May. Required hospitalization at that time but has been at home since with the assistance of her daughter. Presented to the ER because of worsening abdominal pain in her left upper quadrant and persistent cough. Of note she has had a cough since her diagnosis in May of Covid. On presentation to the ER, noted to have leukocytosis and some abnormalities on chest imaging including calcified lymph nodes on chest CT and consolidated/masslike lesion right upper lobe. Admitted for possible pneumonia and further work-up of lesion on her chest. On exam this morning she complains of left upper quadrant pain is her main concern. She also reports having had cough overnight that was productive and has had some blood-tinged sputum. Denies nette fever but has had elevated temperatures for herself in the high 99's. Hospital Course Hospital Course: Patient was admitted to hospital, extensive work-up was undertaken. Patient was found to have CT scan evidence of upper lobe infiltrate suspicious for mycobacterial disease and does have a significant exposure at a young age to tuberculosis. She was placed in negative pressure flow room, and work-up was undertaken including sputum for AFB, QuantiFERON gold testing, etc. Patient had had no symptoms of sputum production or hemoptysis until after her COVID-19 infection earlier this year. Pulmonary was consulted, recommended proceeding to bronchoscopy and this was done yesterday with bronchoalveolar lavage, fungal cultures, AFB cultures and cytology sent. These results obviously will take quite a bit. Patient was also found to have a hematoma just below her left lower costal margin from coughing during her COVID-19 infection. This did not have any areas of expansion and her hemoglobin and hematocrit main stable. This was treated with analgesics and heating pads. She tolerated bronchoscopy well yesterday. This morning is doing well, eating well, moderate pain from her hematoma but otherwise is comfortable. Maintaining her oxygen at her home levels and she will be discharged home. Discharge medication will be clindamycin and levofloxacin for possible postobstructive pneumonia although I would expect this to improve nicely after bronchoscopy. Follow-up will be scheduled in our office and with pulmonology. Objective Vital signs: Temp Pulse Resp BP Pulse Ox 98.1 F 91 H 18 111/55 L 95 09/13/20 08:00 09/13/20 08:00 09/13/20 08:00 09/13/20 08:00 09/13/20 08:00 no acute distress - *Routine HEENT Exam Head: Present: normocephalic Eye: Present: EOMI, PERRL ENT: Present: mucous membranes moist - *Routine Neck Exam Present: supple - *Routine Respiratory Exam Present: rhonchi, other (Good air movement with much clearer lung exam than admission) - *Routine Cardiovascular Exam Present: RRR - *Routine Abdominal Exam Present: soft, normoactive bowel sounds, tenderness Comments: Bulge in the left upper quadrant consistent with her known hematoma and with CT scan reports. No heat, redness and minimal tenderness. - *Routine Extremities Exam Absent: cyanosis, clubbing, edema - *Routine Skin Exam Present: warm. Absent: rash - Detailed Eye Exam Eyelids: Bilateral normal inspection Results Labs on day of discharge: Preliminary micro results at discharge 09/10/20 18:45 Blood Culture - Preliminary Blood NO GROWTH AFTER 48 HOURS 09/10/20 18:45 Blood Culture - Preliminary Blood NO GROWTH AFTER 48 HOURS DS: Diagnosis - Discharge Diagnosis (1) Abdominal pain Status: Chronic (2) Cough Status: Chronic (3) Lung mass Status: Acute (4) Iron deficiency anemia Status: Chronic (5) History of COVID-19 Status: Resolved (6) Overweight (BMI 25.0-29.9) Stat
--- NOTE | 2020-09-13 08:59 | HMH.PULMPN ---
Internal Medicine - PN: Subj *Date: 09/13/20 *Time: 09:44 Interval history: No acute respiratory vents overnight. Exam - Constitutional Constitutional:: Present: no acute distress, comfortable - HENMT Exam HENMT: Present: atraumatic - Eye Exam Eyes:: Present: eyelids normal - Neck Exam Neck:: Present: normal visual inspection, thyroid normal - Respiratory Exam Respiratory:: Present: able to speak in complete sentences, no respiratory distress, normal respiratory effort, crackles - Cardiovascular Exam Cardiac:: Present: S1, S2 - GI Exam Comments: Left upper quadrant tenderness with guarding noted. - Neurological Exam Neurological: Present: alert, awake, normal cognition - Extremities Exam Extremities: Present: no cyanosis, no clubbing, no edema - Psychiatric Exam Psychiatric: Present: normal affect Assessment and Plan (1) Abdominal pain Status: Chronic Category: Medical Code(s): R10.9 - Unspecified abdominal pain (2) Cough Status: Chronic Category: Medical Code(s): R05 - Cough (3) Lung mass Status: Acute Category: Medical Code(s): R91.8 - Other nonspecific abnormal finding of lung field (4) Iron deficiency anemia Status: Chronic Category: Medical Code(s): D50.9 - Iron deficiency anemia, unspecified (5) History of COVID-19 Status: Resolved Category: Medical Code(s): Z86.16 - Personal history of COVID-19 (6) Overweight (BMI 25.0-29.9) Status: Chronic Category: Medical (7) Lung mass Status: Acute Category: Medical Code(s): R91.8 - Other nonspecific abnormal finding of lung field (8) Community acquired pneumonia Status: Acute Category: Medical Code(s): J18.9 - Pneumonia, unspecified organism - Assessment and plan all Dx Assessment and Plan for all problems:: #History of COVID-19 pneumonia: # H/O MRSA pneumonia: # Community Acquired Pneumonia: 84-year-old with no significant smoking history, carries a diagnosis COPD and recurrent pulmonary embolism with history of COVID-19 pneumonia in May 2020 but hospital for 3 days and discharged home on doxycycline for her MRSA pneumonia at the time presented to the hospital again with worsening respiratory failure along with cough and productive phlegm. Patient also complains of intermittent streaks of blood with her cough. 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 But however never tested for latent TB infection. Her daughter was treated for latent TB infection. CT chest reviewed and compared from her prior CTA from May 2020, the noted groundglass opacities improved however patient noted to have a new left upper lobe infiltrate with small internal lucencies along with left lower lobe bandlike pulmonary infiltrate / atelectasis . Patient has 1 sputum sample collected for bacterial Gram stain which is inadequate/poor sample. Given nonproductive cough patient underwent bronchoscopy on 09/13/20 with BAL and transbronchial biopsies of the right upper lobe lesion. Will follow with results. Plan: -Follow with a repeat CT chest in 6 weeks to document resolution/evaluate for underlying possible nodule from the right upper lobe lesion-we will order this during her clinic visit -Follow-up bronchoscopy results in the clinic in 5 days -Continue clindamycin and levofloxacin for a total of 10 days for possible community-acquired MRSA pneumonia and for pseudomonal coverage -Follow with TB QuantiFERON testing, serum beta glucan, galactomannan, urine histo antigen and Aspergillus IgE levels -Continue DuoNebs every 6 hours as needed, patient can be discharged on albuterol as needed -Continue current home long-term oxygen therapy at 2 L #Thank you for involving pulmonary in this patient care. Please call with any further questions or concerns
[2020-09-13 19:43] LABS: QuantiFERON-TB Gold Plus Negative (Negative)
[2020-09-13 19:44] LABS: Fungitell(Beta D-Glucan) Serum <31 pg/mL (<80)
[2020-09-14 12:59] LABS: M003-IgE Aspergillus fumigatus <0.10 kU/L (Class 0)
[2020-09-14 18:31] LABS: Histoplasma Gal'mannan Ag Ur <0.5 (<0.5 ng/mL)
[2020-09-15 08:22] LABS: Aspergillus Antigen, BAL/Serum 0.02 Index (0.00-0.49)
[2020-09-15 19:44] LABS: Aspergillus flavus Negative (Neg:<1:1); Aspergillus fumigatus Negative (Neg:<1:1); Aspergillus niger Negative (Neg:<1:1)
[2020-09-16 02:13] LABS: Blastomyces Antibody Negative (Neg:<1:1)
== END 2020-09-13 11:08 | disposition home or self-care (01) ==
LOC: ER 18:29 → 2ND 19:19
PROVIDERS: Internal Medicine Pulmonary Disease; Admitting Provider Internal Medicine Adolescent Medicine; Emergency Provider Family Medicine; PCP Internal Medicine Adolescent Medicine; Visit Provider Internal Medicine Adolescent Medicine
PROC: (CPT 31624; principal; 2020-09-12 13:00)
DX: J18.9 Pneumonia, unspecified organism (principal); R10.9 Unspecified abdominal pain; Z86.16 Personal history of COVID-19; R91.8 Other nonspecific abnormal finding of lung field; D50.9 Iron deficiency anemia, unspecified; I10 Essential (primary) hypertension; Z88.0 Allergy status to penicillin; Z88.2 Allergy status to sulfonamides; Z79.899 Other long term (current) drug therapy; J45.998 Other asthma
CPT/HCPCS: 31624; 31628; 36415; 71045; 71275; 74160; 74177; 80048; 80053; 81001; 83690; 83735; 85007; 85025; 86003; 86480; 86606; 86612; 87040; 87070; 87077; 87102; 87116; 87186; 87205; 87206; 87220; 87305; 87385; 87449; 87581; 87633; 87798; 88112; 88305; 88312; 89051; 93005; 94640; 94760; 94761; 96365; 99283; G0378; J1956; J2405; Q9967

== ENCOUNTER → 2020-10-04 12:31 | Outpatient (CLI) | payer MEDICARE, SELFPAY ==
--- NOTE | 2020-10-04 12:35 | FL_ITS ---
PROCEDURE: FL BARIUM SWALLOW MODIFIED CLINICAL INDICATION: REFLUX COMPARISON: No exams were available for comparison TECHNIQUE: Patient administered varying consistencies of barium contrast, while viewed in lateral position under real-time fluoroscopy with cine recording. FLUOROSCOPY TIME: The study was performed in conjunction with speech pathologist. Please see that report & recommendations. FINDINGS: Patient was given varying consistencies of barium. There is minimal penetration with large volume of thin. No nette tracheal aspiration.. IMPRESSION: Flash penetration with large volume of thin. Please see speech pathologist report and recommendations. Dictated by: Marcus Tellez MD 10/20/2020 17:16 Marcus Tellez MD in [facility] 10/20/2020 17:16
--- NOTE | 2020-10-04 13:55 | HMH.SLMBS2 ---
Speech & Language Evaluation Speech/Language Mod Barium Swallow Start: 10/04/20 13:38 Freq: once Status: Complete Protocol: Document 10/04/20 13:38 JORGE (Rec: 10/04/20 13:54 JORGE [id number]) General Information General Current Food Consistancy Mechanical Soft,Chopped Meats, Thin Liquids Dentition Upper & Lower Dentures Oxygen Status Nasal Cannula Facial Symmetry Symmetrical Patient Orientation Person,Place,Time Ability to Follow Directions Good Communication Ability No Impairment [facility] [place] Recommendations Diet Dietary Recommendations Mechanical Soft,Thin Liquids Mod Barium Swallow Impressions Summary and Impressions Oral Phase Impression No Impairment (WFL) Oral Phase Summary Ms. Arriaga was given the following consistencies: thins via straw and open cup, pudding, pureed, mechanical soft, regular, and pill with a thin wash. No oral phase impairments noted. Pharyngeal Phase Impression Minimal Impairment Pharyngeal Phase Summary Flash penetration noted with thins via large volume from open cup. Ms. Arriaga was educated in small sips/bites and alternating bite/sip. Speech/Language MBS Assessment/Goals/Plan Assessment Date of Evaluation: 10/04/20 Evaluation Type Initial Certification Assessment/Problems Dysphagia Does Patient Qualify for Service No Qualify/Failure Comment Ms. Arriaga was given education on compensatory strategies to improve overall swallow. Recommendations PHYSICIAN CERTIFICATION: The specified therapy services are required, authorized, and reviewed every 30 days. Dysphagia Swallow Precautions/Strategies Sitting Upright (90 deg),Small Bites and Sips,Alternate Liquids/Solids Plan Pt/Guardian verbally ack understanding Yes of dx/prognosis/goals G -code Required No Mod Barium Swallow Setup Exam Setup Radiologist Marcus Tellez Level of Consciousness Awake,Alert,Appropriate, Follows Commands Position (degrees) 90 Mod Barium Swallow-Lat View Textures Lateral View Food Presentation Thin Liquid via Cup,Thin Liquid via Straw,Pureed Food- Thick,Ground Food- Regular, Barium Tablet,Regular Food, Pudding Oral Phase Labial Closure
== END ==
PROVIDERS: PCP Internal Medicine Adolescent Medicine; Visit Provider Internal Medicine Adolescent Medicine
DX: K13.79 Other lesions of oral mucosa (principal)
CPT/HCPCS: 70371; 92611

== ENCOUNTER → 2020-10-15 11:40 | Outpatient (CLI) | payer MEDICARE, SELFPAY ==
[2020-10-15 12:11] LABS: Basophils # 0.1 K/mm3 (0-0.2); Basophils % 0.8 % (0.1-2.0); Eosinophils # 0.7 K/mm3 (0.0-0.4); Eosinophils % 12.8 % (0.1-12.0); Hematocrit 30.5 % (37.0-47.0); Hemoglobin 9.9 g/dL (12.2-16.2); Lymphocytes # 1.2 K/mm3 (0.7-4.5); Lymphocytes % 20.8 % (10-50); Mean Corpuscular HGB Conc 32.4 g/dL (31.8-35.4); Mean Corpuscular Hemoglobin 26.1 pg (27.0-31.2); Mean Corpuscular Volume 80.5 fl (81-99); Mean Platelet Volume 7.8 fl (7.4-10.4); Monocytes # 0.5 K/mm3 (0.1-1.0); Monocytes % 8.3 % (1.7-9.3); Neutrophils # 3.3 K/mm3 (1.8-7.8); Neutrophils % 57.3 % (37.0-80.0); Platelet Count 287 K/mm3 (142-424); Red Blood Count 3.79 M/mm3 (4.20-5.40); Red Cell Distribution Width 17.6 % (11.5-17.5); White Blood Count 5.7 K/mm3 (4.8-10.8)
[2020-10-15 12:42] LABS: Chloride 98 mmol/L (98-107); Potassium 4.4 mmoL/L (3.5-5.1); Sodium 134 mmol/L (136-145)
[2020-10-15 12:45] LABS: Alanine Aminotransferase 11 U/L (12-78); Albumin/Globulin Ratio 1.7 (1.1-1.8); Alkaline Phosphatase 64 U/L (38-126); Anion Gap 11.4 mEq/L (5-15); Aspartate Amino Transferase 20 U/L (14-36); Bilirubin,Total 0.3 mg/dl (0.2-1.3); Blood Urea Nitrogen 22 mg/dl (7-17); Calcium 9.7 mg/dl (8.4-10.2); Carbon Dioxide 29 mmol/L (22.0-30.0); Estimated Glomerular Filt Rate 43 ml/min (>60); GFR (African American) 52 ML/MIN (>60); Globulin 2.4 g/dL (1.3-3.2); Glucose 110 mg/dl (74-100); Magnesium 2.1 mg/dl (1.6-2.3); Total Protein,Serum 6.4 g/dl (6.3-8.2)
== END ==
PROVIDERS: Visit Provider Internal Medicine Adolescent Medicine
DX: I10 Essential (primary) hypertension (principal); D50.0 Iron deficiency anemia secondary to blood loss (chronic)
CPT/HCPCS: 36415; 80053; 83735; 85025

== ENCOUNTER → 2020-10-30 12:31 | Outpatient (CLI) | payer MEDICARE, SELFPAY ==
--- NOTE | 2020-10-30 13:54 | CT_ITS ---
PROCEDURE: CT CHEST WO CON CLINICAL INDICATION: Nodule follow up COMPARISON: CT CT ANGIO CHEST from 09/10/2020 TECHNIQUE: Axial images obtained with sagittal and coronal reformats. All CT scans at the facility use one or more dose reduction, viz: automated exposure control, ma/kV adjustment per patient size (including targeted exams where dose is matched to indication, i.e. head), or iterative reconstruction technique. FINDINGS: HEART AND MEDIASTINAL STRUCTURES: The right lobe of the thyroid gland is enlarged with a hypodense nodule posteriorly at 11 mm. There is moderate-sized hiatal hernia. No obvious mediastinal adenopathy. There are small mediastinal lymph nodes not significantly changed. Coronary artery calcifications are present. LUNGS AND PLEURAL SPACES: Peripheral right upper lobe mass 3.3 x 2.1 cm appears slightly more prominent compared to the previous study suspicious for neoplasm. The mass does abut the posterior lateral pleural surface but does not appear to extend into the chest wall. No effusions. There is some minimal spiculation of the margins of the mass. Small parenchymal opacity is present in the right upper lobe anteriorly and inferiorly and may be due to an area of atelectasis image 31. There is evidence of old granulomatous disease. There are some atelectatic/fibrotic changes in the right upper lobe posteriorly. Left lower lobe atelectatic changes are present slightly improved.. A 6 mm nodular opacity is noted in the left lower lobe may be very slightly more prominent. No effusions are evident. BONY STRUCTURES: There is a 10 mm lucency involving the right aspect of T6 vertebral body possibly due to a hemangioma. Not significantly changed. UPPER ABDOMEN: Moderate-sized hiatal hernia. The left-sided lower thoracic/upper abdominal hematoma has shown some improvement ADDITIONAL FINDINGS: No other significant abnormalities. IMPRESSION: Persistent right upper lobe mass very slightly larger compared to the previous study highly suspicious for neoplasm. No obvious mediastinal or hilar adenopathy. Mediastinal and hilar evaluation is limited without IV contrast. Other nonacute findings as described above. There is a 6 mm nodular opacity in the left lower lobe slightly more prominent of questionable clinical significance. Continued follow-up suggested. Dictated by: Marcus Tellez MD 10/31/2020 05:33 Marcus Tellez MD in [facility] 10/31/2020 05:33
== END ==
PROVIDERS: PCP Internal Medicine Adolescent Medicine; Visit Provider Internal Medicine Pulmonary Disease
DX: R91.8 Other nonspecific abnormal finding of lung field (principal)
CPT/HCPCS: 71250; 94060; 94726; 94729

== ENCOUNTER → 2020-11-22 10:23 | Outpatient (CLI) | payer MEDICARE, SELFPAY | PROVIDERS: Visit Provider Internal Medicine Gastroenterology | DX: Z01.812 Encounter for preprocedural laboratory examination (principal); Z20.822 Contact with and (suspected) exposure to COVID-19; Z12.11 Encounter for screening for malignant neoplasm of colon | CPT/HCPCS: U0003 ==

== ENCOUNTER 2020-11-23 11:51 | Day surgery (SDC) | payer MEDICARE, SELFPAY ==
[2020-11-21 13:38] VITALS: BMI 30.4
[2020-11-23 12:31] VITALS: BP 132/68; PULSE 78; RESP 18; TEMP 36.6; O2SAT 97
--- NOTE | 2020-11-23 13:26 | HMH.ANESCL ---
[facility] Anesthesia Checklist - Structural Data Admitted From: Home Planned Operative Procedure/s: colonoscopy Consent for Planned Operative Procedure(s) Verified: Yes - Additional verifications Anesthesia Reactions: No Hx Blood Transfusions: No Blood Transfusion Reaction: No - Airway Assessment C-Spine Mobility Assessed: Yes TMJ Mobility Assessed: Yes Dentition: Dentures-good fit - Neurological Assessment Level of Consciousness: Awake, Alert, Appropriate - Anesthesia Plan Anesthesia Risk discussed: Yes Anesthesia Plan: Verified ASA Class: III Anesthesia Type: MAC [facility] History I have reviewed the patient's past medical history: Yes Medical History: Reports:: Asthma, Cancer (uterus), Deep Vein Thrombosis, Depression, Gastroesophageal Reflux Disease(GERD), Hiatal Hernia, Hypertension, Lung Disease, MRSA, Palpitations, Pulmonary Embolism Denies:: Diabetes Mellitus Type 1, Diabetes Mellitus Type 2, Internal Pacemaker, Seizures *Have you ever received a pneumonia vaccine?: Yes *Have you received a flu vaccine this season?: Yes Other Medical History: Reports: Anemia, Arthritis, Cataracts, Thyroid Disease, Other. Denies: Blood Transfusion Reaction Anesthesia experience/problems:: none Laterality Cases: Right: Arthroscopy Shoulder, Bilateral: Cataract Other Surgeries: Yes: Cholecystectomy, Colonoscopy, , Hysterectomy-Total, Thyroidectomy, Other. No: Pacemaker Amputation: No Fractures: Yes (RIGHT ANKLE) - *Social History Last grade of school completed: 7th or 8th Smoking Status: Former smoker Tobacco Type: cigarettes # Packs/Day (cigarettes): 1 #Yrs smoked (if former smoker): 2 Alcohol Intake: never Substance Use Type: denies use *Occupational Status:: retired Housing: house Household Members: children *Travel in the last 8 weeks: None - Psychiatric History Pschychiatric History:: Reports:: Depression Family Hx:: Cancer, Coronary Artery Disease
--- NOTE | 2020-11-23 13:47 | P.PCN_ITS ---
[facility] Procedure Note Procedure Note:: Colonoscopy Procedure Report: Colonoscopy with cold snare polypectomy Endoscopist: Pradeep Thomas II, MD Referring physician: ANNALISE Soares/Jv Reddy MD Date of Procedure: November 23, 2020 Equipment: Olympus 190 variable stiffness pediatric colonoscope Sedation: MAC sedation Indication: Mrs. Arriaga is an 84-year-old female who is here for diagnostic colonoscopy secondary to a recent abnormal PET scan on November 12, 2020. 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 There was no evidence of metastatic disease. There was incidental hypermetabolism in the mid sigmoid colon. The patient has a history of advanced adenomatous colon polyps. She did have a 26 mm adenomatous polyp in September 2017 and her last colonoscopy in April 2018 showed no residual. The original pathology had shown adenomatous polyp with high-grade dysplasia. The patient reports no abdominal pain, rectal bleeding or change in bowel habits. She has had moderate weight loss. Procedure: Prior to the procedure, a history and physical exam was performed, and patient's medications and allergies were reviewed. The risks, benefits and alternatives of the sedation and procedure were discussed with the patient. All questions were answered and informed consent was obtained. The patient was brought to the procedure room. Patient identification and proposed procedure were verified by the physician and the nurse. The patient was placed in a left lateral decubitus position and the scope was passed under direct vision. Throughout the procedure, the patient's blood pressure, pulse, and oxygen saturations were monitored continuously. The colonoscopy was accomplished without difficulty. The patient tolerated the procedure well. Findings: On digital rectal examination there was normal rectal tone. There were no external hemorrhoids. The colonoscope was introduced through the anal canal to the rectum and advanced to the cecum. The ileocecal valve and appendiceal orifice were identified. The scope was advanced a short distance into the ileum which appeared grossly normal. The scope was then withdrawn into the colon. The prior Nadja ink site with large polyp resection was polyp free. There was an adjacent diminutive 4 mm polyp removed via cold snare polypectomy. There were 3 additional diminutive colon polyps (distal ascending (4 mm), transverse x1 (4 mm) and sigmoid x1 (4 mm)) which were all removed via cold snare polypectomy. The cecum, ascending and transverse colon and mucosa were grossly normal. There were scattered extensive diverticuli throughout the descending and sigmoid colon (LEFT colon). There was pericolonic adhesions in the sigmoid colon probably secondary to prior hysterectomy. The rectum itself was normal. Upon retroflexion within the rectum there were grade 2 internal hemorrhoids. The preparation was excellent throughout with Aylett Preparation Score of 9. The cecal time was 12 minutes. Impression: 1. Diminutive colonic polyps x4 2. Extensive left-sided diverticulosis with evidence of sigmoid pericolonic adhesions 3. Grade 2 internal hemorrhoids Plan: I suspect that the adhesions and may be some mild chronic sigmoid diverticulitis resulted in the incidental hypermetabolism on PET scan. I will follow up the polyp histology and I do not feel that she will require any further preventive colonoscopy. She will be due for diagnostic biopsy of the right lobe lung mass.
[2020-11-23 13:50] VITALS: BP 113/64; PULSE 74; RESP 18; TEMP 36.6; O2SAT 91
[2020-11-23 14:00] VITALS: BP 132/94; PULSE 75; RESP 18; O2SAT 100
[2020-11-23 14:14] VITALS: BP 151/78; PULSE 70; RESP 18; O2SAT 100
[2020-11-23 14:20] VITALS: BP 151/78; PULSE 70; RESP 18; O2SAT 99
== END 2020-11-23 14:25 | disposition home or self-care (01) ==
LOC: OUTP 11:54
PROVIDERS: PCP Internal Medicine Adolescent Medicine; Visit Provider Internal Medicine Gastroenterology
PROC: 0DJD8ZZ Inspection of Lower Intestinal Tract, Via Natural or Artificial Opening Endoscopic (ICD-10-PCS; CPT 45378; principal; 2020-11-23 13:00)
DX: K63.5 Polyp of colon (principal); K57.30 Diverticulosis of large intestine without perforation or abscess without bleeding; K64.1 Second degree hemorrhoids; K66.0 Peritoneal adhesions (postprocedural) (postinfection); Z86.010 Personal history of colon polyps; J45.909 Unspecified asthma, uncomplicated; K21.9 Gastro-esophageal reflux disease without esophagitis; I10 Essential (primary) hypertension; Z85.42 Personal history of malignant neoplasm of other parts of uterus; Z86.718 Personal history of other venous thrombosis and embolism; Z86.14 Personal history of Methicillin resistant Staphylococcus aureus infection; Z86.711 Personal history of pulmonary embolism
CPT/HCPCS: 45385; 88305

== ENCOUNTER → 2021-01-08 11:58 | Outpatient (CLI) | payer MEDICARE, SELFPAY ==
[2021-01-08 12:25] LABS: Basophils # 0.1 K/mm3 (0-0.2); Basophils % 0.7 % (0.1-2.0); Eosinophils # 0.5 K/mm3 (0.0-0.4); Eosinophils % 6.9 % (0.1-12.0); Hematocrit 29.5 % (37.0-47.0); Hemoglobin 9.9 g/dL (12.2-16.2); Lymphocytes # 1.2 K/mm3 (0.7-4.5); Lymphocytes % 15.9 % (10-50); Mean Corpuscular HGB Conc 33.6 g/dL (31.8-35.4); Mean Corpuscular Hemoglobin 28.3 pg (27.0-31.2); Mean Corpuscular Volume 84.1 fl (81-99); Mean Platelet Volume 8.2 fl (7.4-10.4); Monocytes # 0.6 K/mm3 (0.1-1.0); Monocytes % 7.9 % (1.7-9.3); Neutrophils # 5.1 K/mm3 (1.8-7.8); Neutrophils % 68.7 % (37.0-80.0); Platelet Count 345 K/mm3 (142-424); Red Cell Distribution Width 14.6 % (11.5-17.5); White Blood Count 7.4 K/mm3 (4.8-10.8)
[2021-01-08 12:37] LABS: Chloride 102 mmol/L (98-107); Potassium 4.9 mmoL/L (3.5-5.1); Sodium 134 mmol/L (136-145)
[2021-01-08 12:39] LABS: Blood Urea Nitrogen 59 mg/dl (7-17)
[2021-01-08 12:40] LABS: Alanine Aminotransferase 14 U/L (12-78); Albumin Level 4.2 g/dl (3.5-5.0); Albumin/Globulin Ratio 1.4 (1.1-1.8); Alkaline Phosphatase 82 U/L (38-126); Anion Gap 14.9 mEq/L (5-15); Aspartate Amino Transferase 17 U/L (14-36); Bilirubin,Total 0.3 mg/dl (0.2-1.3); Calcium 9.2 mg/dl (8.4-10.2); Carbon Dioxide 22 mmol/L (22.0-30.0); Estimated Glomerular Filt Rate 33 ml/min (>60); GFR (African American) 40 ML/MIN (>60); Globulin 3.1 g/dL (1.3-3.2); Glucose 141 mg/dl (74-100); Magnesium 2.3 mg/dl (1.6-2.3); Total Protein,Serum 7.3 g/dl (6.3-8.2)
== END ==
PROVIDERS: Visit Provider Internal Medicine Adolescent Medicine
DX: I10 Essential (primary) hypertension (principal); N39.46 Mixed incontinence
CPT/HCPCS: 36415; 80053; 83735; 85025

== ENCOUNTER 2021-03-02 13:09 | Emergency (ER) | payer MEDICARE, SELFPAY ==
[2021-03-02 15:00] VITALS: BP 145/76; PULSE 72; RESP 18; TEMP 36.2; O2SAT 100; BMI 31.4
--- NOTE | 2021-03-02 15:27 | HMH.EDUTC ---
[facility] [place] Clinical Impression: Exposure to COVID-19 virus Sinusitis Qualifiers: Sinusitis location: unspecified location Chronicity: unspecified Qualified Code(s): J32.9 - Chronic sinusitis, unspecified Disposition: Home, Self-Care Condition on Discharge: Good Instructions: Sinusitis, DI for Sinusitis Additional Instructions: *Monitor Temp, Over the counter Motrin or Tylenol as directed/as needed Tylenol every 4 hours and Motrin every 6 hours (as long as your family doctor has told you that you can take it) for fever or pain. and straight to ER if unable to lower temp less than 101.0 after medication given *Warm salt water gargles may help to soothe the throat *Throat Lozenges *Warm fluids like tea with honey may help to soothe the throat *Sleep elevated *Humidifier/Vaporizer Take medication as prescribed Follow up IMMEDIATELY for new or worsening symptoms or no Noticeable improvement over the next 48-72 hours. 911 for difficulty breathing or swallowing You were tested for today for COVID19 your test result should be back in the next 24-48 hours, You was given written instructions for [facility] portal you can see your results there when they come back you may check it often to see if they are done You was given a handout with instructions for Self Quarantine and Self isolation for while you wait on test results and what to do if they are positive If you are positive the Health Dept will be contacting you also Make sure to take your Vitamins Vit. C Vit D and Zinc if you can take them Referrals: Jv Reddy MD [Primary Care Provider] - As needed Time of Disposition: 15:39 Medical Decision Making - Skip Inquiry Pt receiving controlled substance: No Skip was queried for this patient: No Vital Signs: 03/02/21 15:00 Temperature 97.2 F L Temperature Source Oral Pulse Rate [Right Brachial] 72 Respiratory Rate 18 Blood Pressure [Right Arm] 145/76 H Blood Pressure Mean [Right Arm] 99 Blood Pressure Source [Right Arm] Automatic Cuff Blood Pressure Position [Right Arm] Sitting 02 Sat by Pulse Oximetry 100 Oxygen Delivery Method Room Air Orders (Tests/Meds): ORDERS Category Date Time Status Covid-19 Nasal PCR ([facility] Routine Lab 03/02/21 15:11 Received Medical Decision Narrative: Patient states that she has taken azithromycin in the past without reactions or complications medication discussed with pharmacy [facility] [place] HPI - General Stated complaint: covid symptoms/covid test Time Seen by Provider: 03/02/21 15:27 Mode of Arrival: Ambulatory Source of Information: Patient Limitations: No Limitations Description of Symptoms (Recalled from Triage Doc. by RN): COVID TEST D/T EXPOSURE. C/O DIARRHEA, CONGESTION, COUGH, AND RUNNY NOSE. HEENT Symptoms (Recalled from RN notes): Yes Resp Symptoms (Recalled from RN notes): Yes Skin Symptoms (Recalled from RN notes): No MS Symptoms (Recalled from RN notes): No Functional Status (Recalled from RN notes): WNL - History of Present Illness Provider Complaint: Patient states that she was around someone over a week ago that tested positive for COVID states that she has had a low grade fever, sinus pain and pressure, drainage and cough States that due to symptoms she wanted to get tested for COVID - Related Data Home Medications Medication Instructions Recorded Confirmed meclizine 25 mg tablet 25 mg PO DAILYP PRN tab 09/16/17 11/23/20 Metoclopramide HCl [Metoclopramide 5 mg PO DAILY 05/30/20 11/23/20 5mg Tab] Pantoprazole Sodium 40 mg PO DAILY 05/30/20 11/23/20 Ferrous Gluconate [Ferrous 324 mg PO DAILY 09/10/20 11/23/20 Gluconate 324mg Tab] Furosemide [Furosemide 40MG tAB*] 40 mg PO DAILY 09/10/20 11/23/20 Quetiapine Fumarate [Seroquel] 100 mg PO HSP PRN 09/10/20 11/23/20 Ascorbic Acid [Vitamin C] 500 mg PO DAILY 09/11/20 11/23/20 Aspirin [Aspirin 81mg chewable 81 mg PO DAILY 09/11/20 11/23/20 tab] Citalopram Hydrobromide 20 mg PO DAILY 0
[2021-03-02 15:42] VITALS: BP 145/76; PULSE 72; RESP 18; TEMP 36.2; O2SAT 100
== END 2021-03-02 15:50 | disposition home or self-care (01) ==
PROVIDERS: Emergency Provider Nurse Practitioner Family; PCP Internal Medicine Adolescent Medicine
DX: J32.9 Chronic sinusitis, unspecified (principal); Z20.822 Contact with and (suspected) exposure to COVID-19; J45.909 Unspecified asthma, uncomplicated; K21.9 Gastro-esophageal reflux disease without esophagitis; I10 Essential (primary) hypertension; Z79.899 Other long term (current) drug therapy
CPT/HCPCS: G0463; 99202; U0003

== ENCOUNTER 2021-07-09 16:49 | Emergency (ER) | payer MEDICARE, SELFPAY ==
--- NOTE | 2021-07-09 17:02 | XR_ITS ---
PROCEDURE INFORMATION: Exam: XR Chest Exam date and time: 07/09/2021 5:02 PM Age: 85 years old Clinical indication: Cough TECHNIQUE: Imaging protocol: XR of the chest. Views: 1 view. COMPARISON: CT CHEST WO CON 10/30/2020 1:55 PM FINDINGS: Lungs: Unremarkable. No consolidation. Pleural spaces: Unremarkable. No pleural effusion. No pneumothorax. Heart/Mediastinum: Hiatal hernia. No cardiomegaly. Vasculature: Tortuosity of the thoracic aorta. Bones/joints: No acute findings. Postoperative change in the proximal right humerus. IMPRESSION: No acute findings.
[2021-07-09 17:18] VITALS: BP 204/104; PULSE 64; RESP 20; TEMP 37.1; O2SAT 98; BMI 23.6
--- NOTE | 2021-07-09 17:37 | HMH.EDGENADL ---
ED Disposition Clinical Impression: Generalized weakness, Poor appetite Disposition: Home, Self-Care Condition on Discharge: Good Instructions: DI for Muscle Weakness Referrals: Jv Reddy MD [Primary Care Provider] - - Critical Care Critical Care Time: No Attestation: On 07/09/21, the high probability of a clinically significant, sudden or life threatening deterioration of the following system(s) required my full and direct attention, intervention and personal management. The time I documented below is in addition to time spent performing reported procedures but includes the following listed in this critical care notation. Medical Decision Making - Medical Records Medical records reviewed: Yes: I reviewed the patient's medical records. - Skip Inquiry Pt receiving controlled substance: No Vital Signs: 07/09/21 17:18 Temperature 98.7 F Temperature Source Oral Pulse Rate [Left Radial] 64 Respiratory Rate 20 Blood Pressure [Right Arm] 204/104 H Blood Pressure Mean [Right Arm] 137 02 Sat by Pulse Oximetry 98 Oxygen Delivery Method Nasal Cannula Oxygen Flow Rate (LPM) 2 - Lab Data Lab Results 07/09/21 18:20: WBC 7.7, RBC 4.29, Hgb 11.5 L, Hct 36.9 L, MCV 86.1, MCH 26.8 L, MCHC 31.2 L, RDW 15.9, Plt Count 195, MPV 8.8, Neut % (Auto) 70.4, Lymph % (Auto) 16.9, [place] % (Auto) 7.6, Eos % (Auto) 2.7, Baso % (Auto) 2.4 H, Neut # (Auto) 5.4, Lymph # (Auto) 1.3, [place] # (Auto) 0.6, Eos # (Auto) 0.2, Baso # (Auto) 0.2 07/09/21 18:20: Sodium 130 L, Potassium 4.4, Chloride 95 L, Carbon Dioxide 26, Anion Gap 13.4, BUN 13, Creatinine 0.80, Estimated Creat Clear 46, Estimated GFR 68, Est GFR ( Amer) 82, Glucose 99, Calcium 9.0, Total Bilirubin 0.5, AST 29, ALT 18, Alkaline Phosphatase 108, Troponin I < 0.01, Total Protein 6.7, Albumin 3.9, Globulin 2.8, Albumin/Globulin Ratio 1.4 07/09/21 18:20: SARS-CoV-2 (PCR) Not detected, Influenza A Untype (PCR) Not detected, Influenza Type B (PCR) Not detected 07/09/21 18:20: NT-Pro-B Natriuret Pep 522 H Result diagrams: 07/09/21 18:20 07/09/21 18:20 Orders (Tests/Meds): ED MEDICATIONS Discontinued Medications Generic Name Dose Route Start Last Admin Trade Name Freq PRN Reason Stop Dose Admin Hydralazine HCl 20 mg 07/09/21 17:36 Hydralazine 20mg/Ml Vial IV 07/09/21 17:37 ONCE ONE ORDERS Category Date Time Status Troponin I Q3H Lab 07/09/21 20:15 Ordered Troponin I Q3H Lab 07/09/21 23:15 Ordered Urinalysis and Microscopic Stat Lab 07/09/21 17:02 Ordered - Radiology Data #1 Image(s): Chest Image Reviewed: Yes I reviewed the patient's radiology results, Yes I reviewed the patient's radiology image, Yes I have reviewed radiologist's interpretation Preliminary Findings: Normal/NAD - Reevaluation(s) Time: 19:34 Reevaluation #1: On reevaluation, the patient is feeling much better. Laboratory work is relatively benign. Patient's blood pressure is significantly improved she is hemodynamically stable at this point. At this time I do not see any reason to admit the patient to the hospital. She was encouraged to increase her oral intake at home. She is to follow-up with primary care physician in 24 hours. Given strict return precautions. Verbalized understanding. Medical Decision Narrative: 85-year-old female presented to the emergency department with some generalized weakness. Patient has a longstanding history of past medical history. She appears to be presenting with just some weakness and failure to thrive. Overall the patient appears appropriate. She is saturating well on her normal home oxygen requirements. Work-up initiated. General Adult HPI - General Chief complaint: Weakness Stated complaint: has not eaten in 2 wk Time Seen by Provider: 07/09/21 17:25 Mode of Arrival: Wheelchair Limitations: No Limitations Description of Symptoms (Recalled from ER Triage Doc. by RN): pt to ed c/o weakness and loss of appeti
--- NOTE | 2021-07-09 18:26 | PC.NURSE ---
v/s delayed due to attempted IV access
[2021-07-09 18:31] LABS: Coronavirus 19, PCR Not Detected (NotDetected); Influenza A, PCR Not Detected (NotDetected); Influenza B, PCR Not Detected (NotDetected)
[2021-07-09 18:34] LABS: Basophils # 0.2 K/mm3 (0-0.2); Basophils % 2.4 % (0.1-2.0); Eosinophils # 0.2 K/mm3 (0.0-0.4); Eosinophils % 2.7 % (0.1-12.0); Hematocrit 36.9 % (37.0-47.0); Hemoglobin 11.5 g/dL (12.2-16.2); Lymphocytes # 1.3 K/mm3 (0.7-4.5); Lymphocytes % 16.9 % (10-50); Mean Corpuscular HGB Conc 31.2 g/dL (31.8-35.4); Mean Corpuscular Hemoglobin 26.8 pg (27.0-31.2); Mean Corpuscular Volume 86.1 fl (81-99); Mean Platelet Volume 8.8 fl (7.4-10.4); Monocytes # 0.6 K/mm3 (0.1-1.0); Monocytes % 7.6 % (1.7-9.3); Neutrophils # 5.4 K/mm3 (1.8-7.8); Neutrophils % 70.4 % (37.0-80.0); Platelet Count 195 K/mm3 (142-424); Red Blood Count 4.29 M/mm3 (4.20-5.40); Red Cell Distribution Width 15.9 % (11.5-17.5); White Blood Count 7.7 K/mm3 (4.8-10.8)
[2021-07-09 18:47] LABS: Chloride 95 mmol/L (98-107)
[2021-07-09 18:48] LABS: Potassium 4.4 mmoL/L (3.5-5.1); Sodium 130 mmol/L (136-145)
[2021-07-09 18:50] LABS: Alanine Aminotransferase 18 U/L (12-78); Alkaline Phosphatase 108 U/L (38-126); Aspartate Amino Transferase 29 U/L (14-36); Bilirubin,Total 0.5 mg/dl (0.2-1.3); Blood Urea Nitrogen 13 mg/dl (7-17); Creatinine Clearance Estimated 46 mL/min (50-200); Estimated Glomerular Filt Rate 68 ml/min (>60); GFR (African American) 82 ML/MIN (>60)
[2021-07-09 18:51] LABS: Albumin Level 3.9 g/dl (3.5-5.0); Albumin/Globulin Ratio 1.4 (1.1-1.8); Anion Gap 13.4 mEq/L (5-15); Carbon Dioxide 26 mmol/L (22.0-30.0); Globulin 2.8 g/dL (1.3-3.2); Glucose 99 mg/dl (74-100); Total Protein,Serum 6.7 g/dl (6.3-8.2)
--- NOTE | 2021-07-09 18:51 | PC.NURSE ---
still attempting IV access
[2021-07-09 19:00] LABS: NT Pro Brain Natriuretic Pep. 522 pg/mL (0-450)
[2021-07-09 19:03] LABS: Troponin I < 0.01 ng/ml (0.00-0.034)
[2021-07-09 20:05] VITALS: BP 122/78; PULSE 62; RESP 20; TEMP 37.1; O2SAT 98
== END 2021-07-09 20:07 | disposition home or self-care (01) ==
PROVIDERS: Emergency Provider Emergency Medicine; PCP Internal Medicine Adolescent Medicine
DX: R53.83 Other fatigue (principal); R63.0 Anorexia; J44.9 Chronic obstructive pulmonary disease, unspecified; I10 Essential (primary) hypertension; K21.9 Gastro-esophageal reflux disease without esophagitis; F33.1 Major depressive disorder, recurrent, moderate; Z87.891 Personal history of nicotine dependence; Z20.822 Contact with and (suspected) exposure to COVID-19
CPT/HCPCS: 71045; 80053; 83880; 84484; 85025; 99282; C9803; U0003; U0005

== ENCOUNTER → 2021-09-23 17:20 | Outpatient (CLI) | payer MEDICARE, SELFPAY | PROVIDERS: Visit Provider Internal Medicine Adolescent Medicine | DX: L89.90 Pressure ulcer of unspecified site, unspecified stage (principal) | CPT/HCPCS: 87070; 87077; 87186; 87205 ==

== ENCOUNTER 2021-09-26 13:58 | Emergency (ER) | payer MEDICARE, SELFPAY ==
[2021-09-26] VITALS (9 sets, daily range): BP systolic 150–179; BP diastolic 72–104; PULSE 67–92; RESP 14–20; TEMP 36.6–36.7; O2SAT 92–99; BMI 23.6
--- NOTE | 2021-09-26 14:02 | HMH.EDNVD ---
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, stage 4 Disposition: Home, Self-Care Condition on Discharge: Good Instructions: DI for Hypokalemia, Nausea and Vomiting-Adult Additional Instructions: follow up PCP and wound care next week Prescriptions: Ondansetron [Zofran 4mg ODT] 4 mg PO TIDP PRN #15 tab PRN Reason: Nausea And Vomiting Transmission Status: Pending to [id number] Referrals: Jv Reddy MD [Primary Care Provider] - - Critical Care Critical Care Time: No Attestation: On , the high probability of a clinically significant, sudden or life threatening deterioration of the following system(s) required my full and direct attention, intervention and personal management. The time I documented below is in addition to time spent performing reported procedures but includes the following listed in this critical care notation. Medical Decision Making - Medical Records Medical records reviewed: Yes: I reviewed the patient's medical records. - Skip Inquiry Pt receiving controlled substance: No Vital Signs: 09/26/21 13:59 09/26/21 14:31 09/26/21 15:01 Temperature 98.0 F Temperature Source Oral Pulse Rate 67 79 Pulse Rate [Left Radial] 87 Respiratory Rate 20 18 18 Blood Pressure 161/86 H 160/81 H Blood Pressure [Right Arm] 161/86 H Blood Pressure Mean 111 101 Blood Pressure Mean [Right Arm] 111 Blood Pressure Source [Right Arm] Automatic Cuff Blood Pressure Position [Right Arm] Sitting 02 Sat by Pulse Oximetry 97 96 99 Oxygen Delivery Method Room Air Nasal Cannula Nasal Cannula Oxygen Flow Rate (LPM) 2 2 09/26/21 15:30 09/26/21 16:00 09/26/21 16:30 Temperature Temperature Source Pulse Rate 75 79 82 Pulse Rate [Left Radial] Respiratory Rate 14 Blood Pressure 170/92 H 166/92 H 152/72 H Blood Pressure [Right Arm] Blood Pressure Mean 118 125 132 Blood Pressure Mean [Right Arm] Blood Pressure Source [Right Arm] Blood Pressure Position [Right Arm] 02 Sat by Pulse Oximetry 98 Oxygen Delivery Method Oxygen Flow Rate (LPM) 09/26/21 17:00 09/26/21 17:32 Temperature Temperature Source Pulse Rate 80 92 H Pulse Rate [Left Radial] Respiratory Rate 16 16 Blood Pressure 179/99 H 172/104 H Blood Pressure [Right Arm] Blood Pressure Mean 125 116 Blood Pressure Mean [Right Arm] Blood Pressure Source [Right Arm] Blood Pressure Position [Right Arm] 02 Sat by Pulse Oximetry 98 92 L Oxygen Delivery Method Oxygen Flow Rate (LPM) - Lab Data Lab Results 09/26/21 14:27: WBC 7.3, RBC 3.70 L, Hgb 10.5 L, Hct 32.4 L, MCV 87.4, MCH 28.3, MCHC 32.4, RDW 17.3, Plt Count 421, MPV 8.6, Neut % (Auto) 62.3, Lymph % (Auto) 26.1, [place] % (Auto) 7.5, Eos % (Auto) 3.1, Baso % (Auto) 1.0, Neut # (Auto) 4.6, Lymph # (Auto) 1.9, [place] # (Auto) 0.6, Eos # (Auto) 0.2, Baso # (Auto) 0.1 09/26/21 14:27: Sodium 132 L, Potassium 2.5 L*, Chloride 94 L, Carbon Dioxide 36 H, Anion Gap 4.5 L, BUN 10, Creatinine 0.70, Estimated Creat Clear 40, Estimated GFR 79, Est GFR ( Amer) 96, Glucose 89, Calcium 7.7 L, Total Bilirubin 0.5, AST 27, ALT 15, Alkaline Phosphatase 97, Total Protein 5.4 L, Albumin 2.8 L, Globulin 2.6, Albumin/Globulin Ratio 1.1, Lipase 144 09/26/21 14:27: SARS-CoV-2 (PCR) Not detected, Influenza A Untype (PCR) Not detected, Influenza Type B (PCR) Not detected 09/26/21 17:15: Urine Color Yellow, Urine Appearance Clear, Urine pH 6.0, Ur Specific [place] <= 1.005, Urine Protein Negative, Urine Glucose (UA) Negative, Urine Ketones Negative, Urine Blood Negative, Urine Nitrate Negative, Urine Bilirubin Negative, Urine Urobilinogen 0.2, Ur Leukocyte Esterase Negative, Urine RBC None, Urine WBC 3-5, Ur Squa
[2021-09-26 14:57] LABS: Basophils # 0.1 K/mm3 (0-0.2); Eosinophils # 0.2 K/mm3 (0.0-0.4); Eosinophils % 3.1 % (0.1-12.0); Hematocrit 32.4 % (37.0-47.0); Hemoglobin 10.5 g/dL (12.2-16.2); Lymphocytes # 1.9 K/mm3 (0.7-4.5); Lymphocytes % 26.1 % (10-50); Mean Corpuscular HGB Conc 32.4 g/dL (31.8-35.4); Mean Corpuscular Hemoglobin 28.3 pg (27.0-31.2); Mean Corpuscular Volume 87.4 fl (81-99); Mean Platelet Volume 8.6 fl (7.4-10.4); Monocytes # 0.6 K/mm3 (0.1-1.0); Monocytes % 7.5 % (1.7-9.3); Neutrophils # 4.6 K/mm3 (1.8-7.8); Neutrophils % 62.3 % (37.0-80.0); Platelet Count 421 K/mm3 (142-424); Red Cell Distribution Width 17.3 % (11.5-17.5); White Blood Count 7.3 K/mm3 (4.8-10.8)
[2021-09-26 15:04] LABS: Chloride 94 mmol/L (98-107); Sodium 132 mmol/L (136-145)
[2021-09-26 15:06] LABS: Alanine Aminotransferase 15 U/L (12-78); Aspartate Amino Transferase 27 U/L (14-36); Blood Urea Nitrogen 10 mg/dl (7-17); Coronavirus 19, PCR Not Detected (NotDetected); Creatinine Clearance Estimated 40 mL/min (50-200); Estimated Glomerular Filt Rate 79 ml/min (>60); GFR (African American) 96 ML/MIN (>60); Influenza A, PCR Not Detected (NotDetected); Influenza B, PCR Not Detected (NotDetected)
[2021-09-26 15:07] LABS: Albumin Level 2.8 g/dl (3.5-5.0); Albumin/Globulin Ratio 1.1 (1.1-1.8); Alkaline Phosphatase 97 U/L (38-126); Anion Gap 4.5 mEq/L (5-15); Bilirubin,Total 0.5 mg/dl (0.2-1.3); Calcium 7.7 mg/dl (8.4-10.2); Carbon Dioxide 36 mmol/L (22.0-30.0); Globulin 2.6 g/dL (1.3-3.2); Glucose 89 mg/dl (74-100); Lipase 144 U/L (23-300); Total Protein,Serum 5.4 g/dl (6.3-8.2)
[2021-09-26 15:24] LABS: Potassium 2.5 mmoL/L (3.5-5.1)
--- NOTE | 2021-09-26 15:30 | PC.NURSE ---
aware of potassium
--- NOTE | 2021-09-26 15:55 | CT_ITS ---
PROCEDURE INFORMATION: Exam: CT Abdomen And Pelvis With Contrast Exam date and time: 09/26/2021 4:12 PM Age: 85 years old Clinical indication: Vomiting; Abdominal pain; Generalized; Additional info: N/v, constipation TECHNIQUE: Imaging protocol: Computed tomography of the abdomen and pelvis with contrast. Radiation optimization: All CT scans at this facility use at least one of these dose optimization techniques: automated exposure control; mA and/or kV adjustment per patient size (includes targeted exams where dose is matched to clinical indication); or iterative reconstruction. Contrast material: ISOVUE; Contrast volume: 75 ml; Contrast route: IV; COMPARISON: CT ABDOMEN PELVIS W CON 09/10/2020 4:26 PM FINDINGS: Diaphragm: Moderate hiatal hernia. Liver: Normal. No mass. Gallbladder and bile ducts: Cholecystectomy. The biliary ectasia. Pancreas: Mild atrophy of the pancreas. Spleen: Normal. No splenomegaly. Adrenal glands: Normal. No mass. Kidneys and ureters: 1.5 cm left renal simple cyst. Stomach and bowel: No bowel obstruction or abscess. Appendix: Appendix is not visualized and may be absent. Intraperitoneal space: Unremarkable. No free air. No significant fluid collection. Vasculature: Moderate atherosclerosis. Lymph nodes: Unremarkable. No enlarged lymph nodes. Urinary bladder: Unremarkable as visualized. Reproductive: Hysterectomy. Bones/joints: No acute fracture. Moderate osteoarthritis. Mild scoliosis. Soft tissues: Unremarkable. Other findings: Limited diverticulosis. No other acute disease seen. As above. IMPRESSION: 1. Moderate hiatal hernia. 2. No bowel obstruction or abscess. 3. No other acute disease seen. As above. COMMENTS: Consistent with the [place] [employer]'s Incidental Findings Committee white paper (J Am Carmen Radiol 2018): Any incidental renal lesion less than 1 cm or classified as too small to characterize, or any incidental cystic renal lesion characterized as simple-appearing, is likely benign. No follow-up imaging is recommended for these lesions per consensus recommendations based on imaging criteria.
--- NOTE | 2021-09-26 16:23 | PC.WOUNDNOTE ---
Patient back from CT with RAD techs x 2 by stretcher
[2021-09-26 17:19] LABS: Microscopic, Urine URINE MICROSCOPIC (MICROSCOPIC)
[2021-09-26 17:44] LABS: Appearance,Urine CLEAR (Clear); Bilirubin,Urine Negative (Negative); Blood, Urine Negative (Negative); Color,Urine YELLOW (Yellow); Glucose,Urine (UA) Negative (Negative); Ketones,Urine Negative (Negative); Leukocyte Esterase,Urine Negative (Negative); Nitrate,Urine Negative (Negative); Protein,Urine Negative (Negative); Specific Gravity, Urine <= 1.005 (1.005-1.030); Urobilinogen,Urine 0.2 EU/dl (0.2)
[2021-09-26 18:02] LABS: Bacteria,Urine 3+ /lpf
== END 2021-09-26 18:48 | disposition home or self-care (01) ==
PROVIDERS: Emergency Provider Emergency Medicine; PCP Internal Medicine Adolescent Medicine
DX: E87.6 Hypokalemia (principal); L89.304 Pressure ulcer of unspecified buttock, stage 4; K21.9 Gastro-esophageal reflux disease without esophagitis; I10 Essential (primary) hypertension; Z79.899 Other long term (current) drug therapy; Z88.0 Allergy status to penicillin; Z88.2 Allergy status to sulfonamides
CPT/HCPCS: 74177; 80053; 81001; 83690; 85025; 87086; 87088; 87186; 96365; 96375; 99284; C9803; J2405; Q9967; U0003; U0005

== ENCOUNTER → 2021-10-04 15:07 | Outpatient (CLI) | payer MEDICARE, SELFPAY ==
--- NOTE | 2021-10-04 15:24 | CT_ITS ---
FINAL REPORT CLINICAL HISTORY: FALLS,FREQUENTLY falls x 3 times this week , left eye bruising 100 ml os isovue 370 given FINDINGS: Axial images through the facial bones and sinuses was performed without and with contrast. Sagittal coronal reformatted images were obtained and reviewed. Low-dose technique was utilized. There are fractures involving the left anterior and posterolateral maxillary sinus gaming. Fracture extends to the left inferior orbital rim. There is a fracture of the left lateral orbital wall. Small intraorbital air is identified. The extraocular muscles and globes appear intact. There is a small amount of fluid in the left maxillary sinus, may represent hemorrhage. There is mild left maxillary mucosal thickening. There is an area of soft tissue in the left orbit and face. Left supraorbital scalp hematoma is identified. There is no evidence of contrast enhancement. IMPRESSION: Multiple fractures as detailed above. Fluid in the left maxillary sinus, may represent hemorrhage. Area of soft tissue air in the left orbit and face. Small amount of intraorbital air. Reviewed, Interpreted and Dictated by Gopi De Jesus III, MD Transcribed by Whitley Mahoney Authenticated by Gopi De Jesus III, MD on 10/04/2021 04:36:16 PM [facility]
[2021-10-04 15:36] LABS: Blood Urea Nitrogen 12 mg/dl (7-17); Estimated Glomerular Filt Rate 59 ml/min (>60); GFR (African American) 72 ML/MIN (>60)
== END ==
PROVIDERS: PCP Internal Medicine Adolescent Medicine; Visit Provider Internal Medicine Adolescent Medicine
DX: R29.6 Repeated falls (principal)
CPT/HCPCS: 36415; 70488; 82565; 84520; Q9967

== ENCOUNTER 2021-11-04 14:00 | Outpatient (RCR) | payer MEDICARE, SELFPAY ==
--- NOTE | 2021-09-23 18:08 | HMH.PTOPWND ---
Rehab Outpt Wound Evaluation Rehab OP Wound Evaluation Start: 09/23/21 17:58 Freq: Status: Active Protocol: Document 09/23/21 17:58 PWSHELLIE (Rec: 09/23/21 18:08 PWSHELLIE [id number]) Electronically Signed By Gurmeet Roman, DEBORAH 09/23/21 17:58 Subjective/History History History This is the initial wound clinic evaluation for Yudith Arriaga. Pt is a85 y/o female referred to wound care for non -healing sacral ulcer. Pt's family states she had COVID and was in hospital for extended time. Pt developed stage I's but never complete skin breakdown. Family states pt has been weak since hospitalizations and has had falls at home. They state she fell and caught her bottom on the corner of her TV tray and caused this wound. Since then wound has become infected and non-healing. Subjective Subjective Pt has c/o difficulty and pain w/ movement, transfers, and is mostly non-ambulatory at home Wound Eval Wound Left Sacrum Wound Type Pressure Ulcer Wound Staging Unstageable Query Text:Stage I - Unbroken, red skin, no blanching. Stage II - Skin broken, superficial skin loss involving epidermis alone or also dermis. Partial loss of skin layers. Stage III - Pressure area involves epidermis, dermis and subcutaneous tissue, full thickness skin loss. Stage IV - Pressure area involves epidermis, subcutaneous tissue, bone and other supportive tissue. Full thickness skin loss with extensive destruction of underlying tissue and structures. Wound Length (cm) 5.0 Wound Width (cm) 3.0 Wound Depth (cm) 2.0 Wound Bed Appearance Yellow,Bucio,Slough,Necrotic, Undermining,Tunneling Percentage Granulated (%) 0 Percentage of Slough (%) 100 Percentage of Eschar (Yellow) (%) 80 Percentage of Necrosis ([place]) (%) 20 Wound Margins Description Roll Under Edges Undermining Position 6-12 Undermining Length (cm) 3.0 Undermining Width (cm) 2.5 Undermining Depth (c
== END 2021-11-04 14:05 | disposition home or self-care (01) ==
LOC: PT 14:00
PROVIDERS: PCP Internal Medicine Adolescent Medicine; Visit Provider Internal Medicine Adolescent Medicine
DX: L89.153 Pressure ulcer of sacral region, stage 3 (principal)
CPT/HCPCS: 97163; 97164; 97597

== ENCOUNTER → 2021-11-29 15:28 | Outpatient (CLI) | payer MEDICARE, SELFPAY ==
--- NOTE | 2021-11-29 15:36 | XR_ITS ---
FINAL REPORT CLINICAL HISTORY: COPD WITH CHRONIC BRONCHITIS, pt states there is pain with exertion on the anterior right side of the the chest. COMPARISON: 07/09/2021 FINDINGS: TWO-VIEW CHEST The heart size is normal. The mediastinum is normal. There is a moderate hiatal hernia. There are mild bibasilar opacities, favor atelectasis. Postoperative changes seen in the right shoulder. There is no pneumothorax. IMPRESSION: Bibasilar opacities, favor atelectasis. Reviewed, Interpreted and Dictated by Gopi De Jesus III, MD Transcribed by Whitley Mahoney Authenticated and [facility]
== END ==
PROVIDERS: PCP Internal Medicine Adolescent Medicine; Visit Provider Internal Medicine Adolescent Medicine
DX: J44.9 Chronic obstructive pulmonary disease, unspecified (principal)
CPT/HCPCS: 71046

== ENCOUNTER 2022-01-29 14:37 | Emergency (ER) | payer MEDICARE, SELFPAY ==
--- NOTE | 2022-01-29 15:06 | HMH.EDUTC ---
[facility] Disposition Clinical Impression: COVID-19 Disposition: Home, Self-Care Condition on Discharge: Good Instructions: DI for COVID-19 (Suspected or Confirmed ), Preventing the Spread of Coronavirus Discharge Instructions Additional Instructions: Drink plenty of fluids. Take tylenol or ibuprofen for pain or fever. Take the medications as directed. Follow up with your regular doctor. GO TO THE ER FOR ANY WORSENING SYMPTOMS Prescriptions: Benzonatate [Benzonatate 100mg cap] 100 mg PO TIDP PRN #30 cap PRN Reason: Cough Transmission Status: Received by [facility] levoFLOXacin [Levaquin 500mg tab] 500 mg PO DAILY #7 tab Transmission Status: Pending to [facility] methylPREDNISolone [Medrol] 4 mg PO DIRECTED 6 Days #21 packet Transmission Status: Received by [facility] Referrals: Jv Reddy MD [Primary Care Provider] - Time of Disposition: 16:00 Medical Decision Making - Medical Records Medical records reviewed: No: I reviewed the patient's medical records. - Skip Inquiry Pt receiving controlled substance: No Vital Signs: 01/29/22 15:25 Temperature 98.9 F Temperature Source Oral Pulse Rate [Left] 86 Respiratory Rate 16 Blood Pressure [Right Arm] 149/86 H Blood Pressure Mean [Right Arm] 107 02 Sat by Pulse Oximetry 97 Orders (Tests/Meds): ORDERS Category Date Time Status Chest XR 2 view (NOT portable) [XR chest 2V] Stat Exams 01/29/22 15:16 Taken Covid-19 Nasal PCR ([facility]) Routine Lab 01/29/22 15:11 Received - Radiology Data #1 Image(s): Chest Image Reviewed: Yes I reviewed the patient's radiology image, Yes I have reviewed radiologist's interpretation Preliminary Findings: No Infiltrates Seen [facility] HPI - General Stated complaint: Coughing, shortness breath Time Seen by Provider: 01/29/22 15:06 - History of Present Illness Provider Complaint: She tested positive for covid-19 1 week ago. She is here today to be checked for pneumonia. - Related Data Home Medications Medication Instructions Recorded Confirmed meclizine 25 mg tablet 25 mg PO DAILYP PRN tab 09/16/17 10/10/21 Metoclopramide HCl [Metoclopramide 5 mg PO DAILY 05/30/20 10/10/21 5mg Tab] Pantoprazole Sodium 40 mg PO DAILY 05/30/20 10/10/21 Ferrous Gluconate [Ferrous 324 mg PO DAILY 09/10/20 10/10/21 Gluconate 324mg Tab] Furosemide [Furosemide 40MG tAB*] 40 mg PO DAILY 09/10/20 10/10/21 Ascorbic Acid [Vitamin C] 500 mg PO DAILY 09/11/20 10/10/21 Aspirin [Aspirin 81mg chewable 81 mg PO DAILY 09/11/20 10/10/21 tab] Cyanocobalamin (Vitamin B-12) 1,000 mcg PO DAILY 09/11/20 10/10/21 [Vitamin B-12 1000mcg Tablet] Ergocalciferol (Vitamin D2) 50,000 unit PO WEEKLY 09/11/20 10/10/21 [Vitamin D2] Famotidine [Acid Controller] 20 mg PO BID 09/11/20 10/10/21 Ipratropium/Albuterol Sulfate 1 puff IH QID 09/11/20 10/10/21 [Combivent Respimat Inh] Magnesium 250 mg PO DAILY 09/11/20 10/10/21 Potassium Gluconate [Potassium] 595 mg PO DAILY 09/11/20 10/10/21 Vitamin E 400 unit PO DAILY 09/11/20 10/10/21 Zinc 50 mg PO DAILY 09/11/20 10/10/21 lisinopriL [Lisinopril] 10 mg PO DAILY 09/11/20 10/10/21 Fluticasone/Vilanterol [Breo 1 inh INHALATION DAILY 11/23/20 10/10/21 Ellipta] levoFLOXacin [Levaquin 500mg 500 mg PO DAILY 11/23/20 10/10/21 tab] citalopram 40 mg tablet 40 mg PO DAILY tab 10/10/21 10/10/21 hydrocodone 10 mg-acetaminophen 1 tab PO DAILY tab 10/10/21 10/10/21 325 mg tablet quetiapine 25 mg tablet 25 mg PO DAILY tab 10/10/21 10/10/21 Previous Rx's Medication Instructions Recorded Ipratropium/Albuterol Sulfate 3 ml IH Q4HP PRN 30 Days #100 06/04/20 [Duoneb 3mL neb] ampul.neb Sennosides/Docusate Sodium 1 tab PO DAILYP PRN 14 Days #14 tab 06/04/20 [Senokot-S Tablet] albuterol sulfate 90 mcg/actuation 1 inh INHALATION QID PRN #8.5 g 10/31/20 aerosol inhaler Ondansetron [Zofran 4mg O
--- NOTE | 2022-01-29 15:16 | XR_ITS ---
FINAL REPORT CLINICAL HISTORY: COVID x 1 wk, SOA w CP worsened. Hx COPD COMPARISON: November 29, 2021 FINDINGS: Two views of the chest were obtained. The heart size and pulmonary vascularity are within normal limits. There is a moderate hiatal hernia. There is mild right upper lobe and left lung base opacity. There is no pneumothorax. Postoperative changes are seen in the right shoulder. IMPRESSION: Mild right upper lobe and left base opacity may represent pneumonia. Reviewed, Interpreted and Dictated by Gopi De Jesus III, MD Transcribed by Nicolas Zhu Authenticated and [facility]
[2022-01-29 15:25] VITALS: BP 149/86; PULSE 86; RESP 16; TEMP 37.2; O2SAT 97; BMI 23.9
[2022-01-29 16:05] VITALS: BP 149/86; PULSE 86; RESP 16; TEMP 37.2
== END 2022-01-29 16:06 | disposition home or self-care (01) ==
PROVIDERS: Emergency Provider Nurse Practitioner Family; PCP Internal Medicine Adolescent Medicine
DX: U07.1 COVID-19 (principal); Z87.891 Personal history of nicotine dependence
CPT/HCPCS: 71046; 99212; C9803; G0463; U0003; U0005

== ENCOUNTER → 2022-03-21 14:40 | Outpatient (CLI) | payer MEDICARE, SELFPAY ==
--- NOTE | 2022-03-21 14:43 | CT_ITS ---
FINAL REPORT CLINICAL HISTORY: PULMONARY EMBOLISM,PNEUMONIA OF RT UPPER LOBE FINDINGS: Axial images were obtained from the lung apex to the mid abdomen by computed tomography. Coronal reformatted images were obtained. This study was performed with techniques to keep radiation doses as low as reasonably achievable, (ALARA). Individualized dose reduction techniques using automated exposure control or adjustment of mA and/or kV according to the patient's size were employed. Cannot evaluate for pulmonary embolism in the absence of intravenous contrast. There is no axillary adenopathy. There is no hilar or mediastinal adenopathy. Heart size is normal. There is no pericardial or pleural effusion. Limited images of the upper abdomen demonstrate a moderate to large hiatal hernia. The gallbladder is surgically absent. The previously identified right upper lobe mass has decreased in size now measuring 2.4 x 1.4 cm. There may be a 2nd nodule in the posterior right upper lobe measuring 6 mm on image 30 of series 2. IMPRESSION: Interval decrease in size in the right upper lobe mass. Moderate to large hiatal hernia. Reviewed, Interpreted and Dictated by Julián Garcia MD Transcribed by Nicolas Zhu Authenticated and [facility]
== END ==
PROVIDERS: PCP Internal Medicine Adolescent Medicine; Visit Provider Internal Medicine Adolescent Medicine
DX: J15.212 Pneumonia due to Methicillin resistant Staphylococcus aureus (principal); I26.09 Other pulmonary embolism with acute cor pulmonale
CPT/HCPCS: 71250

== ENCOUNTER → 2022-11-20 12:00 | Outpatient (CLI) | payer MEDICARE, SELFPAY | PROVIDERS: PCP Physician Assistant; Visit Provider Physician Assistant | DX: R05.9 Cough, unspecified (principal); B96.29 Other Escherichia coli [E. coli] as the cause of diseases classified elsewhere | CPT/HCPCS: 87070; 87077; 87186; 87205 ==

== ENCOUNTER 2022-11-26 09:51 | Outpatient (CLI) | payer MEDICARE, SELFPAY ==
--- NOTE | 2022-11-26 11:00 | PC.NURSE ---
Verified w/ D DANIELLA Urias that it was okay for pt to have midline vs PICC line d/t pt needing IV abx for 10 days. Approval given. Educated pt and daughter on midline, questions answered appropriately. Pt taken to procedure room, time out performed. Pt tolerated procedure well. Teaching about midline given to pt.
[2022-11-26 11:26] VITALS: BMI 24.7
[2022-11-26 11:43] VITALS: BP 137/71; PULSE 81; RESP 18; TEMP 36.6; O2SAT 97
[2022-11-26 11:56] LABS: Chloride 98 mmol/L (98-107); Potassium 3.8 mmoL/L (3.5-5.1); Sodium 140 mmol/L (136-145)
[2022-11-26 11:59] LABS: Anion Gap 10.8 mEq/L (5-15); Blood Urea Nitrogen 30 mg/dl (7-17); Calcium 8.9 mg/dl (8.4-10.2); Carbon Dioxide 35 mmol/L (22.0-30.0); Creatinine Clearance Estimated 31 mL/min (50-200); Estimated Glomerular Filt Rate 39 ml/min (>60); GFR (African American) 47 ML/MIN (>60); Glucose 64 mg/dl (74-100)
[2022-11-26 12:29] VITALS: BP 134/80; PULSE 84; RESP 18; O2SAT 97
== END 2022-11-26 12:29 | disposition home or self-care (01) ==
LOC: INF 09:52
PROVIDERS: PCP Physician Assistant; Visit Provider Physician Assistant
DX: R05.3 Chronic cough (principal); B96.20 Unspecified Escherichia coli [E. coli] as the cause of diseases classified elsewhere; Z16.20 Resistance to unspecified antibiotic
CPT/HCPCS: 36410; 80048; 96365; J1335

== ENCOUNTER 2022-11-27 14:07 | Outpatient (CLI) | payer MEDICARE, SELFPAY ==
[2022-11-27 14:40] VITALS: BP 132/76; PULSE 74; RESP 18; O2SAT 98
[2022-11-27 15:20] VITALS: BP 134/73; PULSE 73; RESP 18
== END 2022-11-27 15:20 | disposition home or self-care (01) ==
LOC: INF 14:08
PROVIDERS: PCP Physician Assistant; Visit Provider Physician Assistant
DX: R05.3 Chronic cough (principal); B96.20 Unspecified Escherichia coli [E. coli] as the cause of diseases classified elsewhere; Z16.20 Resistance to unspecified antibiotic
CPT/HCPCS: 96365; J1335

== ENCOUNTER 2022-11-28 13:33 | Outpatient (CLI) | payer MEDICARE, SELFPAY ==
[2022-11-28 13:33] VITALS: BP 107/50; PULSE 59; RESP 18; O2SAT 97
[2022-11-28 14:43] VITALS: BP 110/54; PULSE 61
== END 2022-11-28 14:46 | disposition home or self-care (01) ==
LOC: INF 13:34
PROVIDERS: PCP Physician Assistant; Visit Provider Physician Assistant
DX: R05.3 Chronic cough (principal); B96.20 Unspecified Escherichia coli [E. coli] as the cause of diseases classified elsewhere; Z16.20 Resistance to unspecified antibiotic
CPT/HCPCS: 96365

== ENCOUNTER 2022-11-29 12:22 | Outpatient (CLI) | payer MEDICARE, SELFPAY ==
[2022-11-29 12:48] VITALS: BMI 24.7
== END 2022-11-29 13:18 | disposition home or self-care (01) ==
LOC: INF 12:25
PROVIDERS: PCP Physician Assistant; Visit Provider Physician Assistant
DX: R05.3 Chronic cough (principal); B96.20 Unspecified Escherichia coli [E. coli] as the cause of diseases classified elsewhere; Z16.20 Resistance to unspecified antibiotic
CPT/HCPCS: 96365; J1335

== ENCOUNTER 2022-11-30 13:03 | Outpatient (CLI) | payer MEDICARE, SELFPAY ==
[2022-11-30 13:17] VITALS: BMI 24.6
== END 2022-11-30 13:59 | disposition home or self-care (01) ==
LOC: INF 13:04
PROVIDERS: PCP Physician Assistant; Visit Provider Physician Assistant
DX: R05.3 Chronic cough (principal); B96.20 Unspecified Escherichia coli [E. coli] as the cause of diseases classified elsewhere; Z16.20 Resistance to unspecified antibiotic
CPT/HCPCS: 96365; J1335

== ENCOUNTER 2022-12-01 12:54 | Outpatient (CLI) | payer MEDICARE, SELFPAY ==
[2022-12-01 13:25] VITALS: BP 128/76; PULSE 81; RESP 16; TEMP 36.4; O2SAT 98
[2022-12-01 13:33] LABS: Anion Gap 9.8 mEq/L (5-15); Blood Urea Nitrogen 29 mg/dl (7-17); Calcium 8.4 mg/dl (8.4-10.2); Carbon Dioxide 34 mmol/L (22.0-30.0); Chloride 98 mmol/L (98-107); Estimated Glomerular Filt Rate 42 ml/min (>60); GFR (African American) 51 ML/MIN (>60); Glucose 127 mg/dl (74-100); Potassium 3.8 mmoL/L (3.5-5.1); Sodium 138 mmol/L (136-145)
[2022-12-01 14:10] VITALS: BP 132/75; PULSE 80; RESP 16; TEMP 36.4; O2SAT 98
== END 2022-12-01 14:15 | disposition home or self-care (01) ==
LOC: INF 12:55
PROVIDERS: PCP Physician Assistant; Visit Provider Physician Assistant
DX: R05.3 Chronic cough (principal); B96.20 Unspecified Escherichia coli [E. coli] as the cause of diseases classified elsewhere; Z16.20 Resistance to unspecified antibiotic
CPT/HCPCS: 80048; 96365; J1335

== ENCOUNTER 2022-12-02 13:35 | Outpatient (CLI) | payer MEDICARE, SELFPAY ==
[2022-12-02 14:00] VITALS: BP 144/83; PULSE 87; RESP 19; O2SAT 97
[2022-12-02 14:53] VITALS: BP 113/83; PULSE 88; RESP 18
== END 2022-12-02 14:54 | disposition home or self-care (01) ==
LOC: INF 13:36
PROVIDERS: PCP Physician Assistant; Visit Provider Physician Assistant
DX: R05.3 Chronic cough (principal); B96.20 Unspecified Escherichia coli [E. coli] as the cause of diseases classified elsewhere; Z16.20 Resistance to unspecified antibiotic
CPT/HCPCS: 96365; J1335

== ENCOUNTER 2022-12-03 13:17 | Outpatient (CLI) | payer MEDICARE, SELFPAY ==
[2022-12-03 13:45] VITALS: BP 132/64; PULSE 82; RESP 16; O2SAT 98
[2022-12-03 14:15] VITALS: BP 121/71; PULSE 80; RESP 16
== END 2022-12-03 14:40 | disposition home or self-care (01) ==
LOC: INF 13:18
PROVIDERS: PCP Physician Assistant; Visit Provider Physician Assistant
DX: R05.3 Chronic cough (principal); B96.20 Unspecified Escherichia coli [E. coli] as the cause of diseases classified elsewhere; Z16.20 Resistance to unspecified antibiotic
CPT/HCPCS: 96365; J1335

== ENCOUNTER 2022-12-04 13:18 | Outpatient (CLI) | payer MEDICARE, SELFPAY ==
[2022-12-04 13:38] VITALS: BP 115/76; PULSE 90; RESP 19; O2SAT 96
[2022-12-04 14:30] VITALS: BP 119/73; PULSE 86; RESP 18; O2SAT 97
== END 2022-12-04 14:30 | disposition home or self-care (01) ==
LOC: INF 13:19
PROVIDERS: PCP Physician Assistant; Visit Provider Physician Assistant
DX: R05.3 Chronic cough (principal); B96.20 Unspecified Escherichia coli [E. coli] as the cause of diseases classified elsewhere; Z16.20 Resistance to unspecified antibiotic
CPT/HCPCS: 96365; J1335

== ENCOUNTER 2022-12-05 12:54 | Outpatient (CLI) | payer MEDICARE, SELFPAY ==
[2022-12-05 13:07] VITALS: BP 130/82; PULSE 82; RESP 16; TEMP 36.5; O2SAT 100
[2022-12-05 13:50] VITALS: BP 133/79; PULSE 79; RESP 16; TEMP 36.5; O2SAT 100
== END 2022-12-05 13:55 | disposition home or self-care (01) ==
LOC: INF 12:54
PROVIDERS: PCP Physician Assistant; Visit Provider Physician Assistant
DX: R05.3 Chronic cough (principal); B96.20 Unspecified Escherichia coli [E. coli] as the cause of diseases classified elsewhere; Z16.20 Resistance to unspecified antibiotic
CPT/HCPCS: 96365; G0463; J1335

== ENCOUNTER → 2023-01-12 09:26 | Outpatient (CLI) | payer MEDICARE, SELFPAY ==
--- NOTE | 2023-01-12 09:57 | XR_ITS ---
FINAL REPORT CLINICAL HISTORY: belching, hiatal hernia COMPARISON: chest 01/29/2022 FINDINGS: A PA view of the chest was obtained. The cardiac and mediastinal silhouettes are within normal limits. The lungs are clear. Stable hiatal hernia. There is no free air beneath the diaphragm. Upright and supine views of the abdomen reveal a large amount of stool The bowel gas pattern is otherwise unremarkable. There is no evidence of small bowel obstruction. Calcification projected over the left SI joint could be a phlebolith or ureteral stone. No acute osseous abnormalities identified. IMPRESSION: No acute intrathoracic abnormality. Large amount of stool with unre Reviewed, Interpreted and Dictated by Mercedes Espinoza MD Transcribed by Maritza Romero Authenticated and [facility]
[2023-01-13 16:13] LABS: H. pylori Breath Test Negative (Negative)
== END ==
LOC: LAB 09:28
PROVIDERS: PCP Physician Assistant; Visit Provider Physician Assistant
DX: K44.9 Diaphragmatic hernia without obstruction or gangrene (principal); R10.32 Left lower quadrant pain; R11.0 Nausea
CPT/HCPCS: 74021; 83013

== ENCOUNTER → 2023-03-09 09:53 | Outpatient (CLI) | payer MEDICARE, SELFPAY ==
--- NOTE | 2023-03-09 10:12 | NM_ITS ---
FINAL REPORT TECHNIQUE: Sequential anterior images were obtained after the ingestion of 2 whole eggs, 1 piece of toast, and 1 cup of water radiolabeled with 0.51 mCi technetium 99M sulfur colloid. CLINICAL HISTORY: BLOATING, hernia COMPARISON: None FINDINGS: GASTRIC EMPTYING SCAN Static images show normal emptying of the stomach into the small bowel. Based on the time activity curve, the estimated half-emptying time is 73 minutes, within normal limits. IMPRESSION: Normal gastric emptying study. Reviewed, Interpreted and Dictated by Gopi De Jesus III, MD Transcribed by Maritza Romero Authenticated and [facility]
== END ==
LOC: RAD 09:54
PROVIDERS: PCP Physician Assistant; Visit Provider Nurse Practitioner Family
DX: K44.9 Diaphragmatic hernia without obstruction or gangrene (principal); R14.0 Abdominal distension (gaseous)
CPT/HCPCS: 78264; A9541

== ENCOUNTER → 2023-03-16 10:41 | Outpatient (CLI) | payer MEDICARE, SELFPAY ==
--- NOTE | 2023-03-16 10:46 | FL_ITS ---
FINAL REPORT CLINICAL HISTORY: HIATAL HERNIAW/O OBSTRUCTION 2:12 DAP:1910.33 FINDINGS: UPPER GI EXAM HISTORY: Dysphagia. Hiatal hernia. PROCEDURE: The patient ingested barium. 25 fluoroscopic films were obtained. Fluoro time: 2 minutes 12 seconds Total DAP: 1910.33 uGycm2. FINDINGS: Examination is somewhat limited due to patient's mobility. Incidental note is made of a prominent cricopharyngeal muscle. Esophagus is tortuous with marked dysmotility. There is a [id number] hiatal hernia. No gastroesophageal reflux was demonstrated during the exam. The stomach empties appropriately. The duodenal bulb is unremarkable. The rugal fold pattern of the stomach is normal. The duodenal bulb is normal. IMPRESSION: Tortuous esophagus with marked esophageal dysmotility. Small to moderate hiatal hernia. Films reviewed , interpreted and dictated by Dr. Garcia. Transcribed by Issa Fung PA-C. Reviewed, Interpreted and Dictated by Julián Garcia MD Transcribed by DANIELLA Ash Authenticated and . [facility]
== END ==
LOC: RAD 10:41
PROVIDERS: PCP Physician Assistant; Visit Provider Nurse Practitioner Family
DX: K44.9 Diaphragmatic hernia without obstruction or gangrene (principal)
CPT/HCPCS: 74240; 74246

== ENCOUNTER → 2023-03-19 13:47 | Outpatient (CLI) | payer MEDICARE, SELFPAY ==
[2023-03-19 14:56] LABS: Basophils # 0.1 K/mm3 (0-0.2); Basophils % 0.6 % (0.1-2.0); Eosinophils # 0.3 K/mm3 (0.0-0.4); Eosinophils % 2.9 % (0.1-12.0); Hematocrit 39.3 % (37.0-47.0); Hemoglobin 12.6 g/dL (12.2-16.2); Lymphocytes # 1.8 K/mm3 (0.7-4.5); Lymphocytes % 17.8 % (10-50); Mean Corpuscular Hemoglobin 28.6 pg (27.0-31.2); Mean Corpuscular Volume 89.4 fl (81-99); Mean Platelet Volume 8.1 fl (7.4-10.4); Monocytes # 0.8 K/mm3 (0.1-1.0); Monocytes % 7.7 % (1.7-9.3); Neutrophils # 7.1 K/mm3 (1.8-7.8); Platelet Count 368 K/mm3 (142-424); Red Cell Distribution Width 13.9 % (11.5-17.5)
[2023-03-19 15:15] LABS: Chloride 100 mmol/L (98-107)
[2023-03-19 15:16] LABS: Potassium 4.6 mmoL/L (3.5-5.1); Sodium 140 mmol/L (136-145)
[2023-03-19 15:18] LABS: Alanine Aminotransferase 36 U/L (12-78); Anion Gap 12.6 mEq/L (5-15); Aspartate Amino Transferase 38 U/L (14-36); Bilirubin,Unconjugated 0.2 mg/dL (0.0-1.1); Blood Urea Nitrogen 35 mg/dl (7-17); Carbon Dioxide 32 mmol/L (22.0-30.0); Cholesterol 201 mg/dl (140-200); Estimated Glomerular Filt Rate 42 ml/min (>60); GFR (African American) 51 ML/MIN (>60); Triglycerides 303 mg/dl (30-150); VLDL Cholesterol 61 mg/dL (0-40)
[2023-03-19 15:19] LABS: Albumin Level 4.4 g/dl (3.5-5.0); Alkaline Phosphatase 86 U/L (38-126); Bilirubin,Direct 0.4 mg/dl (0.0-0.4); Bilirubin,Indirect 0.2 mg/dL (0.0-0.9); Bilirubin,Total 0.6 mg/dl (0.2-1.3); Calcium 9.1 mg/dl (8.4-10.2); Chol/HDL Ratio 3.5 (1-3.5); Glucose 91 mg/dl (74-100); HDL Cholesterol 58 mg/dl (40-60); Magnesium 2.5 mg/dl (1.6-2.3); Total Protein,Serum 7.7 g/dl (6.3-8.2)
[2023-03-19 15:30] LABS: Direct LDL Cholesterol 82.46 mg/dL (100-129)
[2023-03-19 15:36] LABS: Free T4 (Free Thyroxine) 1.01 ng/dl (0.78-2.19)
[2023-03-19 15:49] LABS: Thyroid Stimulating Hormone 2.68 uIU/mL (0.465-4.68)
== END ==
LOC: LAB 13:48
PROVIDERS: PCP Physician Assistant; Visit Provider Nurse Practitioner
DX: I48.0 Paroxysmal atrial fibrillation (principal); R94.31 Abnormal electrocardiogram [ECG] [EKG]; Z01.810 Encounter for preprocedural cardiovascular examination; Z86.711 Personal history of pulmonary embolism; E66.9 Obesity, unspecified
CPT/HCPCS: 80048; 80061; 80076; 83735; 84439; 84443; 85025; 93270

== ENCOUNTER → 2023-03-25 11:04 | Outpatient (CLI) | payer MEDICARE, SELFPAY ==
--- NOTE | 2023-03-25 11:04 | NM_ITS ---
APPROVED REPORT Exam: Nuclear Stress Test Indication: PRE-OP..FATIGUE..PALPITATIONS..SOA Patient Location: Outpatient Stress Tech: Anjali Coppola HI Tech:Lorenza Kendall OTISStephanie RT(R)(N) Ht: 5 ft 2 in Wt: 168 lbs Bra Size: 38C HR: 97 bpm BP: 137/75 mmHg BSA: 1.78 m2 Rhythm: NSR TID: 0.83 BMI: 30.7 History: PRE-OP..FATIGUE..PALPITATIONS..SOA Procedure: Patient received 0.4 mg of intravenous Lexiscan, resting heart rate 97 bpm, resting blood pressure 137/75 mmHg, with Lexiscan maximum heart rate achieved was 104 bpm which is 85 % of the maximum predicted heart rate and blood pressure was 143/68 mmHg. With Lexiscan, patient denied any complaint of chest pain. She was not able to lay on her abdomen for prone images. Cardiac Stress and Resting SPECT Images: Cardiac Stress and Resting SPECT images were obtained using technetium 99m Myoview 32.5 mCi stress and 10.79 mCi at rest. The patient could not lie on her abdomen. Therefore, prone stress imaging could not be performed. This may affect the diagnostic interpretation of the study findings. Resting and stress imaging in supine position demonstrate no evidence of fixed or reversible perfusion defects. Gated imaging demonstrates normal global and regional LV systolic function. LVEF is calculated at > 75%. Conclusion: No evidence of fixed or reversible perfusion defects. Gated imaging demonstrates normal global and regional LV systolic function. LVEF is calculated at > 75%. Electronically signed by : Shima Atkinson MD 03/28/2023 23:48:16
--- NOTE | 2023-03-25 14:58 | CA_ITS ---
APPROVED REPORT Exam: Pharmacologic Technologist: Anjali Coppola Ht: 5 ft 4 in Wt: 165 lbs BSA: 1.80 m2 HR: 95 bpm BP: 137/75 mmHg Rhythm: NSR Indications: CP, Dyspnea, AFib Medical History Medications: Asa,,,,, Pantoprazole,,,,, Buspirone,,,,, Combivent,,,,, Albuterol,,,,, Calcium,,,,, Famotidine,,,,, Vit C,,,,, Prednisone,,,,, Vit B12,,,,, BenzONATATE,,,,, Quetiapine,,,,, Stress Test Details Test: LEXISCAN HR Resting HR: 97 bpm Max Heart Rate (APMHR): 132 bpm Max HR Achieved: 104 bpm Target HR (85% APMHR): 112 bpm % of APMHR: 79 Recovery HR: 91 bpm BP Resting BP: 137.0/75.0 mmHg Max BP: 143.0/68.0 mmHg Recovery BP: 138.0/70.0 mmHg ECG Resting ECG: Normal Sinus Rhythm Stress ECG: No significant ST changes Arrhythmia: PACs brief sinus pause < 2 seconds Clinical Exercise duration: 04:00 min Highest Stage Achieved: Exercise capacity: 1.0 METs Stress ECG Conclusion Symptoms: Mild right arm heaviness. No chest pain. Arrhythmias/Ectopy: Rare PAC. One sinus pause lasting < [address]-T Changes: No significant ST changes Conclusion: Unremarkable Lexiscan stress test. Myoview images are reported separately. Test Summary REST . . . . . . . Resting REST 03:36 . . 97 . 137/ 75 . . Stage 1 . . . . . . . Myoview Injected Stage 1 01:00 . . 99 . . . . Stage 2 01:00 . . 98 . . . . Stage 3 01:00 . . 94 . 143/ 68 . . Stage 4 01:00 . . 95 . 138/ 72 . Stop exercise at 04:00 RECOVERY 01:00 . . 92 . . . . RECOVERY 02:00 . . 96 . 141/ 67 . . RECOVERY 03:00 . . 91 . 138/ 70 . . RECOVERY 03:20 . . 93 . 138/ 70 . . Electronically signed by : Shima Atkinson MD 03/28/2023 23:46:07
== END ==
LOC: RAD 11:04
PROVIDERS: PCP Physician Assistant; Visit Provider Nurse Practitioner
DX: I48.0 Paroxysmal atrial fibrillation (principal); R94.31 Abnormal electrocardiogram [ECG] [EKG]; Z01.810 Encounter for preprocedural cardiovascular examination; Z86.711 Personal history of pulmonary embolism
CPT/HCPCS: 78452; 93017; A9502; J2785

== ENCOUNTER → 2023-04-14 11:08 | Outpatient (CLI) | payer MEDICARE, SELFPAY ==
--- NOTE | 2023-04-14 11:08 | CA_ITS ---
APPROVED REPORT EXAM: Comprehensive 2D, Doppler, and color-flow Echocardiogram Natural Resources Professor: Chelsy Juarez RT(R) Ht: 5 ft 3 in Wt: 165lbs BSA: 1.78 BP: 142/86 mmHg Indications: CP, ex smoker, COPD, pre op for hernia repair, hx PE's, abn EKG, AFIB, VARGAS. Echo Enhancing Agent Indication: Cardiac Mass Agent(s) / Amount(s) Used: Definity 2 cc 2D Dimensions LVOT 1.81 cm (M/F) 1.5-2.5 M-Mode Dimensions RVDd 2.38 cm (0.9-2.6) LA Diam 2.33 cm (1.9-4.0) LVDd 4.19 cm (3.5-5.7) Ao Diam 2.48 cm (2.0-3.7) LVDs 3.28 cm (3.5-5.7) IVSd 0.72 cm (0.6-1.1) PWd 0.69 cm (0.6-1.1) EF (Teich) 44.30% FS 21.70% EDV (Teich) 78.10 mL ESV (Teich) 43.50 mL LV Diastology E Decel Time 173.00 (160-240 msec) E/A Ratio 1.2 MED E' 6.60 (< 7 cm/sec) E'/MED E' Ratio 15.27 (>14) LAT E' 5.50 (<10 cm/sec) E/LAT E' Ratio 18.33 (>14) Mitral Valve MV E Max Sudeep. 101.00 (40-130 cm/s) MV A Velocity 81.00 (40-130 cm/s) E/A Ratio 1.24 MV Decel. Time 173.00 (160-240 ms) MV PHT 51.00 ms Tricuspid Valve TR P. Velocity 312.00 cm/s RAP Estimate 15.00 mmHg RVSP 53.80 mmHg Left Ventricle The left ventricle is normal size. The left ventricular systolic function is normal. The left ventricular ejection fraction is within the normal range. There is increased LV wall thickness. Diastolic function is indeterminate. There is normal LV segmental wall motion. No left ventricle thrombus noted on this study. LVEF is 60%. Right Ventricle The right ventricle is normal size. The right ventricular systolic function is normal. Atria The left atrium is mildly dilated. There is a large, discrete, rounded, fixed echodensity noted in the left atrial cavity and connected to the mid posterior LA wall. The echodensity measures approximately 2.4 x 2.4 cm in its largest dimensions. The right atrium size is normal. There is no Doppler evidence of interatrial shunt. Aortic Valve The aortic valve is mildly thickened. There is no aortic valvular stenosis. Mild to moderate aortic regurgitation. Mitral Valve The mitral valve leaflets are mildly thickened. No evidence of mitral valve stenosis. Trace mitral regurgitation. Tricuspid Valve The tricuspid valve leaflets are thin and pliable. Mild tricuspid regurgitation. RVSP is 35-40 mmHg. Pulmonic Valve The pulmonary valve is grossly normal in structure. Trace pulmonic regurgitation. Great Vessels The aortic root is normal in size. The ascending aorta is normal in size. IVC is normal in size and collapses >50% with inspiration. Pericardium There is no pericardial effusion. Other Information Study Quality: Fair Conclusion Normal LV size with normal biventricular systolic function. Mild to moderate aortic regurgitation. Mild LA dilatation. Large, discrete, rounded, fixed echodensity noted in the left atrial cavity and connected to the mid posterior LA wall. The echodensity measures approximately 2.4 x 2.4 cm in its largest dimensions. TTE is unable to distinguish whether this echodensity is a true LA mass versus artifact. Further evaluation is recommended (e.g. CHRISTIANO). Electronically signed by : Shima Atkinson MD 04/17/2023 22:03:46
== END ==
LOC: RT 11:08
PROVIDERS: PCP Physician Assistant; Visit Provider Nurse Practitioner
DX: I48.0 Paroxysmal atrial fibrillation (principal); R94.31 Abnormal electrocardiogram [ECG] [EKG]; Z01.810 Encounter for preprocedural cardiovascular examination; Z86.711 Personal history of pulmonary embolism
CPT/HCPCS: 93306; Q9957

== ENCOUNTER 2023-04-27 08:33 | Day surgery (SDC) | payer MEDICARE, SELFPAY ==
[2023-04-23 17:21] VITALS: BMI 30.3
[2023-04-27] VITALS (8 sets, daily range): BP systolic 124–148; BP diastolic 67–78; PULSE 84–97; RESP 14–20; TEMP 36.5–36.6; O2SAT 96–99
--- NOTE | 2023-04-27 | CA_ITS ---
APPROVED REPORT EXAM: Comprehensive 2D, Doppler, and color-flow Echocardiogram Tabulating Machine Mechanic: RT Svetlana(R) Ht: 5 ft 4 in Wt: 165lbs BSA: 1.80 BP: 142/65 mmHg Indications: AFIB, mass seen in LT atrium TTE, CP, ex smoker, VARGAS, hx PE Procedure After obtaining informed consent, patient underwent transesophageal echo in the [facility]. Type of Sedation : MAC Sedation was administered by Antony rTejo C.R.N.A. Sedation start time: 11:20 Case end Time: 11:45 Propofol (350) Transesophageal probe was inserted and advanced into esophagus without difficulty by Dr. Nirmal Atkinson. The CHRISTIANO was performed without complications. Throughout the procedure, the blood pressure, pulse oximetry, cardiac rhythm, and rate were monitored. The patient tolerated the procedure without adverse effects. Recovery from conscious sedation was uneventful and vital signs were stable. Left Ventricle The left ventricle is normal size. The left ventricular systolic function is normal. The left ventricular ejection fraction is within the normal range. There is normal left ventricular wall thickness. There is normal LV segmental wall motion. Transmitral Doppler flow pattern suggests impaired LV relaxation. LVEF is 60%. Right Ventricle The right ventricle is normal size. The right ventricular systolic function is normal. Atria Left atrium is mildly dilated. There is no evidence of LA mass. No thrombus is visualized in the left atrium or appendage. The right atrium size is normal. Aortic Valve The aortic valve is mildly thickened. There is no aortic valvular stenosis. Mild aortic regurgitation. Mitral Valve The mitral valve leaflets are mildly thickened. No evidence of mitral valve stenosis. Trace mitral regurgitation. Tricuspid Valve The tricuspid valve leaflets are thin and pliable. Mild tricuspid regurgitation. RVSP is 7 mmHg + RA pressure. Pulmonic Valve The pulmonary valve is normal in structure. Trace pulmonic regurgitation. Great Vessels The aortic root is normal in size. The ascending aorta is normal in size. Pericardium There is no pericardial effusion. Other Information Study Quality: Technically Difficult Conclusion This was a technically difficult CHRISTIANO due to the narrow acoustic windows and heart rotation. Normal biventricular systolic function. No evidence of LA or ALESSANDRO mass or thrombus. Mild AI. Electronically signed by : Shima Atkinson MD 04/27/2023:27:38
--- NOTE | 2023-04-27 09:35 | ECG_ITS ---
APPROVED REPORT Exam: Resting ECG HR:93 bpm ECG Measurements Heart Rate 93 AXES PA 136 P 30 QRSd 98 QRS -10 QT 381 T 7 QTc 432 Conclusion SINUS RHYTHM NORMAL ECG UNCONFIRMED REPORT Electronically signed by : Amauri Lockwood MD 04/27/2023 20:18:57
[2023-04-27 09:41] LABS: Basophils % 0.4 % (0.1-2.0); Eosinophils # 0.5 K/mm3 (0.0-0.4); Eosinophils % 4.4 % (0.1-12.0); Hemoglobin 13.1 g/dL (12.2-16.2); Lymphocytes # 0.7 K/mm3 (0.7-4.5); Lymphocytes % 6.2 % (10-50); Mean Corpuscular HGB Conc 34.5 g/dL (31.8-35.4); Mean Corpuscular Hemoglobin 30.2 pg (27.0-31.2); Mean Corpuscular Volume 87.6 fl (81-99); Mean Platelet Volume 8.4 fl (7.4-10.4); Monocytes # 0.5 K/mm3 (0.1-1.0); Monocytes % 4.7 % (1.7-9.3); Neutrophils # 9.5 K/mm3 (1.8-7.8); Neutrophils % 84.3 % (37.0-80.0); Platelet Count 249 K/mm3 (142-424); Red Blood Count 4.34 M/mm3 (4.20-5.40); Red Cell Distribution Width 13.7 % (11.5-17.5); White Blood Count 11.2 K/mm3 (4.8-10.8)
[2023-04-27 09:44] LABS: Chloride 102 mmol/L (98-107); Potassium 4.1 mmoL/L (3.5-5.1); Sodium 139 mmol/L (136-145)
[2023-04-27 09:47] LABS: Anion Gap 10.1 mEq/L (5-15); Blood Urea Nitrogen 24 mg/dl (7-17); Calcium 8.6 mg/dl (8.4-10.2); Carbon Dioxide 31 mmol/L (22.0-30.0); Creatinine Clearance Estimated 31 mL/min (50-200); Estimated Glomerular Filt Rate 33 ml/min (>60); GFR (African American) 40 ML/MIN (>60); Glucose 134 mg/dl (74-100)
[2023-04-27 09:50] LABS: INR 0.96 (0.9-1.1); Prothrombin Time 10.4 seconds (10.1-12.5)
--- NOTE | 2023-04-27 10:49 | EXP.ANES.CKL ---
[facility] Disclaimer: The information contained in this section may have been updated after the patient was seen, as this information can be updated by other users. Medical History Abnormal electrocardiogram [ECG] [EKG] Acute respiratory failure with hypoxia Encounter for pre-operative cardiovascular clearance Hypokalemia Lumbar spondylosis Lung mass Paroxysmal A-fib Pneumonia due to COVID-19 virus Pulmonary emboli Surgical History H/O section H/O shoulder surgery History of thyroidectomy S/P LASIK surgery of both eyes Family History Other No significant family history Social History Smoking Status: Former smoker tobacco type: cigarettes packs per day: 1 how long ago did patient quit smoking: Pt stopped smoke aprox 62 years ago. second hand exposure: Yes alcohol intake: never substance use type: denies use current occupational status: retired Travel in the last 8 weeks: None household members: children housing: house current occupation: home health caffeine: Yes [facility] Anesthesia Checklist Patient Identification Patient Identification: Arm Band Structural Data Admitted From: Home Planned Operative Procedure/s: CHRISTIANO Consent for Planned Operative Procedure(s) Verified: Yes Verified Documents: Surgical Consent and History and Physical NPO Status Verified Time NPO: 00:00 Additional verifications Anesthesia Reactions: No Hx Blood Transfusions: No Blood Transfusion Reaction: No Airway Assessment Mallampati Score:: Class II C-Spine Mobility Assessed: Yes TMJ Mobility Assessed: Yes Dentition: Poor Dentition Neurological Assessment Level of Consciousness: Awake and Alert Anesthesia Plan Anesthesia Risk discussed: Yes Anesthesia Plan: Verified ASA Class: III Anesthesia Type: MAC
== END 2023-04-27 12:26 | disposition home or self-care (01) ==
PROVIDERS: PCP Physician Assistant; Visit Provider Internal Medicine
DX: I48.0 Paroxysmal atrial fibrillation (principal); R93.1 Abnormal findings on diagnostic imaging of heart and coronary circulation
CPT/HCPCS: 80048; 85025; 85610; 93005; 93312

== ENCOUNTER → 2023-05-13 16:08 | Outpatient (CLI) | payer MEDICARE, SELFPAY ==
[2023-05-13 17:08] LABS: Anion Gap 13.5 mEq/L (5-15); Blood Urea Nitrogen 27 mg/dl (7-17); Calcium 9.3 mg/dl (8.4-10.2); Carbon Dioxide 31 mmol/L (22.0-30.0); Chloride 97 mmol/L (98-107); Estimated Glomerular Filt Rate 47 ml/min (>60); GFR (African American) 57 ML/MIN (>60); Glucose 110 mg/dl (74-100); Potassium 4.5 mmoL/L (3.5-5.1); Sodium 137 mmol/L (136-145)
[2023-05-13 17:12] LABS: NT Pro Brain Natriuretic Pep. 458 pg/mL (0-450)
== END ==
PROVIDERS: PCP Physician Assistant; Visit Provider Internal Medicine
DX: I48.0 Paroxysmal atrial fibrillation (principal); R06.00 Dyspnea, unspecified; R07.9 Chest pain, unspecified; R94.31 Abnormal electrocardiogram [ECG] [EKG]; Z01.810 Encounter for preprocedural cardiovascular examination; I50.9 Heart failure, unspecified
CPT/HCPCS: 80048; 83880

== ENCOUNTER → 2023-05-27 12:49 | Outpatient (CLI) | payer MEDICARE, SELFPAY ==
[2023-05-27 13:36] LABS: Chloride 97 mmol/L (98-107); Potassium 4.1 mmoL/L (3.5-5.1); Sodium 139 mmol/L (136-145)
[2023-05-27 13:39] LABS: Anion Gap 10.1 mEq/L (5-15); Blood Urea Nitrogen 32 mg/dl (7-17); Carbon Dioxide 36 mmol/L (22.0-30.0); Estimated Glomerular Filt Rate 42 ml/min (>60); GFR (African American) 51 ML/MIN (>60); Glucose 123 mg/dl (74-100)
[2023-05-27 13:47] LABS: NT Pro Brain Natriuretic Pep. 282 pg/mL (0-450)
== END ==
PROVIDERS: PCP Physician Assistant; Visit Provider Internal Medicine
DX: I48.0 Paroxysmal atrial fibrillation (principal); I50.9 Heart failure, unspecified; R06.00 Dyspnea, unspecified; R07.9 Chest pain, unspecified; R94.31 Abnormal electrocardiogram [ECG] [EKG]; Z01.810 Encounter for preprocedural cardiovascular examination
CPT/HCPCS: 80048; 83880; 87070; 87205

== ENCOUNTER 2023-07-22 21:24 | Outpatient (CLI) | payer MEDICARE, SELFPAY ==
[2023-07-22 23:19] LABS: Amphetamine/Metha Screen,Urine Negative ng/ml (<1000); Barbiturates Screen,Urine Negative ng/ml (<200)
[2023-07-22 23:20] LABS: Benzodiazepines Screen,Urine Negative ng/ml (<200)
[2023-07-22 23:21] LABS: Cannabinoid Screen,Urine Negative ng/ml (<50); Cocaine Screen,Urine Negative ng/ml (<300)
[2023-07-22 23:22] LABS: Methadone Screen,Urine Negative ng/ml (<300); Opiate Screen,Urine Positive ng/ml (<300)
[2023-07-22 23:23] LABS: Phencyclidine Screen,Urine Negative ng/ml (<25)
== END 2023-07-22 23:59 ==
LOC: LAB.DROPOF 21:25
PROVIDERS: PCP Physician Assistant; Visit Provider Physician Assistant
DX: Z79.899 Other long term (current) drug therapy (principal)
CPT/HCPCS: 80307

== ENCOUNTER 2023-08-19 06:50 | Outpatient (CLI) | payer MEDICARE, SELFPAY ==
--- NOTE | 2023-08-19 06:56 | CT_ITS ---
FINAL REPORT TECHNIQUE: Axial images were obtained through the chest without contrast. CLINICAL HISTORY: RUL Nodule COMPARISON: 03/01/2022 FINDINGS: There are scattered vascular calcifications present in the mediastinum. There is a ovoid mass measuring 2.3 x 1.3 cm in size, in the right upper lobe. This is similar to the mass seen on the prior CT of 2021. There is also a 5 mm mass in the posterior right upper lobe, best seen on image #4 of series 3, also stable. The heart size is normal. There is no pericardial or pleural effusion. A moderate sized hiatal hernia is present. IMPRESSION: 2.3 x 1.3 cm right upper lobe ovoid mass, similar to the previous exam. There is also a posterior right upper lobe mass, 5 mm in size, also similar to the previous exam. These may represent post inflammatory change, and PET CT could further characterize if clinically indicated. Moderate sized hiatal hernia, also unchanged from the prior exam. Reviewed, Interpreted and Dictated by Julián Garcia MD Transcribed by Meagan Young Authenticated and [facility]
[2023-08-19 09:10] VITALS: PULSE 75; PULSE 78
[2023-08-19] MEDS: ALBUTEROL 0.083% 2.5 MG/3 ML NEB IH (09:10)
== END 2023-08-19 23:59 ==
LOC: RAD 06:51
PROVIDERS: PCP Physician Assistant; Visit Provider Internal Medicine Pulmonary Disease
DX: R91.8 Other nonspecific abnormal finding of lung field (principal); R06.02 Shortness of breath
CPT/HCPCS: 71250; 94060; 94640; 94726; 94729

== ENCOUNTER 2023-08-31 14:23 | Outpatient (CLI) | payer MEDICARE, SELFPAY ==
[2023-08-31 14:58] LABS: Basophils # 0.1 K/mm3 (0-0.2); Basophils % 0.8 % (0.1-2.0); Eosinophils # 0.5 K/mm3 (0.0-0.4); Hematocrit 38.6 % (37.0-47.0); Hemoglobin 12.5 g/dL (12.2-16.2); Lymphocytes # 1.9 K/mm3 (0.7-4.5); Mean Corpuscular HGB Conc 32.5 g/dL (31.8-35.4); Mean Corpuscular Hemoglobin 29.8 pg (27.0-31.2); Mean Corpuscular Volume 91.8 fl (81-99); Mean Platelet Volume 8.6 fl (7.4-10.4); Monocytes # 0.8 K/mm3 (0.1-1.0); Neutrophils # 4.2 K/mm3 (1.8-7.8); Neutrophils % 56.1 % (37.0-80.0); Platelet Count 272 K/mm3 (142-424); Red Blood Count 4.21 M/mm3 (4.20-5.40); Red Cell Distribution Width 14.2 % (11.5-17.5); White Blood Count 7.5 K/mm3 (4.8-10.8)
[2023-08-31 15:40] LABS: Alanine Aminotransferase 21 U/L (12-78); Albumin Level 4.6 g/dl (3.5-5.0); Alkaline Phosphatase 111 U/L (38-126); Anion Gap 11.3 mEq/L (5-15); Aspartate Amino Transferase 31 U/L (14-36); Bilirubin,Direct 0.3 mg/dl (0.0-0.4); Bilirubin,Indirect 0.1 mg/dL (0.0-0.9); Bilirubin,Total 0.4 mg/dl (0.2-1.3); Bilirubin,Unconjugated 0.2 mg/dL (0.0-1.1); Blood Urea Nitrogen 29 mg/dl (7-17); Calcium 9.3 mg/dl (8.4-10.2); Carbon Dioxide 34 mmol/L (22.0-30.0); Chloride 98 mmol/L (98-107); Chol/HDL Ratio 4.1 (1-3.5); Cholesterol 209 mg/dl (140-200); Estimated Glomerular Filt Rate 47 ml/min (>60); GFR (African American) 57 ML/MIN (>60); Glucose 86 mg/dl (74-100); HDL Cholesterol 51 mg/dl (40-60); Magnesium 2.8 mg/dl (1.6-2.3); Potassium 4.3 mmoL/L (3.5-5.1); Sodium 139 mmol/L (136-145); Total Protein,Serum 7.2 g/dl (6.3-8.2); Triglycerides 141 mg/dl (30-150); VLDL Cholesterol 28 mg/dL (0-40)
[2023-08-31 15:51] LABS: Direct LDL Cholesterol 105.76 mg/dL (100-129)
[2023-08-31 15:55] LABS: Free T4 (Free Thyroxine) 0.85 ng/dl (0.78-2.19)
[2023-08-31 16:09] LABS: Thyroid Stimulating Hormone 1.78 uIU/mL (0.465-4.68)
== END 2023-08-31 23:59 ==
LOC: LAB 14:24
PROVIDERS: PCP Physician Assistant; Visit Provider Internal Medicine
DX: Z99.81 Dependence on supplemental oxygen; I48.0 Paroxysmal atrial fibrillation; Z79.899 Other long term (current) drug therapy
CPT/HCPCS: 36415; 80048; 80061; 80076; 83735; 84439; 84443; 85025

== ENCOUNTER 2023-10-29 14:51 | Outpatient (CLI) | payer MEDICARE, SELFPAY ==
[2023-10-29 15:57] LABS: Alanine Aminotransferase 20 U/L (12-78); Albumin Level 4.4 g/dl (3.5-5.0); Alkaline Phosphatase 95 U/L (38-126); Anion Gap 9.9 mEq/L (5-15); Aspartate Amino Transferase 28 U/L (14-36); Bilirubin,Direct 0.2 mg/dl (0.0-0.4); Bilirubin,Indirect 0.3 mg/dL (0.0-0.9); Bilirubin,Total 0.5 mg/dl (0.2-1.3); Bilirubin,Unconjugated 0.3 mg/dL (0.0-1.1); Blood Urea Nitrogen 31 mg/dl (7-17); Calcium 9.2 mg/dl (8.4-10.2); Carbon Dioxide 32 mmol/L (22.0-30.0); Chloride 99 mmol/L (98-107); Chol/HDL Ratio 3.2 (1-3.5); Cholesterol 199 mg/dl (140-200); Estimated Glomerular Filt Rate 42 ml/min (>60); GFR (African American) 51 ML/MIN (>60); Glucose 120 mg/dl (74-100); HDL Cholesterol 63 mg/dl (40-60); Magnesium 2.2 mg/dl (1.6-2.3); Potassium 3.9 mmoL/L (3.5-5.1); Sodium 137 mmol/L (136-145); Total Protein,Serum 6.9 g/dl (6.3-8.2); Triglycerides 151 mg/dl (30-150); VLDL Cholesterol 30 mg/dL (0-40)
[2023-10-29 16:08] LABS: Direct LDL Cholesterol 109.73 mg/dL (100-129)
[2023-10-29 16:14] LABS: Free T4 (Free Thyroxine) 0.86 ng/dl (0.78-2.19)
[2023-10-29 16:27] LABS: Thyroid Stimulating Hormone 2.41 uIU/mL (0.465-4.68)
== END 2023-10-29 23:59 | disposition home or self-care (01) ==
LOC: LAB 14:52
PROVIDERS: PCP Physician Assistant; Visit Provider Internal Medicine
DX: I10 Essential (primary) hypertension (principal); I48.0 Paroxysmal atrial fibrillation; I35.1 Nonrheumatic aortic (valve) insufficiency; Z87.891 Personal history of nicotine dependence; Z99.81 Dependence on supplemental oxygen
CPT/HCPCS: 36415; 80048; 80061; 80076; 83735; 84439; 84443

== ENCOUNTER 2024-01-27 09:51 | Outpatient (CLI) | payer MEDICARE, SELFPAY ==
--- NOTE | 2024-01-27 09:55 | XR_ITS ---
FINAL REPORT CLINICAL HISTORY: lt knee pain FINDINGS: Left knee Three views were obtained. There is no acute fracture or dislocation. There is advanced medial compartment joint space narrowing and subchondral sclerosis. There is moderate narrowing of the patellofemoral joint. There are multiple calcific or ossific density superior to the patella measuring up to 1.4 cm. Small joint effusion is identified. IMPRESSION: Advanced changes of osteoarthritis. Intra-articular loose bodies. Reviewed, Interpreted and Dictated by Julián Garcia MD Transcribed by Whitley Mahoney Authenticated and [facility]
--- NOTE | 2024-01-27 09:55 | XR_ITS ---
FINAL REPORT CLINICAL HISTORY: Rt Knee pain FINDINGS: Right knee Three views were obtained. There is no acute fracture or dislocation. There is advanced medial compartment joint space narrowing and subchondral sclerosis. No soft tissue abnormality is identified. IMPRESSION: Advanced changes of osteoarthritis. Reviewed, Interpreted and Dictated by Julián Garcia MD Transcribed by Whitley Mahoney Authenticated and . [facility]
== END 2024-01-27 23:59 | disposition home or self-care (01) ==
LOC: RAD 09:52
PROVIDERS: PCP Physician Assistant; Visit Provider Physician Assistant
DX: M25.562 Pain in left knee; M25.561 Pain in right knee
CPT/HCPCS: 73562

== ENCOUNTER 2024-02-09 13:37 | Outpatient (CLI) | payer MEDICARE, SELFPAY ==
--- NOTE | 2024-02-09 13:37 | CA_ITS ---
APPROVED REPORT EXAM: Comprehensive 2D, Doppler, and color-flow Echocardiogram Hop Strainer: Keiry Holman RVT Ht: 5 ft 4 in Wt: 165lbs BSA: 1.80 BP: 129/82 mmHg Indications: A-FIB,EX SMOKER,SOA,ON O2,COPD TDS-OVERLAYING LUNG 2D Dimensions IVSd 0.80 cm F: 0.6-1.0 LVEF (Visual) 58.20 % PWd 0.84 cm F: 0.6 - 1.0 LA Volume 66.70 mL LVDd 4.12 cm F: 3.9 - 5.3 LA Volume Index 37.06 mL/m2 (M/F) 16-34 LVDs 2.87 cm F: 2.2 - 3.5 M-Mode Dimensions LA Diam 4.01 cm (1.9-4.0) LV Diastology E Decel Time 227 (160-240 msec) E/A Ratio 0.8 Aortic Valve MARICHUY Index 1.14 cm2/m2 AoV Peak Sudeep. 147.0 (50-130 cm/s) AI PHT 1603.00 ms AO Peak GR. 8.60 mmHg AO Mean GR. 4.10 (<5 mmHg) AO VTI 28.1 (18-25 cm) MARICHUY (VTI) 2.10 (2.5-4.5 cm2) Mitral Valve MV E Max Sudeep. 82.0 (40-130 cm/s) MV A Velocity 106.0 (40-130 cm/s) E/A Ratio 0.77 MV PHT 66.0 ms Pulmonary Valve PV Peak Velocity 100.0 (50-150 cm/s) Tricuspid Valve TR P. Velocity 333.00 cm/s RAP Estimate 10.00 mmHg RVSP 54.40 mmHg Left Ventricle The left ventricle is normal size. The left ventricular systolic function is normal. The left ventricular ejection fraction is within the normal range. There is increased LV wall thickness. There is normal LV segmental wall motion. Diastolic function is indeterminate. LVEF is 55%. Right Ventricle Right ventricle is mildly dilated. Right ventricle is mildly hypokinetic. Atria Left atrium is mildly dilated. The right atrium size is normal. There is no Doppler evidence of interatrial shunt. Aortic Valve The aortic valve is mildly thickende. There is no aortic valvular stenosis. Mild aortic regurgitation. Mitral Valve Mild mitral annular calcification. The mitral valve leaflets are mildly thickened. No evidence of mitral valve stenosis. Mild mitral regurgitation. Tricuspid Valve The tricuspid valve leaflets are thin and pliable. Trace tricuspid regurgitation. There is insufficient TR jet to estimate RVSP. Pulmonic Valve The pulmonary valve is normal in structure. Trace pulmonic regurgitation. Great Vessels The aortic root is normal in size. The ascending aorta is mildly dilated, measuring 4.1 cm in diameter. IVC is normal in size and collapses >50% with inspiration. Pericardium Trivial, posterior pericardial effusion is present. No echo indications of tamponade. Other Information Study Quality: Technically Difficult Conclusion Technically difficult study due to poor accoustic windows. Normal biventricular systolic function. Mild RV dilation with mild reduction in RV function. Mild LA dilation. Mild MR, mild AI. Mildly dilated ascending aorta (4.1 cm). Trivial, posterior pericardial effusion. No echo indications of tamponade. Electronically signed by : Shima Atkinson MD 02/11/2024 13:09:26
== END 2024-02-09 23:59 | disposition home or self-care (01) ==
LOC: RT 13:37
PROVIDERS: PCP Physician Assistant; Visit Provider Internal Medicine
DX: I35.1 Nonrheumatic aortic (valve) insufficiency (principal); I48.91 Unspecified atrial fibrillation
CPT/HCPCS: 93306

== ENCOUNTER 2024-03-21 11:00 | Outpatient (CLI) | payer SELFPAY ==
[2024-03-21 20:43] LABS: Alanine Aminotransferase 19 U/L (12-78); Albumin/Globulin Ratio 1.5 (1.1-1.8); Alkaline Phosphatase 98 U/L (38-126); Anion Gap 7.8 mEq/L (5-15); Aspartate Amino Transferase 22 U/L (14-36); Bilirubin,Total 0.4 mg/dl (0.2-1.3); Blood Urea Nitrogen 19 mg/dl (7-17); Calcium 9.2 mg/dl (8.4-10.2); Carbon Dioxide 32 mmol/L (22.0-30.0); Chloride 97 mmol/L (98-107); Estimated Glomerular Filt Rate 47 ml/min (>60); GFR (African American) 57 ML/MIN (>60); Globulin 2.6 g/dL (1.3-3.2); Glucose 117 mg/dl (74-100); Potassium 3.8 mmoL/L (3.5-5.1); Sodium 133 mmol/L (136-145); Total Protein,Serum 6.6 g/dl (6.3-8.2)
== END 2024-03-21 23:59 | disposition home or self-care (01) ==
LOC: LAB.DROPOF 03-22 10:44
PROVIDERS: PCP Family Medicine; Visit Provider Family Medicine
DX: M54.9 Dorsalgia, unspecified (principal); B45.0 Pulmonary cryptococcosis
CPT/HCPCS: 80053

== ENCOUNTER 2024-05-03 14:41 | Outpatient (CLI) | payer MEDICARE, SELFPAY ==
[2024-05-03 15:22] LABS: Basophils # 0.1 K/mm3 (0-0.2); Basophils % 0.8 % (0.1-2.0); Eosinophils # 0.4 K/mm3 (0.0-0.4); Eosinophils % 4.7 % (0.1-12.0); Hematocrit 34.4 % (37.0-47.0); Lymphocytes # 1.5 K/mm3 (0.7-4.5); Lymphocytes % 17.1 % (10-50); Mean Corpuscular HGB Conc 34.9 g/dL (31.8-35.4); Mean Corpuscular Hemoglobin 29.2 pg (27.0-31.2); Mean Corpuscular Volume 83.8 fl (81-99); Mean Platelet Volume 8.1 fl (7.4-10.4); Monocytes # 0.8 K/mm3 (0.1-1.0); Neutrophils % 68.4 % (37.0-80.0); Platelet Count 359 K/mm3 (142-424); Red Cell Distribution Width 13.7 % (11.5-17.5); White Blood Count 8.8 K/mm3 (4.8-10.8)
[2024-05-03 16:04] LABS: Alanine Aminotransferase 16 U/L (12-78); Albumin Level 3.8 g/dl (3.5-5.0); Alkaline Phosphatase 89 U/L (38-126); Anion Gap 9.1 mEq/L (5-15); Aspartate Amino Transferase 19 U/L (14-36); Bilirubin,Direct 0.4 mg/dl (0.0-0.4); Bilirubin,Indirect 0.1 mg/dL (0.0-0.9); Bilirubin,Total 0.5 mg/dl (0.2-1.3); Bilirubin,Unconjugated 0.1 mg/dL (0.0-1.1); Blood Urea Nitrogen 22 mg/dl (7-17); Calcium 9.2 mg/dl (8.4-10.2); Carbon Dioxide 32 mmol/L (22.0-30.0); Chloride 97 mmol/L (98-107); Chol/HDL Ratio 3.4 (1-3.5); Cholesterol 161 mg/dl (140-200); Estimated Glomerular Filt Rate 59 ml/min (>60); GFR (African American) 71 ML/MIN (>60); Glucose 177 mg/dl (74-100); HDL Cholesterol 47 mg/dl (40-60); Magnesium 2.5 mg/dl (1.6-2.3); Potassium 4.1 mmoL/L (3.5-5.1); Sodium 134 mmol/L (136-145); Triglycerides 142 mg/dl (30-150); VLDL Cholesterol 28 mg/dL (0-40)
[2024-05-03 16:14] LABS: Direct LDL Cholesterol 92.88 mg/dL (100-129)
[2024-05-03 16:18] LABS: Free T4 (Free Thyroxine) 1.06 ng/dl (0.78-2.19)
[2024-05-03 16:33] LABS: Thyroid Stimulating Hormone 2.36 uIU/mL (0.465-4.68)
== END 2024-05-03 23:59 | disposition home or self-care (01) ==
LOC: LAB 14:42
PROVIDERS: PCP Family Medicine; Visit Provider Internal Medicine
DX: R07.89 Other chest pain (principal); E55.9 Vitamin D deficiency, unspecified; F32.A Depression, unspecified; F41.9 Anxiety disorder, unspecified; B45.0 Pulmonary cryptococcosis; J96.11 Chronic respiratory failure with hypoxia
CPT/HCPCS: 36415; 80048; 80061; 80076; 83735; 84439; 84443; 85025

== ENCOUNTER 2024-08-22 14:28 | Outpatient (CLI) | payer MEDICARE, SELFPAY ==
[2024-08-22 19:21] LABS: Basophils # 0.1 K/mm3 (0-0.2); Basophils % 0.5 % (0.1-2.0); Eosinophils # 0.4 K/mm3 (0.0-0.4); Eosinophils % 3.8 % (0.1-12.0); Hematocrit 35.6 % (37.0-47.0); Hemoglobin 11.7 g/dL (12.2-16.2); Lymphocytes # 1.8 K/mm3 (0.7-4.5); Mean Corpuscular HGB Conc 32.9 g/dL (31.8-35.4); Mean Corpuscular Hemoglobin 28.3 pg (27.0-31.2); Mean Platelet Volume 11.5 fl (7.4-10.4); Monocytes # 0.9 K/mm3 (0.1-1.0); Monocytes % 9.2 % (1.7-9.3); Neutrophils # 6.2 K/mm3 (1.8-7.8); Neutrophils % 67.1 % (37.0-80.0); Platelet Count 359 K/mm3 (142-424); Red Blood Count 4.14 M/mm3 (4.20-5.40); Red Cell Distribution Width 13.3 % (11.5-17.5); White Blood Count 9.3 K/mm3 (4.8-10.8)
[2024-08-22 22:30] LABS: Hemoglobin A1C 6.7 % (4.0-6.0)
[2024-08-22 22:46] LABS: Albumin Level 4.2 g/dl (3.5-5.0); Chloride 92 mmol/L (98-107); Potassium 4.3 mmoL/L (3.5-5.1); Sodium 134 mmol/L (136-145)
[2024-08-22 22:48] LABS: Blood Urea Nitrogen 24 mg/dl (7-17); Estimated Glomerular Filt Rate 42 ml/min (>60); GFR (African American) 51 ML/MIN (>60)
[2024-08-22 22:49] LABS: Alanine Aminotransferase 19 U/L (12-78); Albumin/Globulin Ratio 1.8 (1.1-1.8); Alkaline Phosphatase 80 U/L (38-126); Anion Gap 14.3 mEq/L (5-15); Aspartate Amino Transferase 24 U/L (14-36); Bilirubin,Total 0.3 mg/dl (0.2-1.3); Calcium 9.6 mg/dl (8.4-10.2); Carbon Dioxide 32 mmol/L (22.0-30.0); Chol/HDL Ratio 3.3 (1-3.5); Cholesterol 173 mg/dl (140-200); Globulin 2.3 g/dL (1.3-3.2); Glucose 106 mg/dl (74-100); HDL Cholesterol 52 mg/dl (40-60); Total Protein,Serum 6.5 g/dl (6.3-8.2); Triglycerides 152 mg/dl (30-150); VLDL Cholesterol 30 mg/dL (0-40)
[2024-08-22 23:00] LABS: Direct LDL Cholesterol 84.21 mg/dL (100-129)
[2024-08-22 23:20] LABS: Thyroid Stimulating Hormone 1.27 uIU/mL (0.465-4.68)
== END 2024-08-22 23:59 | disposition home or self-care (01) ==
LOC: LAB.DROPOF 08-23 17:54
PROVIDERS: PCP Family Medicine; Visit Provider Family Medicine
DX: E11.9 Type 2 diabetes mellitus without complications (principal); D50.9 Iron deficiency anemia, unspecified; I50.9 Heart failure, unspecified; R53.83 Other fatigue
CPT/HCPCS: 80053; 80061; 83036; 84443; 85025

== ENCOUNTER 2024-08-25 14:53 | Outpatient (CLI) | payer MEDICARE, SELFPAY ==
--- NOTE | 2024-08-25 14:59 | CT_ITS ---
FINAL REPORT TECHNIQUE: After the administration of intravenous contrast, axial images through the chest were performed by computed tomography. Coronal and sagittal reformatted images were obtained and reviewed. This study was performed with techniques to keep radiation doses as low as reasonably achievable, (ALARA). Individualized dose reduction techniques using automated exposure control or adjustment of mA and/or kV according to the patient's size were employed. CLINICAL HISTORY: RUL Nodule COMPARISON: 08/19/2023 FINDINGS: There is an oval nodule in the right upper lobe on image 19 measuring 21 x 12 mm, unchanged from the prior. There is a 4 mm right upper lobe nodule on image 29, unchanged from the prior. There are a few tiny nodules in the right lower lobe, some of which are calcified, unchanged from the prior. There is no evidence of new pulmonary nodule. No adenopathy or effusion. The right thyroid nodule is stable. There is a moderate-sized hiatal hernia. IMPRESSION: Dominant right upper lobe nodule measuring up to 21 mm, unchanged. This remains indeterminate for neoplasm. Smaller nodules, some of which are calcified, stable. Continued imaging follow-up recommended. Reviewed, Interpreted and Dictated by Nancy Preston MD Transcribed by Hali Menchaca Authenticated and [facility]
[2024-08-25] MEDS: IOPAMIDOL-370 (76%);100ML BOTTLE 75 ML IV (15:44)
[2024-08-25] MEDS: SODIUM CHLORIDE 0.9% 10ML SYR (RAD ONLY) 10 ML IV (15:45)
== END 2024-08-25 23:59 | disposition home or self-care (01) ==
PROVIDERS: PCP Family Medicine; Visit Provider Internal Medicine Pulmonary Disease
DX: R59.0 Localized enlarged lymph nodes (principal)
CPT/HCPCS: 71260; Q9967

== ENCOUNTER 2024-09-08 12:18 | Outpatient (CLI) | payer MEDICARE, SELFPAY ==
--- NOTE | 2024-09-08 12:23 | XR_ITS ---
FINAL REPORT CLINICAL HISTORY: Lt Shoulder pain. PAIN FROM FALL FINDINGS: LEFT SHOULDER Three views were obtained. There is no fracture or dislocation. There are mild hypertrophic changes of the AC joint. The bones are osteopenic. No soft tissue abnormality is identified. IMPRESSION: No acute process. Reviewed, Interpreted and Dictated by Julián Garcia MD Transcribed by Whitley Mahoney Authenticated and [facility]
== END 2024-09-08 23:59 | disposition home or self-care (01) ==
LOC: RAD 12:20
PROVIDERS: PCP Family Medicine; Visit Provider Physician Assistant
DX: M75.42 Impingement syndrome of left shoulder (principal)
CPT/HCPCS: 73030

== ENCOUNTER 2024-11-10 14:16 | Outpatient (CLI) | payer MEDICARE, SELFPAY ==
[2024-11-10 19:08] LABS: Basophils % 0.4 % (0.1-2.0); Eosinophils # 0.4 Kmm3 (0.0-0.4); Eosinophils % 4.9 % (0.1-12.0); Hemoglobin 11.6 g/dL (12.2-16.2); Immature Granulocytes # 0.05 10^3uL; Immature Granulocytes % 0.6 %; Lymphocytes # 1.8 K/mm3 (0.7-4.5); Lymphocytes % 19.6 % (10-50); Mean Corpuscular HGB Conc 32.2 g/dL (31.8-35.4); Mean Corpuscular Hemoglobin 28.3 pg (27.0-31.2); Mean Corpuscular Volume 87.8 fl (81-99); Monocytes # 0.8 K/mm3 (0.1-1.0); Monocytes % 8.8 % (1.7-9.3); Neutrophils # 5.9 K/mm3 (1.8-7.8); Neutrophils % 65.7 % (37.0-80.0); Nucleated Red Blood Cells # 0 10^3/uL; Nucleated Red Blood Cells % 0 %; Platelet Count 362 K/mm3 (142-424); Red Cell Distribution Width 13.3 % (11.5-17.5); Red Cell Distribution Width-SD 42.7 fL
[2024-11-10 19:46] LABS: Hemoglobin A1C 6.5 % (4.0-6.0)
[2024-11-10 20:04] LABS: Albumin Level 3.9 g/dl (3.5-5.0); Chloride 104 mmol/L (98-107); Potassium 4.5 mmoL/L (3.5-5.1); Sodium 136 mmol/L (136-145)
[2024-11-10 20:06] LABS: Blood Urea Nitrogen 18 mg/dl (7-17); Estimated Glomerular Filt Rate 68 ml/min (>60); GFR (African American) 82 ML/MIN (>60)
[2024-11-10 20:07] LABS: Alanine Aminotransferase 14 U/L (12-78); Albumin/Globulin Ratio 1.7 (1.1-1.8); Alkaline Phosphatase 76 U/L (38-126); Anion Gap 8.5 mEq/L (5-15); Aspartate Amino Transferase 18 U/L (14-36); Bilirubin,Total 0.2 mg/dl (0.2-1.3); Calcium 9.2 mg/dl (8.4-10.2); Carbon Dioxide 28 mmol/L (22.0-30.0); Chol/HDL Ratio 2.9 (1-3.5); Cholesterol 150 mg/dl (140-200); Globulin 2.3 g/dL (1.3-3.2); Glucose 79 mg/dl (74-100); HDL Cholesterol 51 mg/dl (40-60); Total Protein,Serum 6.2 g/dl (6.3-8.2); Triglycerides 115 mg/dl (30-150); VLDL Cholesterol 23 mg/dL (0-40)
[2024-11-10 20:19] LABS: Direct LDL Cholesterol 69.64 mg/dL (100-129)
== END 2024-11-10 23:59 | disposition home or self-care (01) ==
LOC: LAB.DROPOF 11-11 11:12
PROVIDERS: PCP Family Medicine; Visit Provider Family Medicine
DX: J44.89 Other specified chronic obstructive pulmonary disease (principal); I48.0 Paroxysmal atrial fibrillation; D50.9 Iron deficiency anemia, unspecified; E11.9 Type 2 diabetes mellitus without complications
CPT/HCPCS: 80053; 80061; 83036; 85025